=== PATIENT | male | born 1965 | race Caucasian/White ===

== ENCOUNTER → 2016-11-11 | Outpatient (CLI) | payer BC | LOC: MW.LAB 08:41 | PROVIDERS: ATTEND Transplant Surgery | DX: Z51.81 Encounter for therapeutic drug level monitoring (principal); Z79.899 Other long term (current) drug therapy; Z94.4 Liver transplant status | CPT/HCPCS: 36415; 80053; 80197; 82248; 82977; 85025; 85610; 87497 ==

== ENCOUNTER → 2016-11-25 | Outpatient (CLI) | payer BC | LOC: MW.LAB 08:47 | PROVIDERS: ATTEND Transplant Surgery | DX: Z51.81 Encounter for therapeutic drug level monitoring (principal); Z79.899 Other long term (current) drug therapy; Z94.4 Liver transplant status | CPT/HCPCS: 36415; 80053; 80197; 82248; 82977; 85025; 85610 ==

== ENCOUNTER → 2016-12-09 | Outpatient (CLI) | payer BC | END | disposition home or self-care (01) | LOC: MW.LAB 08:48 | PROVIDERS: ATTEND Internal Medicine | DX: Z51.81 Encounter for therapeutic drug level monitoring (principal); R60.9 Edema, unspecified; N18.3 Chronic kidney disease, stage 3 (moderate); Z94.0 Kidney transplant status; Z94.4 Liver transplant status | CPT/HCPCS: 36415; 81001; 82247; 82248; 82570; 84100; 84156; 84550 ==

== ENCOUNTER → 2016-12-09 | Outpatient (CLI) | payer BC | END | disposition home or self-care (01) | LOC: MW.LAB 08:44 | PROVIDERS: ATTEND Transplant Surgery | DX: Z51.81 Encounter for therapeutic drug level monitoring (principal); Z94.4 Liver transplant status; Z79.899 Other long term (current) drug therapy; R60.9 Edema, unspecified; N18.3 Chronic kidney disease, stage 3 (moderate); Z94.0 Kidney transplant status | CPT/HCPCS: 36415; 80053; 80197; 81001; 82247; 82248; 82570; 82977; 84100; 84156; 84550; 85025; 85610 ==

== ENCOUNTER → 2016-12-16 | Outpatient (CLI) | payer BC | LOC: MW.LAB 08:38 | PROVIDERS: ATTEND Transplant Surgery | DX: Z51.81 Encounter for therapeutic drug level monitoring (principal); Z79.899 Other long term (current) drug therapy; Z94.4 Liver transplant status | CPT/HCPCS: 36415; 80053; 80197; 82248; 82977; 85025; 85610 ==

== ENCOUNTER → 2016-12-26 | Outpatient (CLI) | payer BC | END | disposition home or self-care (01) | LOC: MW.LAB 08:48 | PROVIDERS: ATTEND Transplant Surgery | DX: Z51.81 Encounter for therapeutic drug level monitoring (principal); Z79.899 Other long term (current) drug therapy; Z94.4 Liver transplant status | CPT/HCPCS: 36415; 80053; 80197; 82248; 82977; 85025; 85610 ==

== ENCOUNTER → 2016-12-27 | Outpatient (CLI) | payer BC | LOC: MW.CHFP 12:14 | PROVIDERS: ATTEND Emergency Medicine | DX: E87.6 Hypokalemia (principal); E87.1 Hypo-osmolality and hyponatremia | CPT/HCPCS: 36415; 80048 ==

== ENCOUNTER → 2016-12-30 | Outpatient (CLI) | payer BC | END | disposition home or self-care (01) | LOC: MW.LAB 08:42 | PROVIDERS: ATTEND Transplant Surgery | DX: Z51.81 Encounter for therapeutic drug level monitoring (principal); Z79.899 Other long term (current) drug therapy; Z94.4 Liver transplant status | CPT/HCPCS: 36415; 80053; 80197; 82248; 82977; 85025; 85610; 87497 ==

== ENCOUNTER → 2017-01-06 | Outpatient (CLI) | payer BC ==
--- NOTE | 2017-01-06 13:45 | CR ---
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 Site : 1965 Study: XRay Chest -01/06/2017 11:36:27 AM Ordering Physician: Sugey Brooks Final Report: HISTORY: Pleural effusion. Shortness of breath. Comparison: 10/07/2016. Technique: Chest, 2 views. Findings: Embolization coils in the upper abdomen. These were present previously. Elevation of the dome of the right hemidiaphragm, stable. Atelectasis at the right lung base. Central airway is normal. Osseous structures are intact. Heart size and pulmonary vasculature are stable. Impression: 1. Elevation of the dome of the right hemidiaphragm. 2. Although this could represent a subpulmonic pleural effusion, the appearance is unchanged from 10/07/2016. 3. No acute airspace disease. Dictated by Kelby Gar MD @ Jan 06 2017 1:23PM (Electronic Signature) Report Signed by Proxy and Original Signed Document filed in the Medical Record. MTDD
== END ==
LOC: MW.CHIM 10:50
PROVIDERS: ATTEND Internal Medicine
DX: J90 Pleural effusion, not elsewhere classified (principal)
CPT/HCPCS: 36415; 71020; 71020-26; 80053; 81001; 82570; 83735; 84100; 84156; 84550; 85025

== ENCOUNTER → 2017-01-13 | Outpatient (CLI) | payer BC | LOC: MW.LAB 08:25 | PROVIDERS: ATTEND Transplant Surgery | DX: Z51.81 Encounter for therapeutic drug level monitoring (principal); Z94.4 Liver transplant status; Z79.899 Other long term (current) drug therapy | CPT/HCPCS: 36415; 80053; 80197; 82248; 82977; 85025; 85610 ==

== ENCOUNTER 2021-02-18 20:43 | Emergency (ER) | payer MEDICARE, BC ==
[2021-02-18 21:28] VITALS: BP 143/88; PULSE 114
[2021-02-18] MEDS ORDERED: diphenhydrAMINE 50 MG Cap PO ONE (21:51)
--- NOTE | 2021-02-18 21:57 | EDM.PDOC ---
ED HPI GENERAL MEDICAL PROBLEM - General Chief Complaint: General Stated Complaint: SHINGLES Time Seen by Provider: 02/18/21 21:23 - History of Present Illness INITIAL COMMENTS - FREE TEXT/NARRATIVE: History of present illness: [] Patient had shingles the beginning of January. He was put on 10-day course of antivirals. He was put on steroids. Now he has crusted healed areas on his back and scalp. The pain is unbearable. He has had Dilaudid once a day prescribed by his primary doctor as well as gabapentin and he is on valacyclovir again per his . He has a diuretic and has been told by his transplant doctor that he can take one half times the recommended dose when his leg swell. He has not initiated that. He is making urine. He gets his lab work done tomorrow morning and would rather wait and have it done as scheduled. Patient also has edema in both lower extremities. That is worse than it had been recently. Review of systems: As per history of present illness and below otherwise all systems reviewed and negative. Past medical history: As per history of present illness and as reviewed below otherwise noncontributory. Surgical history: As per history of present illness and as reviewed below otherwise noncontributory. Social history: No reported history of drug or alcohol abuse. Family history: As per history of present illness and as reviewed below otherwise noncontributory. Physical exam: Constitutional - well developed, well-nourished and in no acute distress HEENT -the few crusted lesions from his prior shingles rash. Normocephalic, no evidence of trauma - external nose and mouth normal - no mass in neck and no JVD - mucosae moist EYES - full EOM, PERRL, no icterus - no evidence of inflammation, injection, or drainage Respiratory - no respiratory distress, equal bilateral expansion, lungs clear to auscultation and no abnormal lung sounds Cardiovascular - Regular Rhythm with S1 and S2 appreciated and no murmur, gallop or rub. GI - abdomen soft without distension or organomegaly - normal bowel sounds - no guard or rebound Musculoskeletal no gross deformity of long bones or joints - no tenderness but with significant venous stasis type edema and discoloration of both lower extremities. Neurologic - Alert and oriented times four - CN II-XII grossly intact - motor sensory and coordination symmetrically normal Psychiatric - appropriate mood and affect with normal thought content Hematologic - No petechiae or purpura - mucosa appropriate color and sclera not pale - normal nail bed color and refill Integument -few crusted lesions scabbed over well on his upper left posterior shoulder and neck from prior shingles. Otherwise no rash or evidence of trauma - normal turgor Diagnostics: [] Therapeutics: [] Impression: [] Plan: [] Definitive disposition and diagnosis as appropriate pending reevaluation and review of above. head,shoulders Pain Score (Numeric/FACES): 6 - Related Data Allergies Allergy/AdvReac Type Severity Reaction Status Date / Time ipratropium bromide Allergy unkown Verified 02/18/21 21:28 [From Atrovent] Home Meds: Home Meds Multivitamin [Multivitamins] 1 tab PO DAILY 09/03/14 [History] Famotidine 10 mg PO DAILY 02/18/16 [History] Polyethylene Glycol 3350 [MiraLAX] 17 gm PO DAILY PRN 02/18/16 [History] Valganciclovir HCl 900 mg PO BID 02/18/16 [History] Vitamin B Complex [B Complex] 1 each PO DAILY 02/18/16 [History] Albuterol Sulfate 2.5 mg IH Q4H PRN 05/21/16 [History] Albuterol Sulfate [Proair Hfa] 1 inh IH Q4H PRN 05/21/16 [History] Cetirizine [ZyrTEC] 10 mg PO DAILY 05/21/16 [History] Cholecalciferol (Vitamin D3) [Vitamin D3] 1,000 mg PO DAILY 05/21/16 [History] Methylcellulose [Citrucel] 1,000 mg PO TID PRN 05/21/16 [History] Sertraline [Zoloft] 100 mg PO DAILY 05/21/16 [History] Sirolimus [Rapamune] 3 mg PO DAILY 05/21/16 [History] Tacrolimus [Prograf] 1 mg PO BEDTIME 05/21/16 [History] Tacrolimus [Prograf] 2 mg PO DAILY 05/21/16 [History] Acetaminophen/oxyCODONE [Percocet 325-5 MG] 1 - 2 each PO Q4H PRN #20 tab 02/18/21 [Rx] Past Medical History HEENT History: Reports: Impaired Vision, Other (See Below) Other HEENT History: chronic post nasal drip Cardiovascular History: Reports: Stents Respiratory History: Reports: Asthma, Other (See Below) Other Respiratory History: breathing problems- on 1L O2 at home as needed Gastrointestinal History: Reports: Other (See Below) Other Gastrointestinal History: esophageal varices, fatty liver disease Genitourinary History: Reports: Renal Disease Psychiatric History: Reports: Depression Hematologic History: Reports: Blood Transfusion(s) Other Hematologic History: easy bruising/bleeding Immunologic History: Reports: Immunosuppression, Solid Organ Transplant Other Immunologic History: Liver transplant x2 and kidney x1 - Infectious Disease History Infectious Disease History: Reports: MRSA, Other (See Below) Other Infectious Disease History: CMV - Past Surgical History Cardiovascular Surgical History: Reports: Other (See Below) Other Cardiovascular Surgeries/Procedures: stent x 1 Respiratory Surgical History: Reports: None GI Surgical History: Reports: Other (See Below) Other GI Surgeries/Procedures: TIPS procedure June 2015; liver transplant x2 First June 2015, Second August 2015 Male Surgical History: Reports: Other (See Below) Other Male Surgeries/Procedures: Kidney transplant August 2015 Musculoskeletal Surgical History: Reports: Other (See Below) Other Musculoskeletal Surgeries/Procedures:: hip surgery 2000 Social & Family History - Family History Family Medical History: No Pertinent Family History HEENT: Reports: Impaired Vision Cardiac: Reports: CAD, Heart Failure Respiratory: Reports: Asthma OBGYN: Reports: Endometriosis Endocrine/Metabolic: Reports: Diabetes, type II - Caffeine Use Caffeine Use: Reports: None - Recreational Drug Use Recreational Drug Use: No ED ROS GENERAL - Review of Systems Review Of Systems: Comprehensive ROS is negative, except as noted in HPI. ED EXAM, GENERAL - Physical Exam Exam: See Below Free Text/Narrative:: My physical exam is in the HPI. Course - Vital Signs Last Recorded V/S: Last Vital Signs Temp 36.1 C 02/18/21 21:22 Pulse 114 H 02/18/21 21:22 Resp 20 02/18/21 21:22 BP 143/88 H 02/18/21 21:22 Pulse Ox 88 L 02/18/21 21:22 - Orders/Labs/Meds Orders: Active Orders 24 hr Category Date Time Status diphenhydrAMINE [Benadryl] Med 02/18/21 21:51 Once 50 mg PO ONETIME ONE Departure - Departure Time of Disposition: 21:54 Disposition: Home, Self-Care 01 Condition: Good Clinical Impression: Post herpetic neuralgia, Pedal edema - Discharge Information Instructions: Postherpetic Neuralgia, Edema, [id number] Referrals: Kelby Huerta MD [Primary Care Provider] - Additional Instructions: Take the extra diuretic as your physician as advised. Tried diphenhydramine or Benadryl for sleep. The pain medicine can be titrated better than the once a day dose that was originally prescribed. That has been sent to your pharmacy to be picked up tomorrow. [facility] [address] [place] [id number] [address] The following information is given to patients seen in the emergency department who are being discharged to home. This information is to outline your options for follow-up care. We provide all patients seen in our emergency department with a follow-up referral. The need for follow-up, as well as the timing and circumstances, are variable depending upon the specifics of your emergency department visit. If you don't have a primary care physician on staff, we will provide you with a referral. We always advise you to contact your personal physician following an emergency department visit to inform them of the circumstance of the visit and for follow-up with them and/or the need for any referrals to a consulting specialist. The emergency department will also refer you to a specialist when appropriate. This referral assures that you have the opportunity for follow-up care with a specialist. All of these measure are taken in an effort to provide you with optimal care, which includes your follow-up. Under all circumstances we always encourage you to contact your private physician who remains a resource for coordinating your care. When calling for follow-up care, please make the office aware that this follow-up is from your recent emergency room visit. If for any reason you are refused follow-up, please contact the [facility] Emergency Department at and asked to speak to the emergency department charge nurse. Sepsis Event Note (ED) - Evaluation Sepsis Screening Result: No Definite Risk - Focused Exam Vital Signs: Vital Signs Temp Pulse Resp BP Pulse Ox 02/18/21 21:22 36.1 C 114 H 20 143/88 H 88 L - My Orders Last 24 Hours: My Active Orders 02/18/21 21:51 diphenhydrAMINE [Benadryl] 50 mg PO ONETIME ONE - Assessment/Plan Last 24 Hours: My Active Orders 02/18/21 21:51 diphenhydrAMINE [Benadryl] 50 mg PO ONETIME ONE
== END 2021-02-18 22:26 | disposition home or self-care (01) ==
LOC: MW.ED 20:43
DX: B02.29 Other postherpetic nervous system involvement (principal); R60.0 Localized edema; J45.909 Unspecified asthma, uncomplicated; Z88.8 Allergy status to other drugs, medicaments and biological substances; Z79.899 Other long term (current) drug therapy
CPT/HCPCS: 99283; A9270

== ENCOUNTER 2021-02-20 15:30 | Inpatient (IN) | payer BC ==
[2021-02-20] MEDS ORDERED: Sodium Chloride 0.9% 2.5 ML Syringe FLUSH PRN (15:35)
[2021-02-20] MEDS ORDERED: Sodium Chloride 0.9% 10 ML Syringe FLUSH PRN (15:35)
--- NOTE | 2021-02-20 15:58 | PCM.EKG ---
#1 Interpretation EKG Date: 02/20/21 Time: 15:45 Rhythm: NSR Rate (Beats/Min): 96 ST-T: Normal
[2021-02-20] MEDS ORDERED: Furosemide 40 MG/4 ML VIAL IVPUSH ONE (16:24)
[2021-02-20 16:29] LABS: BLOOD UREA NITROGEN,BUN 73 mg/dL (7.0-18.0); CARBON DIOXIDE,CO2 42.2 mmol/L (21.0-32.0); CHLORIDE,CL 95 mmol/L (98-107); GLUCOSE RANDOM 119 mg/dL (74-106); POTASSIUM,K 4.3 mmol/L (3.5-5.1); SODIUM,NA 139 mmol/L (136-148)
[2021-02-20] MEDS ORDERED: Morphine 2 MG/ML SYRINGE IVPUSH ONE (18:13)
--- NOTE | 2021-02-20 19:23 | EDM.PDOC ---
ED HPI GENERAL MEDICAL PROBLEM - General Chief Complaint: General Stated Complaint: BREATHING PROBLEMS Time Seen by Provider: 02/20/21 15:35 Source of Information: Reports: Patient History Limitations: Reports: No Limitations - History of Present Illness INITIAL COMMENTS - FREE TEXT/NARRATIVE: HISTORY AND PHYSICAL: History of present illness: Patient is a 55-year-old male, with a history of coronary artery disease status post stent, asthma on 3 to 4 L nasal cannula at home per baseline, esophageal varices status post TIPS procedure, liver transplant x2 in 2014, renal transp lant in 2015 and on immunosuppressive agents, who presents emergency room today via EMS with concern of shortness of breath worse with exertion and worsening bilateral lower extremity swelling. Patient states that he has noticed increased lower extremity swelling and worsening shortness of breath with laying back or with exertion over the past several days. Patient states he was told by his transplant team to increase his Lasix dose and is currently taking 60 mg of Lasix today. Patient is currently dealing with an episode of shingles and is on his third dose of valacyclovir. Patient states that he has been having significant pain with that shingles and has been on narcotics. Per patient's , he has not been tolerating the side effects of the narcotics very well and does get quite sleepy even after 1 dose. Patient states the pain from the shingles is a "nerve pain "and was told this was related to the shingles infection by other providers. Patient's states that he was on Dilaudid but this was too strong for patient so he had called and got switched to oxycodone and no longer taking Dilaudid. Patient's states that she last gave a dose of oxycodone at 11. Patient states prior to that he took a dose of Tylenol early this morning. Patient denies fever, chills, chest pain, or cough. Denies headache, neck stiff ness, change in vision, syncope, or near syncope. Denies nausea, vomiting, abdominal pain, diarrhea, constipation, or dysuria. Has not noted any blood in urine or stool. Patient has been eating and drinking appropriately. Review of systems: As per history of present illness and below otherwise all systems reviewed and negative. Past medical history: As per history of present illness and as reviewed below otherwise noncontributory. Surgical history: As per history of present illness and as reviewed below otherwise noncontributory. Social history: See social history for further information Family history: As per history of present illness and as reviewed below otherwise noncontributory. Physical exam: General: Patient is alert, oriented, and in no acute distress. Patient sitting comfortably on exam table, patient is 90% on 4L NC. Otherwise, vitally stable and reviewed by me. HEENT: Atraumatic, normocephalic, pupils equal and reactive bilaterally, negative for conjunctival pallor or scleral icterus, mucous membranes moist, TMs normal bilaterally, throat clear, neck supple, nontender, trachea midline. No drooling or trismus noted. No meningeal signs. No hot potato voice noted. Lungs: Fine crackles to auscultation throughout all lung gomez, breath sounds equal bilaterally, chest nontender. Patient speaking clearly without breathlessness, no wheezing or stridor, no accessory muscle use or respiratory distress. Patient does become dyspneic with laying flat. Heart: S1S2, regular rate and rhythm without overt murmur Abdomen: Soft, nondistended, nontender. Negative for masses or hepatosplenomegaly. Negative for costovertebral tenderness. Pelvis: Stable nontender. Genitourinary: Deferred. Rectal: Deferred. Skin: There are crusted over lesions in a dermatomal pattern of the left shoulder/neck neck consistent with shingles. Otherwise, intact, warm, dry. No lesions or rashes noted. Extremities: 3+ bilateral pitting edema to the knees. Otherwise, atraumatic, negative for cords or calf pain. Neurovascular unremarkable. Neuro: Awake, alert, oriented. Cranial nerves II through XII unremarkable. Cerebellum unremarkable. Motor and sensory unremarkable throughout. Exam nonfocal. Notes: Patient is a 55-year-old male, with a complicated medical history including coronary artery disease, asthma on 4 L nasal cannula per baseline, liver transplant, renal transplant and immunosuppression, who presents emergency room today with concern of worsening bilateral lower extremity and shortness of breath. Per EMS report, patient was 60% when they were on scene on 4 L and transition him to 15 L nonrebreather mask. On arrival to the ED, patient is 100% on 15 L nasal cannula via EMS and transferred over to nasal cannula and is satting approximately 93 to 94% on 4 to 5 L nasal cannula. Patient is breathing comfortably on exam but does become short of breath with laying flat. Patient does have fine crackles to auscultation throughout all lung gomez and noted to have the shingles infection to his left neck/shoulder area. Will obtain cardiac evaluation at this time. See Dr. Grey's dictation for specific EKG interpretation. Otherwise, normal sinus rhythm with a rate of 96. No STEMI or signs of ischemic changes. CV is noted to have a mildly low white blood cell count at 3.06, red blood cells of 3.4, hemoglobin of 10.8, hematocrit 33.9, platelets 119 which are mildly low, otherwise mild derangements of CBC are unremarkable. D-dimer is noted to be within normal limits at 0.39. Venous blood gas shows a pH of normal at 7.4. CMP notes a chloride to be mildly low at 95, CO2 at 42.2, BUN elevated at 73 and creatinine at 1.9. Troponin negative. BNP noted to be normal at 15. Covid negative. At this time due to delayed in technology at the facility, radiology is not able to do a formal read at this time of patient's chest x-ray. However, chest x-ray shows concern for pulmonary edema with no obvious area of consolidation. Otherwise no acute cardiopulmonary findings. Will follow radiology interpr etation. Upon reevaluation of patient, he remains vitally stable and comfortable throughout stay in ED but is expressing pain due to his shingles. He is currently 4 L on nasal cannula satting at about 90% but breathing comfortably. I did call and speak to the hospitalist on-call, Dr. Waddell, and thoroughly discussed patient's case. Will admit to observation on telemetry. Voices understanding and is agreeable to plan of care. Denies any further questions or concerns at this time. Diagnostics: EKG, CBC, CMP, UA, chest x-ray, troponin, BNP, D-dimer, tacrolimus level Therapeutics: Lasix, saline lock, morphine, Tylenol Impression: Pulmonary edema Dyspnea Bilateral lower extremity edema Shingles infection Plan: Admit to observation to Dr. Waddell on telemetry Definitive disposition and diagnosis as appropriate pending reevaluation and review of above. general Pain Score (Numeric/FACES): 2 - Related Data Allergies Allergy/AdvReac Type Severity Reaction Status Date / Time ipratropium bromide Allergy unkown Verified 02/20/21 15:33 [From Atrovent] Home Meds: Home Meds Polyethylene Glycol 3350 [MiraLAX] 17 gm PO DAILY PRN 02/18/16 [History] Valganciclovir HCl 1,000 mg PO DAILY 02/18/16 [History] Vitamin B Complex [B Complex] 1 each PO DAILY 02/18/16 [History] Cetirizine [ZyrTEC] 10 mg PO DAILY PRN 05/21/16 [History] Cholecalciferol (Vitamin D3) [Vitamin D3] 1,000 mg PO DAILY 05/21/16 [History] Tacrolimus [Prograf] 0.75 mg PO DAILY 05/21/16 [History] Acetaminophen/oxyCODONE [Percocet 325-5 MG] 1 - 2 each PO Q4H PRN #20 tab 02/18/21 [Rx] Past Medical History HEENT History: Reports: Impaired Vision, Other (See Below) Other HEENT History: chronic post nasal drip Cardiovascular History: Reports: Stents Respiratory History: Reports: Asthma, Other (See Below) Other Respiratory History: breathing problems- on 4L O2 at home as needed Gastrointestinal History: Reports: Other (See Below) Other Gastrointestinal History: esophageal varices, fatty liver disease Genitourinary History: Reports: Renal Disease Psychiatric History: Reports: Depression Hematologic History: Reports: Blood Transfusion(s) Other Hematologic History: easy bruising/bleeding Immunologic History: Reports: Immunosuppression, Solid Organ Transplant Other Immunologic History: Liver transplant x2 and kidney x1 - Infectious Disease History Infectious Disease History: Reports: MRSA, Other (See Below) Other Infectious Disease History: CMV - Past Surgical History Cardiovascular Surgical History: Reports: Other (See Below) Other Cardiovascular Surgeries/Procedures: stent x 1 Respiratory Surgical History: Reports: None GI Surgical History: Reports: Other (See Below) Other GI Surgeries/Procedures: TIPS procedure June 2015; liver transplant x2 First June 2015, Second August 2015 Male Surgical History: Reports: Other (See Below) Other Male Surgeries/Procedures: Kidney transplant August 2015 Musculoskeletal Surgical History: Reports: Other (See Below) Other Musculoskeletal Surgeries/Procedures:: hip surgery 2000 Social & Family History - Family History Family Medical History: No Pertinent Family History HEENT: Reports: Impaired Vision Cardiac: Reports: CAD, Heart Failure Respiratory: Reports: Asthma OBGYN: Reports: Endometriosis Endocrine/Metabolic: Reports: Diabetes, type II - Tobacco Use Tobacco Use Status *Q: Never Tobacco User - Caffeine Use Caffeine Use: Reports: None - Recreational Drug Use Recreational Drug Use: No ED ROS GENERAL - Review of Systems Review Of Systems: Comprehensive ROS is negative, except as noted in HPI. ED EXAM, GENERAL - Physical Exam Exam: See Below (see dictation) Course - Vital Signs Last Recorded V/S: Last Vital Signs Temp 98 F 02/20/21 15:34 Pulse 101 H 02/20/21 19:10 Resp 20 02/20/21 19:10 BP 118/76 02/20/21 19:10 Pulse Ox 93 L 02/20/21 19:10 - Orders/Labs/Meds Orders: Active Orders 24 hr Category Date Time Status Cardiac Monitoring [RC] . DIRECTED Care 02/20/21 15:35 Active EKG Documentation Completion [RC] STAT Care 02/20/21 15:35 Active TACROLIMUS (FK506), BLOOD [REF] Stat Lab 02/20/21 15:36 Ordered Sodium Chloride 0.9% [Saline Flush] Med 02/20/21 15:35 Active 10 ml FLUSH ASDIRECTED PRN Sodium Chloride 0.9% [Saline Flush] Med 02/20/21 15:35 Active 2.5 ml FLUSH ASDIRECTED PRN Saline Lock Insert [OM.PC] Stat Oth 02/20/21 15:35 Ordered Medication Orders Albuterol (Albuterol 0.5% 5 Mg/Ml Neb Soln 20 Ml Bottle) 5 mg NEB Q4HRRT PRN PRN Reason: Shortness of Breath Azithromycin (Azithromycin 500 Mg Vial) 250 mg IV Q24H JAMILA Ceftriaxone Sodium (Ceftriaxone 1 Gm Vial) 1 gm IVPUSH Q24H JAMILA Furosemide (Furosemide 40 Mg/4 Ml Vial) 40 mg IVPUSH BID JAMILA Heparin Sodium (Porcine) (Heparin Sodium 5,000 Units/Ml Vial) 5,000 units SUBCUT Q8H JAMILA Azithromycin 500 mg/ Sodium (Chloride) 250 mls @ 250 mls/hr IV ONETIME JAMILA Morphine Sulfate (Morphine 2 Mg/Ml Syringe) 1 mg IVPUSH Q4H PRN PRN Reason: Pain Ondansetron HCl (Ondansetron 4 Mg/2 Ml Sdv) 4 mg IVPUSH Q4H PRN PRN Reason: Nausea/Vomiting Sodium Chloride (Sodium Chloride 0.9% 10 Ml Syringe) 10 ml FLUSH ASDIRECTED PRN PRN Reason: Keep Vein Open Last Admin: 02/20/21 15:47 Dose: 10 ml Documented by: ANNABELLE Sodium Chloride (Sodium Chloride 0.9% 2.5 Ml Syringe) 2.5 ml FLUSH ASDIRECTED PRN PRN Reason: Keep Vein Open Last Admin: 02/20/21 15:47 Dose: 2.5 ml Documented by: ANNABELLE Labs: Laboratory Tests 02/20/21 02/20/21 02/20/21 Range/Units 15:35 15:35 15:35 WBC 3.06 L (4.0-11.0) K/uL RBC 3.40 L (4.50-5.90) M/uL Hgb 10.8 L (13.0-17.0) g/dL Hct 33.9 L (38.0-50.0) % MCV 99.7 H (80.0-98.0) fL MCH 31.8 (27.0-32.0) pg MCHC 31.9 (31.0-37.0) g/dL RDW Std Deviation 65.1 H (28.0-62.0) fl RDW Coeff of Uday 18 H (11.0-15.0) % Plt Count 119 L (150-400) K/uL MPV 10.90 (7.40-12.00) fL Neut % (Auto) 72.3 (48.0-80.0) % Lymph % (Auto) 14.7 L (16.0-40.0) % Armstrong % (Auto) 11.4 (0.0-15.0) % Eos % (Auto) 1.6 (0.0-7.0) % Baso % (Auto) 0.0 (0.0-1.5) % Neut # (Auto) 2.2 (1.4-5.7) K/uL Lymph # (Auto) 0.5 L (0.6-2.4) K/uL Armstrong # (Auto) 0.4 (0.0-0.8) K/uL Eos # (Auto) 0.1 (0.0-0.7) K/uL Baso # (Auto) 0.0 (0.0-0.1) K/uL Nucleated RBC % 1.2 /100WBC Nucleated RBCs # 0 K/uL D-Dimer, Quantitative (0.0-0.50) mg/L FEU VBG pH (7.31-7.41) VBG pCO2 (41-51) mmHG VBG pO2 mmHG VBG HCO3 (23-28) mEq/L VBG Total CO2 (24-29) mmol/L VBG Base Excess (-2.0-3.0) Sodium 139 (136-148) mmol/L Potassium 4.3 (3.5-5.1) mmol/L Chloride 95 L (98-107) mmol/L Carbon Dioxide 42.2 H (21.0-32.0) mmol/L BUN 73 H (7.0-18.0) mg/dL Creatinine 1.9 H (0.8-1.3) mg/dL Est Cr Clr Drug Dosing 41.50 mL/min Estimated GFR (MDRD) 36.7 ml/min Glucose 119 H (74-106) mg/dL Calcium 9.4 (8.5-10.1) mg/dL Total Bilirubin 0.5 (0.2-1.0) mg/dL AST 20 (15-37) IU/L ALT 19 (14-63) IU/L Alkaline Phosphatase 66 (46-116) U/L Troponin I < 0.050 (0.000-0.056) ng/mL B-Natriuretic Peptide 15 (<100) PG/ML Total Protein 7.5 (6.4-8.2) g/dL Albumin 3.3 L (3.4-5.0) g/dL Globulin 4.2 H (2.6-4.0) g/dL Albumin/Globulin Ratio 0.8 L (0.9-1.6) SARS-CoV-2 RNA (ISAIAH) (NEGATIVE) 02/20/21 02/20/21 02/20/21 Range/Units 15:35 16:06 17:00 WBC (4.0-11.0) K/uL RBC (4.50-5.90) M/uL Hgb (13.0-17.0) g/dL Hct (38.0-50.0) % MCV (80.0-98.0) fL MCH (27.0-32.0) pg MCHC (31.0-37.0) g/dL RDW Std Deviation (28.0-62.0) fl RDW Coeff of Uday (11.0-15.0) % Plt Count (150-400) K/uL MPV (7.40-12.00) fL Neut % (Auto) (48.0-80.0) % Lymph % (Auto) (16.0-40.0) % Armstrong % (Auto) (0.0-15.0) % Eos % (Auto) (0.0-7.0) % Baso % (Auto) (0.0-1.5) % Neut # (Auto) (1.4-5.7) K/uL Lymph # (Auto) (0.6-2.4) K/uL Armstrong # (Auto) (0.0-0.8) K/uL Eos # (Auto) (0.0-0.7) K/uL Baso # (Auto) (0.0-0.1) K/uL Nucleated RBC % /100WBC Nucleated RBCs # K/uL D-Dimer, Quantitative 0.39 (0.0-0.50) mg/L FEU VBG pH 7.40 (7.31-7.41) VBG pCO2 74 H (41-51) mmHG VBG pO2 37 mmHG VBG HCO3 46 H (23-28) mEq/L VBG Total CO2 43 H (24-29) mmol/L VBG Base Excess 18.0 H (-2.0-3.0) Sodium (136-148) mmol/L Potassium (3.5-5.1) mmol/L Chloride (98-107) mmol/L Carbon Dioxide (21.0-32.0) mmol/L BUN (7.0-18.0) mg/dL Creatinine (0.8-1.3) mg/dL Est Cr Clr Drug Dosing mL/min Estimated GFR (MDRD) ml/min Glucose (74-106) mg/dL Calcium (8.5-10.1) mg/dL Total Bilirubin (0.2-1.0) mg/dL AST (15-37) IU/L ALT (14-63) IU/L Alkaline Phosphatase (46-116) U/L Troponin I (0.000-0.056) ng/mL B-Natriuretic Peptide (<100) PG/ML Total Protein (6.4-8.2) g/dL Albumin (3.4-5.0) g/dL Globulin (2.6-4.0) g/dL Albumin/Globulin Ratio (0.9-1.6) SARS-CoV-2 RNA (ISAIAH) NEGATIVE (NEGATIVE) Meds: Medications Generic Name Dose Route Start Last Admin Trade Name Kisha PRN Reason Stop Dose Admin Albuterol 5 mg 02/20/21 21:25 Albuterol 0.5% 5 Mg/Ml Neb Soln 20 Ml Bottle NEB Q4HRRT PRN Shortness of Breath Azithromycin 250 mg 02/21/21 09:00 Azithromycin 500 Mg Vial IV Q24H JAMILA Ceftriaxone Sodium 1 gm 02/20/21 20:15 Ceftriaxone 1 Gm Vial IVPUSH Q24H JAMILA Furosemide 40 mg 02/21/21 09:00 Furosemide 40 Mg/4 Ml Vial IVPUSH BID JAMILA Heparin Sodium (Porcine) 5,000 units 02/20/21 20:00 Heparin Sodium 5,000 Units/Ml Vial SUBCUT Q8H JAMILA Azithromycin 500 mg/ Sodium 250 mls @ 250 mls/hr 02/20/21 20:15 Chloride IV ONETIME JAMILA Morphine Sulfate 1 mg 02/20/21 21:26 Morphine 2 Mg/Ml Syringe IVPUSH Q4H PRN Pain Ondansetron HCl 4 mg 02/20/21 20:00 Ondansetron 4 Mg/2 Ml Sdv IVPUSH Q4H PRN Nausea/Vomiting Sodium Chloride 10 ml 02/20/21 15:35 02/20/21 15:47 Sodium Chloride 0.9% 10 Ml Syringe FLUSH 10 ml ASDIRECTED PRN Administration Keep Vein Open Sodium Chloride 2.5 ml 02/20/21 15:35 02/20/21 15:47 Sodium Chloride 0.9% 2.5 Ml Syringe FLUSH 2.5 ml ASDIRECTED PRN Administration Keep Vein Open Discontinued Medications Generic Name Dose Route Start Last Admin Trade Name Kisha PRN Reason Stop Dose Admin Albuterol/Ipratropium 3 ml 02/20/21 20:00 Albuterol/Ipratropium 3.0-0.5 Mg/3 Ml Neb Soln NEB Q4HRRT PRN Shortness Of Breath/wheezing Azithromycin 250 mg 02/20/21 20:08 Azithromycin 500 Mg Vial IV Q24H JAMILA Furosemide 20 mg 02/20/21 16:24 02/20/21 16:54 Furosemide 40 Mg/4 Ml Vial IVPUSH 02/20/21 16:25 20 mg NOW ONE Administration Morphine Sulfate 2 mg 02/20/21 18:13 02/20/21 18:18 Morphine 2 Mg/Ml Syringe IVPUSH 02/20/21 18:14 2 mg ONETIME ONE Administration Departure - Departure Time of Disposition: 19:31 Disposition: Refer to Observation Clinical Impression: Bilateral lower extremity edema Pulmonary edema Qualifiers: Chronicity: acute Qualified Code(s): J81.0 - Acute pulmonary edema Dyspnea Qualifiers: Dyspnea type: dyspnea on exertion Qualified Code(s): R06.00 - Dyspnea, unspecified Shingles Qualifiers: Herpes zoster complications: without complications Qualified Code(s): B02.9 - Zoster without complications - Discharge Information Sepsis Event Note (ED) - Evaluation Sepsis Screening Result: No Definite Risk - Focused Exam Vital Signs: Vital Signs Temp Pulse Resp BP Pulse Ox 02/20/21 17:50 95 19 130/77 94 L 02/20/21 17:20 93 17 108/60 95 02/20/21 16:37 98 20 103/64 90 L 02/20/21 15:34 98 F 101 H 113/78 94 L - My Orders Last 24 Hours: My Active Orders 02/20/21 15:35 Cardiac Monitoring [RC] . DIRECTED EKG Documentation Completion [RC] STAT Sodium Chloride 0.9% [Saline Flush] 10 ml FLUSH ASDIRECTED PRN Sodium Chloride 0.9% [Saline Flush] 2.5 ml FLUSH ASDIRECTED PRN Saline Lock Insert [OM.PC] Stat 02/20/21 15:36 TACROLIMUS (FK506), BLOOD [REF] Stat - Assessment/Plan Last 24 Hours: My Active Orders 02/20/21 15:35 Cardiac Monitoring [RC] . DIRECTED EKG Documentation Completion [RC] STAT Sodium Chloride 0.9% [Saline Flush] 10 ml FLUSH ASDIRECTED PRN Sodium Chloride 0.9% [Saline Flush] 2.5 ml FLUSH ASDIRECTED PRN Saline Lock Insert [OM.PC] Stat 02/20/21 15:36 TACROLIMUS ([id number]), BLOOD [REF] Stat
--- NOTE | 2021-02-20 19:33 | CR ---
For Patients: As a result of the Century Cures Act, medical imaging exams and procedure reports are released immediately into your electronic medical record. You may view this report before your referring provider. If you have questions, please contact your health care provider. INDICATION: Shortness of breath. TECHNIQUE: Chest 1 view. COMPARISON: Chest radiograph 04/25/2020. FINDINGS: Low lung volumes with bibasilar atelectasis. Stable elevation of the right hemidiaphragm. No pleural effusion or pneumothorax. Mildly increased interstitial opacities bilaterally could be due to edema or atypical infection. Stable heart size which appears mildly enlarged. Crowding of the hilar vasculature due to low lung volumes. Embolization coils in the upper abdomen. The bones are unremarkable. IMPRESSION: Mildly increased interstitial opacities bilaterally could be due to edema or atypical infection. Dictated by Ana Hamlin MD @ 02/20/2021 7:31:[address] Ana Hamlin @ Feb 20 2021 7:31PM
[2021-02-20] MEDS ORDERED: Ondansetron 4 MG/2 ML SDV IVPUSH PRN (20:00)
[2021-02-20] MEDS ORDERED: Albuterol/Ipratropium 3.0-0.5 MG/3 ML Neb Soln NEB PRN (20:00)
[2021-02-20] MEDS ORDERED: Azithromycin 500 MG Vial IV SCH (20:08)
--- NOTE | 2021-02-20 20:11 | PCM.HP.2 ---
H&P History of Present Illness - General Date of Service: 02/20/21 Admit Problem/Dx: Admission Diagnosis/Problem Admission Diagnosis/Problem Fluid imbalance - History of Present Illness Initial Comments - Free Text/Narative: Patient is a 55-year-old male, with a history of coronary artery disease status post stent, asthma, diastolic dysfunction, possible COPD on 3 to 4 L nasal cannula at home per baseline, esophageal varices status post TIPS procedure, liver transplant x2 in 2014, renal transplant in 2014 and on immunosuppressive agents, who presents emergency room today via EMS with concern of shortness of breath worse with exertion and worsening bilateral lower extremity swelling. Patient states that he has been feeling increasingly short of breath with worsening pedal edema for last 2 days. He did the ER few days back and was sent home with instructions to increase his Lasix dose. Patient states that he uses oxygen at home as needed but for last 2 days he has been needing to use it more often. Patient had an telemetry appointment with his transplant team today and they recommended increasing Lasix to 80 mg daily, they were also concerned at the amount of the opioids and gabapentin he is taking. Patient is currently dealing with episode of shingles and is on valacyclovir for that. Patient states that he has been in significant amount of pain has been take Percocet to handle his pain. Patient was initially on Dilaudid but that was making more more confused so he was switched to Percocet by the ER physician. Patient denies fever, chills, chest pain, or cough. Denies headache, neck stiff ness, change in vision, syncope, or near syncope. Denies nausea, vomiting, abdominal pain, diarrhea, constipation, or dysuria. Has not noted any blood in urine or stool. Patient has been eating and drinking appropriately. Chest x-ray in the ER showed bilateral interstitial opacities suggestive of edema versus atypical infection, patient received 20 mg IV Lasix in the ER he had already taken 60 of p.o. Lasix today. Troponin was negative, EKG did not show any changes. Patient was admitted for acute on chronic hypoxic respiratory failure. Review of chart shows that patient does have diastolic heart failure demonstrated on 2D echo done in April 2020. general Pain Score (Numeric/FACES): 2 - Related Data Allergies/Adverse Reactions: Allergies Allergy/AdvReac Type Severity Reaction Status Date / Time ipratropium bromide Allergy unkown Verified 02/20/21 15:33 [From Atrovent] Home Medications: Home Meds Polyethylene Glycol 3350 [MiraLAX] 17 gm PO DAILY PRN 02/18/16 [History] Valganciclovir HCl 1,000 mg PO DAILY 02/18/16 [History] Vitamin B Complex [B Complex] 1 each PO DAILY 02/18/16 [History] Cetirizine [ZyrTEC] 10 mg PO DAILY PRN 05/21/16 [History] Cholecalciferol (Vitamin D3) [Vitamin D3] 1,000 mg PO DAILY 05/21/16 [History] Tacrolimus [Prograf] 0.75 mg PO DAILY 05/21/16 [History] Acetaminophen/oxyCODONE [Percocet 325-5 MG] 1 - 2 each PO Q4H PRN #20 tab 02/18/21 [Rx] Past Medical History HEENT History: Reports: Impaired Vision, Other (See Below) Other HEENT History: chronic post nasal drip Cardiovascular History: Reports: Stents Respiratory History: Reports: Asthma, Other (See Below) Other Respiratory History: breathing problems- on 4L O2 at home as needed Gastrointestinal History: Reports: Other (See Below) Other Gastrointestinal History: esophageal varices, fatty liver disease Genitourinary History: Reports: Renal Disease Psychiatric History: Reports: Depression Hematologic History: Reports: Blood Transfusion(s) Other Hematologic History: easy bruising/bleeding Immunologic History: Reports: Immunosuppression, Solid Organ Transplant Other Immunologic History: Liver transplant x2 and kidney x1 - Infectious Disease History Infectious Disease History: Reports: MRSA, Other (See Below) Other Infectious Disease History: CMV - Past Surgical History Cardiovascular Surgical History: Reports: Other (See Below) Other Cardiovascular Surgeries/Procedures: stent x 1 Respiratory Surgical History: Reports: None GI Surgical History: Reports: Other (See Below) Other GI Surgeries/Procedures: TIPS procedure June 2015; liver transplant x2 First June 2015, Second August 2015 Male Surgical History: Reports: Other (See Below) Other Male Surgeries/Procedures: Kidney transplant August 2015 Musculoskeletal Surgical History: Reports: Other (See Below) Other Musculoskeletal Surgeries/Procedures:: hip surgery 2000 Social & Family History - Family History Family Medical History: No Pertinent Family History HEENT: Reports: Impaired Vision Cardiac: Reports: CAD, Heart Failure Respiratory: Reports: Asthma OBGYN: Reports: Endometriosis Endocrine/Metabolic: Reports: Diabetes, type II - Tobacco Use Tobacco Use Status *Q: Never Tobacco User - Caffeine Use Caffeine Use: Reports: None - Recreational Drug Use Recreational Drug Use: No H&P Review of Systems - Review of Systems: Review Of Systems: See Below General: Reports: Malaise, Weakness. Denies: Fever, Chills Pulmonary: Reports: Shortness of Breath. Denies: Wheezing, Pleuritic Chest Pain, Sputum Cardiovascular: Reports: Dyspnea on Exertion, Orthopnea, PND, Edema. Denies: Chest Pain, Palpitations, Lightheadedness, Claudication Gastrointestinal: Denies: Abdominal Pain, Anorexia, Black Stool, Bloody Stool Genitourinary: Denies: No Symptoms, Dysuria, Frequency, Burning, Urgency Musculoskeletal: Denies: Neck Pain, Shoulder Pain, Arm Pain Skin: Denies: Cyanosis, Jaundice, Mottled Psychiatric: Denies: Confusion, Depression, Mood Lability Exam - Exam Exam: See Below - Vital Signs Vital Signs: Last Vital Signs Temp 36.6 C 02/20/21 15:34 Pulse 101 H 02/20/21 19:10 Resp 20 02/20/21 19:10 BP 118/76 02/20/21 19:10 Pulse Ox 93 L 02/20/21 19:10 Weight: 124.738 kg - Exam Quality Assessment: Supplemental Oxygen General: Alert, Oriented, Cooperative, Mild Distress Neck: Supple, Trachea Midline Lungs: Normal Respiratory Effort, Decreased Breath Sounds, Crackles Cardiovascular: Regular Rate, Regular Rhythm GI/Abdominal Exam: Normal Bowel Sounds, Soft, Non-Tender Extremities: Pedal Edema. No: Non-Tender, No Pedal Edema - Patient Data Lab Results Last 24 hrs: Laboratory Results - last 24 hr 02/20/21 02/20/21 02/20/21 Range/Units 15:35 15:35 15:35 WBC 3.06 L (4.0-11.0) K/uL RBC 3.40 L (4.50-5.90) M/uL Hgb 10.8 L (13.0-17.0) g/dL Hct 33.9 L (38.0-50.0) % MCV 99.7 H (80.0-98.0) fL MCH 31.8 (27.0-32.0) pg MCHC 31.9 (31.0-37.0) g/dL RDW Std Deviation 65.1 H (28.0-62.0) fl RDW Coeff of Uday 18 H (11.0-15.0) % Plt Count 119 L (150-400) K/uL MPV 10.90 (7.40-12.00) fL Neut % (Auto) 72.3 (48.0-80.0) % Lymph % (Auto) 14.7 L (16.0-40.0) % [place] % (Auto) 11.4 (0.0-15.0) % Eos % (Auto) 1.6 (0.0-7.0) % Baso % (Auto) 0.0 (0.0-1.5) % Neut # (Auto) 2.2 (1.4-5.7) K/uL Lymph # (Auto) 0.5 L (0.6-2.4) K/uL [place] # (Auto) 0.4 (0.0-0.8) K/uL Eos # (Auto) 0.1 (0.0-0.7) K/uL Baso # (Auto) 0.0 (0.0-0.1) K/uL Nucleated RBC % 1.2 /100WBC Nucleated RBCs # 0 K/uL D-Dimer, Quantitative (0.0-0.50) mg/L FEU VBG pH (7.31-7.41) VBG pCO2 (41-51) mmHG VBG pO2 mmHG VBG HCO3 (23-28) mEq/L VBG Total CO2 (24-29) mmol/L VBG Base Excess (-2.0-3.0) Sodium 139 (136-148) mmol/L Potassium 4.3 (3.5-5.1) mmol/L Chloride 95 L (98-107) mmol/L Carbon Dioxide 42.2 H (21.0-32.0) mmol/L BUN 73 H (7.0-18.0) mg/dL Creatinine 1.9 H (0.8-1.3) mg/dL Est Cr Clr Drug Dosing 41.50 mL/min Estimated GFR (MDRD) 36.7 ml/min Glucose 119 H (74-106) mg/dL Calcium 9.4 (8.5-10.1) mg/dL Total Bilirubin 0.5 (0.2-1.0) mg/dL AST 20 (15-37) IU/L ALT 19 (14-63) IU/L Alkaline Phosphatase 66 (46-116) U/L Troponin I < 0.050 (0.000-0.056) ng/mL B-Natriuretic Peptide 15 (<100) PG/ML Total Protein 7.5 (6.4-8.2) g/dL Albumin 3.3 L (3.4-5.0) g/dL Globulin 4.2 H (2.6-4.0) g/dL Albumin/Globulin Ratio 0.8 L (0.9-1.6) Urine Color Urine Appearance Urine pH (5.0-8.0) Ur Specific Traer (1.001-1.035) Urine Protein (NEGATIVE) mg/dL Urine Glucose (UA) (NEGATIVE) mg/dL Urine Ketones (NEGATIVE) mg/dL Urine Occult Blood (NEGATIVE) Urine Nitrite (NEGATIVE) Urine Bilirubin (NEGATIVE) Urine Urobilinogen (<2.0) EU/dL Ur Leukocyte Esterase (NEGATIVE) SARS-CoV-2 RNA (ISAIAH) (NEGATIVE) 02/20/21 02/20/21 02/20/21 Range/Units 15:35 16:06 17:00 WBC (4.0-11.0) K/uL RBC (4.50-5.90) M/uL Hgb (13.0-17.0) g/dL Hct (38.0-50.0) % MCV (80.0-98.0) fL MCH (27.0-32.0) pg MCHC (31.0-37.0) g/dL RDW Std Deviation (28.0-62.0) fl RDW Coeff of Uday (11.0-15.0) % Plt Count (150-400) K/uL MPV (7.40-12.00) fL Neut % (Auto) (48.0-80.0) % Lymph % (Auto) (16.0-40.0) % [place] % (Auto) (0.0-15.0) % Eos % (Auto) (0.0-7.0) % Baso % (Auto) (0.0-1.5) % Neut # (Auto) (1.4-5.7) K/uL Lymph # (Auto) (0.6-2.4) K/uL [place] # (Auto) (0.0-0.8) K/uL Eos # (Auto) (0.0-0.7) K/uL Baso # (Auto) (0.0-0.1) K/uL Nucleated RBC % /100WBC Nucleated RBCs # K/uL D-Dimer, Quantitative 0.39 (0.0-0.50) mg/L FEU VBG pH 7.40 (7.31-7.41) VBG pCO2 74 H (41-51) mmHG VBG pO2 37 mmHG VBG HCO3 46 H (23-28) mEq/L VBG Total CO2 43 H (24-29) mmol/L VBG Base Excess 18.0 H (-2.0-3.0) Sodium (136-148) mmol/L Potassium (3.5-5.1) mmol/L Chloride (98-107) mmol/L Carbon Dioxide (21.0-32.0) mmol/L BUN (7.0-18.0) mg/dL Creatinine (0.8-1.3) mg/dL Est Cr Clr Drug Dosing mL/min Estimated GFR (MDRD) ml/min Glucose (74-106) mg/dL Calcium (8.5-10.1) mg/dL Total Bilirubin (0.2-1.0) mg/dL AST (15-37) IU/L ALT (14-63) IU/L Alkaline Phosphatase (46-116) U/L Troponin I (0.000-0.056) ng/mL B-Natriuretic Peptide (<100) PG/ML Total Protein (6.4-8.2) g/dL Albumin (3.4-5.0) g/dL Globulin (2.6-4.0) g/dL Albumin/Globulin Ratio (0.9-1.6) Urine Color Urine Appearance Urine pH (5.0-8.0) Ur Specific Traer (1.001-1.035) Urine Protein (NEGATIVE) mg/dL Urine Glucose (UA) (NEGATIVE) mg/dL Urine Ketones (NEGATIVE) mg/dL Urine Occult Blood (NEGATIVE) Urine Nitrite (NEGATIVE) Urine Bilirubin (NEGATIVE) Urine Urobilinogen (<2.0) EU/dL Ur Leukocyte Esterase (NEGATIVE) SARS-CoV-2 RNA (ISAIAH) NEGATIVE (NEGATIVE) 02/20/21 Range/Units 18:15 WBC (4.0-11.0) K/uL RBC (4.50-5.90) M/uL Hgb (13.0-17.0) g/dL Hct (38.0-50.0) % MCV (80.0-98.0) fL MCH (27.0-32.0) pg MCHC (31.0-37.0) g/dL RDW Std Deviation (28.0-62.0) fl RDW Coeff of Uday (11.0-15.0) % Plt Count (150-400) K/uL MPV (7.40-12.00) fL Neut % (Auto) (48.0-80.0) % Lymph % (Auto) (16.0-40.0) % [place] % (Auto) (0.0-15.0) % Eos % (Auto) (0.0-7.0) % Baso % (Auto) (0.0-1.5) % Neut # (Auto) (1.4-5.7) K/uL Lymph # (Auto) (0.6-2.4) K/uL [place] # (Auto) (0.0-0.8) K/uL Eos # (Auto) (0.0-0.7) K/uL Baso # (Auto) (0.0-0.1) K/uL Nucleated RBC % /100WBC Nucleated RBCs # K/uL D-Dimer, Quantitative (0.0-0.50) mg/L FEU VBG pH (7.31-7.41) VBG pCO2 (41-51) mmHG VBG pO2 mmHG VBG HCO3 (23-28) mEq/L VBG Total CO2 (24-29) mmol/L VBG Base Excess (-2.0-3.0) Sodium (136-148) mmol/L Potassium (3.5-5.1) mmol/L Chloride (98-107) mmol/L Carbon Dioxide (21.0-32.0) mmol/L BUN (7.0-18.0) mg/dL Creatinine (0.8-1.3) mg/dL Est Cr Clr Drug Dosing mL/min Estimated GFR (MDRD) ml/min Glucose (74-106) mg/dL Calcium (8.5-10.1) mg/dL Total Bilirubin (0.2-1.0) mg/dL AST (15-37) IU/L ALT (14-63) IU/L Alkaline Phosphatase (46-116) U/L Troponin I (0.000-0.056) ng/mL B-Natriuretic Peptide (<100) PG/ML Total Protein (6.4-8.2) g/dL Albumin (3.4-5.0) g/dL Globulin (2.6-4.0) g/dL Albumin/Globulin Ratio (0.9-1.6) Urine Color YELLOW Urine Appearance CLEAR Urine pH 5.0 (5.0-8.0) Ur Specific Traer 1.020 (1.001-1.035) Urine Protein NEGATIVE (NEGATIVE) mg/dL Urine Glucose (UA) NEGATIVE (NEGATIVE) mg/dL Urine Ketones NEGATIVE (NEGATIVE) mg/dL Urine Occult Blood NEGATIVE (NEGATIVE) Urine Nitrite NEGATIVE (NEGATIVE) Urine Bilirubin NEGATIVE (NEGATIVE) Urine Urobilinogen 0.2 (<2.0) EU/dL Ur Leukocyte Esterase NEGATIVE (NEGATIVE) SARS-CoV-2 RNA (ISAIAH) (NEGATIVE) Result Diagrams: 02/20/21 15:35 02/20/21 15:35 Sepsis Event Note - Evaluation Sepsis Screening Result: No Definite Risk - Focused Exam Vital Signs: Vital Signs Temp Pulse Resp BP Pulse Ox 02/20/21 19:10 101 H 20 118/76 93 L 02/20/21 18:24 98 18 142/97 H 93 L 02/20/21 17:50 95 19 130/77 94 L 02/20/21 17:20 93 17 108/60 95 02/20/21 16:37 98 20 103/64 90 L 02/20/21 15:34 36.6 C 101 H 113/78 94 L Problem List Initiated/Reviewed/Updated: Yes Orders Last 24hrs: Active Orders 24 hr Category Date Time Status Admission Status [Patient Status] [ADT] Stat ADT 02/20/21 18:15 Active Ambulate [RC] ASDIRECTED Care 02/20/21 20:00 Ordered Cardiac Monitoring [RC] . DIRECTED Care 02/20/21 15:35 Active EKG Documentation Completion [RC] STAT Care 02/20/21 15:35 Active Oxygen Therapy [RC] PRN Care 02/20/21 20:00 Ordered RT Aerosol Therapy [RC] ASDIRECTED Care 02/20/21 20:04 Ordered VTE/DVT Education [RC] PER UNIT ROUTINE Care 02/20/21 20:00 Ordered Vital Signs [RC] Q4H Care 02/20/21 20:00 Ordered Heart Healthy Diet [DIET] Diet 02/20/21 Dinner Ordered TACROLIMUS (FK506), BLOOD [REF] Stat Lab 02/20/21 15:36 Ordered Albuterol/Ipratropium [DuoNeb 3.0-0.5 MG/3 ML] Med 02/20/21 20:00 Ordered 3 ml NEB Q4HRRT PRN Azithromycin [Zithromax] Med 02/21/21 09:00 Ordered 250 mg IV Q24H Azithromycin [Zithromax] 500 mg Med 02/20/21 20:15 Ordered Sodium Chloride 0.9% [Normal Saline (AdvBag)] 250 ml IV ONETIME Furosemide [Lasix] Med 02/21/21 09:00 Ordered 40 mg IVPUSH BID Heparin Sodium Med 02/20/21 20:00 Ordered 5,000 units SUBCUT Q8H Ondansetron [Zofran] Med 02/20/21 20:00 Ordered 4 mg IVPUSH Q4H PRN Sodium Chloride 0.9% [Saline Flush] Med 02/20/21 15:35 Active 10 ml FLUSH ASDIRECTED PRN Sodium Chloride 0.9% [Saline Flush] Med 02/20/21 15:35 Active 2.5 ml FLUSH ASDIRECTED PRN cefTRIAXone [Rocephin] Med 02/20/21 20:15 Ordered 1 gm IVPUSH Q24H Saline Lock Insert [OM.PC] Stat Oth 02/20/21 15:35 Ordered Medication Orders Albuterol/Ipratropium (Albuterol/Ipratropium 3.0-0.5 Mg/3 Ml Neb Soln) 3 ml NEB Q4HRRT PRN PRN Reason: Shortness Of Breath/wheezing Azithromycin (Azithromycin 500 Mg Vial) 250 mg IV Q24H JAMILA Ceftriaxone Sodium (Ceftriaxone 1 Gm Vial) 1 gm IVPUSH Q24H JAMILA Furosemide (Furosemide 40 Mg/4 Ml Vial) 40 mg IVPUSH BID JAMILA Heparin Sodium (Porcine) (Heparin Sodium 5,000 Units/Ml Vial) 5,000 units SUBCUT Q8H JAMILA Azithromycin 500 mg/ Sodium (Chloride) 250 mls @ 250 mls/hr IV ONETIME JAMILA Ondansetron HCl (Ondansetron 4 Mg/2 Ml Sdv) 4 mg IVPUSH Q4H PRN PRN Reason: Nausea/Vomiting Sodium Chloride (Sodium Chloride 0.9% 10 Ml Syringe) 10 ml FLUSH ASDIRECTED PRN PRN Reason: Keep Vein Open Last Admin: 02/20/21 15:47 Dose: 10 ml Documented by: ANNABELLE Sodium Chloride (Sodium Chloride 0.9% 2.5 Ml Syringe) 2.5 ml FLUSH ASDIRECTED PRN PRN Reason: Keep Vein Open Last Admin: 02/20/21 15:47 Dose: 2.5 ml Documented by: ANNABELLE Assessment/Plan Comment:: 55-year-old admitted for acute over chronic aspiratory failure most likely secondary to acute CHF exacerbation We will start patient on IV Lasix 40 mg twice daily starting tomorrow, already received Lasix in the ER today Strict ins and outs Fluid restrictions to 1.8 We will consider resuming details on Patient's CO2 is slightly on the higher side, possible component of COPD, will start patient on BiPAP for a couple of hours Continue oxygenation as needed to keep pulse ox more than 92% IV morphine for pain secondary to shingles Check tacrolimus level Patient's kidney function and liver function seem to be at baseline, we will continue to trend We will possibly touch base with patient's transplant team in the a.m. Resume home meds as appropriate Albuterol shortness of breath as patient is allergic to ipratropium
[2021-02-20] MEDS ORDERED: Azithromycin 500 MG in Sodium Chloride 0.9% 250 ML IV SCH (20:15)
[2021-02-20] MEDS ORDERED: cefTRIAXone 1 GM Vial IVPUSH SCH (20:15)
[2021-02-20] MEDS ORDERED: Albuterol 0.5% 5 MG/ML Neb Soln 20 ML Bottle NEB PRN (21:25)
[2021-02-20] MEDS: Heparin Sodium 5,000 Units/ML Vial SUBCUT SCH (21:34)
[2021-02-20] MEDS ORDERED: TACROLIMUS 0.75 MG PO SCH ×2 (21:45→23:51)
[2021-02-20] MEDS ORDERED: Cetirizine 10 MG Tab PO PRN (21:45)
[2021-02-20] MEDS: Morphine 2 MG/ML SYRINGE IVPUSH PRN (22:08)
[2021-02-20] MEDS ORDERED: Albuterol 0.083% 2.5 MG/3 ML Neb Soln ONE (23:10)
[2021-02-21] MEDS: cefTRIAXone 1 GM in Premix Bag 1 BAG IV SCH ×2 (00:19→22:53)
[2021-02-21 05:54] LABS: POTASSIUM,K 3.7 mmol/L (3.5-5.1)
[2021-02-21] MEDS: Heparin Sodium 5,000 Units/ML Vial SUBCUT SCH ×3 (06:12→20:41)
--- NOTE | 2021-02-21 08:44 | PCM.PN ---
- General Info Date of Service: 02/21/21 Admission Dx/Problem (Free Text): Admission Diagnosis/Problem Admission Diagnosis/Problem acute on chronic hypercapnic hypoxic respiratory failure, possible CHF diastolic exacerbation Subjective Update: This morning Maco appeared restless when evaluated. Complaining of significant amount of pain to left jaw and upper shoulder where shingles are present. Vesicles are healed and crusted over pain started a few days ago and has just slowly increased. Denies any chest pain. Reports shortness of breath even with the smallest amount of exertion. Continues to have peripheral edema. and daughter at bedside respiratory therapist also present are attempting to shave patient's face in order for BiPAP to have decreased leak. Functional Status: Reports: Tolerating Diet, Urinating. Denies: Pain Controlled, Ambulating - Review of Systems General: Reports: Weakness (Generalized) HEENT: Reports: Other (Left neck jaw and shoulder pain all related to shingles). Denies: Headaches, Sore Throat, Visual Changes Pulmonary: Reports: Shortness of Breath. Denies: Cough Cardiovascular: Reports: Dyspnea on Exertion, Edema. Denies: Chest Pain Gastrointestinal: Reports: No Symptoms. Denies: Abdominal Pain, Nausea, Vomiting Genitourinary: Reports: No Symptoms. Denies: Dysuria, Frequency Musculoskeletal: Reports: No Symptoms Skin: Reports: No Symptoms Neurological: Reports: No Symptoms Psychiatric: Reports: No Symptoms - Patient Data Vitals - Most Recent: Last Vital Signs Temp 97.8 F 02/21/21 07:07 Pulse 91 02/21/21 07:07 Resp 16 02/21/21 07:07 BP 114/64 02/21/21 07:07 Pulse Ox 100 02/21/21 07:07 Weight - Most Recent: 124.738 kg I&O - Last 24 Hours: Intake & Output 02/20/21 02/21/21 02/21/21 22:59 06:59 14:59 Intake Total 618 Output Total 500 Balance 118 Lab Results Last 24 Hours: Laboratory Results - last 24 hr 02/20/21 02/20/21 02/20/21 Range/Units 15:35 15:35 15:35 WBC 3.06 L (4.0-11.0) K/uL RBC 3.40 L (4.50-5.90) M/uL Hgb 10.8 L (13.0-17.0) g/dL Hct 33.9 L (38.0-50.0) % MCV 99.7 H (80.0-98.0) fL MCH 31.8 (27.0-32.0) pg MCHC 31.9 (31.0-37.0) g/dL RDW Std Deviation 65.1 H (28.0-62.0) fl RDW Coeff of Uday 18 H (11.0-15.0) % Plt Count 119 L (150-400) K/uL MPV 10.90 (7.40-12.00) fL Neut % (Auto) 72.3 (48.0-80.0) % Lymph % (Auto) 14.7 L (16.0-40.0) % [place] % (Auto) 11.4 (0.0-15.0) % Eos % (Auto) 1.6 (0.0-7.0) % Baso % (Auto) 0.0 (0.0-1.5) % Neut # (Auto) 2.2 (1.4-5.7) K/uL Lymph # (Auto) 0.5 L (0.6-2.4) K/uL [place] # (Auto) 0.4 (0.0-0.8) K/uL Eos # (Auto) 0.1 (0.0-0.7) K/uL Baso # (Auto) 0.0 (0.0-0.1) K/uL Nucleated RBC % 1.2 /100WBC Nucleated RBCs # 0 K/uL D-Dimer, Quantitative (0.0-0.50) mg/L FEU ABG pH (7.35-7.45) ABG pCO2 (35-45) mmHG ABG pO2 (80-105) mmHG ABG HCO3 (22-26) mEq/L ABG Total CO2 (23-27) mmol/L ABG Base Excess (-2.0-3.0) VBG pH (7.31-7.41) VBG pCO2 (41-51) mmHG VBG pO2 mmHG VBG HCO3 (23-28) mEq/L VBG Total CO2 (24-29) mmol/L VBG Base Excess (-2.0-3.0) Sodium 139 (136-148) mmol/L Potassium 4.3 (3.5-5.1) mmol/L Chloride 95 L (98-107) mmol/L Carbon Dioxide 42.2 H (21.0-32.0) mmol/L BUN 73 H (7.0-18.0) mg/dL Creatinine 1.9 H (0.8-1.3) mg/dL Est Cr Clr Drug Dosing 41.50 mL/min Estimated GFR (MDRD) 36.7 ml/min Glucose 119 H (74-106) mg/dL Calcium 9.4 (8.5-10.1) mg/dL Phosphorus (2.6-4.7) mg/dL Magnesium (1.8-2.4) mg/dL Total Bilirubin 0.5 (0.2-1.0) mg/dL AST 20 (15-37) IU/L ALT 19 (14-63) IU/L Alkaline Phosphatase 66 (46-116) U/L Troponin I < 0.050 (0.000-0.056) ng/mL B-Natriuretic Peptide 15 (<100) PG/ML Total Protein 7.5 (6.4-8.2) g/dL Albumin 3.3 L (3.4-5.0) g/dL Globulin 4.2 H (2.6-4.0) g/dL Albumin/Globulin Ratio 0.8 L (0.9-1.6) Urine Color Urine Appearance Urine pH (5.0-8.0) Ur Specific [place] (1.001-1.035) Urine Protein (NEGATIVE) mg/dL Urine Glucose (UA) (NEGATIVE) mg/dL Urine Ketones (NEGATIVE) mg/dL Urine Occult Blood (NEGATIVE) Urine Nitrite (NEGATIVE) Urine Bilirubin (NEGATIVE) Urine Urobilinogen (<2.0) EU/dL Ur Leukocyte Esterase (NEGATIVE) SARS-CoV-2 RNA (ISAIAH) (NEGATIVE) 02/20/21 02/20/21 02/20/21 Range/Units 15:35 16:06 17:00 WBC (4.0-11.0) K/uL RBC (4.50-5.90) M/uL Hgb (13.0-17.0) g/dL Hct (38.0-50.0) % MCV (80.0-98.0) fL MCH (27.0-32.0) pg MCHC (31.0-37.0) g/dL RDW Std Deviation (28.0-62.0) fl RDW Coeff of Uday (11.0-15.0) % Plt Count (150-400) K/uL MPV (7.40-12.00) fL Neut % (Auto) (48.0-80.0) % Lymph % (Auto) (16.0-40.0) % [place] % (Auto) (0.0-15.0) % Eos % (Auto) (0.0-7.0) % Baso % (Auto) (0.0-1.5) % Neut # (Auto) (1.4-5.7) K/uL Lymph # (Auto) (0.6-2.4) K/uL [place] # (Auto) (0.0-0.8) K/uL Eos # (Auto) (0.0-0.7) K/uL Baso # (Auto) (0.0-0.1) K/uL Nucleated RBC % /100WBC Nucleated RBCs # K/uL D-Dimer, Quantitative 0.39 (0.0-0.50) mg/L FEU ABG pH (7.35-7.45) ABG pCO2 (35-45) mmHG ABG pO2 (80-105) mmHG ABG HCO3 (22-26) mEq/L ABG Total CO2 (23-27) mmol/L ABG Base Excess (-2.0-3.0) VBG pH 7.40 (7.31-7.41) VBG pCO2 74 H (41-51) mmHG VBG pO2 37 mmHG VBG HCO3 46 H (23-28) mEq/L VBG Total CO2 43 H (24-29) mmol/L VBG Base Excess 18.0 H (-2.0-3.0) Sodium (136-148) mmol/L Potassium (3.5-5.1) mmol/L Chloride (98-107) mmol/L Carbon Dioxide (21.0-32.0) mmol/L BUN (7.0-18.0) mg/dL Creatinine (0.8-1.3) mg/dL Est Cr Clr Drug Dosing mL/min Estimated GFR (MDRD) ml/min Glucose (74-106) mg/dL Calcium (8.5-10.1) mg/dL Phosphorus (2.6-4.7) mg/dL Magnesium (1.8-2.4) mg/dL Total Bilirubin (0.2-1.0) mg/dL AST (15-37) IU/L ALT (14-63) IU/L Alkaline Phosphatase (46-116) U/L Troponin I (0.000-0.056) ng/mL B-Natriuretic Peptide (<100) PG/ML Total Protein (6.4-8.2) g/dL Albumin (3.4-5.0) g/dL Globulin (2.6-4.0) g/dL Albumin/Globulin Ratio (0.9-1.6) Urine Color Urine Appearance Urine pH (5.0-8.0) Ur Specific [place] (1.001-1.035) Urine Protein (NEGATIVE) mg/dL Urine Glucose (UA) (NEGATIVE) mg/dL Urine Ketones (NEGATIVE) mg/dL Urine Occult Blood (NEGATIVE) Urine Nitrite (NEGATIVE) Urine Bilirubin (NEGATIVE) Urine Urobilinogen (<2.0) EU/dL Ur Leukocyte Esterase (NEGATIVE) SARS-CoV-2 RNA (ISAIAH) NEGATIVE (NEGATIVE) 02/20/21 02/21/21 02/21/21 Range/Units 18:15 05:17 05:17 WBC 2.81 L (4.0-11.0) K/uL RBC 3.48 L (4.50-5.90) M/uL Hgb 10.8 L (13.0-17.0) g/dL Hct 34.7 L (38.0-50.0) % MCV 99.7 H (80.0-98.0) fL MCH 31.0 (27.0-32.0) pg MCHC 31.1 (31.0-37.0) g/dL RDW Std Deviation 65.4 H (28.0-62.0) fl RDW Coeff of Uday 18 H (11.0-15.0) % Plt Count 125 L (150-400) K/uL MPV 10.70 (7.40-12.00) fL Neut % (Auto) 68.4 (48.0-80.0) % Lymph % (Auto) 19.2 (16.0-40.0) % [place] % (Auto) 11.0 (0.0-15.0) % Eos % (Auto) 1.4 (0.0-7.0) % Baso % (Auto) 0.0 (0.0-1.5) % Neut # (Auto) 1.9 (1.4-5.7) K/uL Lymph # (Auto) 0.5 L (0.6-2.4) K/uL [place] # (Auto) 0.3 (0.0-0.8) K/uL Eos # (Auto) 0.0 (0.0-0.7) K/uL Baso # (Auto) 0.0 (0.0-0.1) K/uL Nucleated RBC % 0.6 /100WBC Nucleated RBCs # 0 K/uL D-Dimer, Quantitative (0.0-0.50) mg/L FEU ABG pH (7.35-7.45) ABG pCO2 (35-45) mmHG ABG pO2 (80-105) mmHG ABG HCO3 (22-26) mEq/L ABG Total CO2 (23-27) mmol/L ABG Base Excess (-2.0-3.0) VBG pH (7.31-7.41) VBG pCO2 (41-51) mmHG VBG pO2 mmHG VBG HCO3 (23-28) mEq/L VBG Total CO2 (24-29) mmol/L VBG Base Excess (-2.0-3.0) Sodium 141 (136-148) mmol/L Potassium 3.7 (3.5-5.1) mmol/L Chloride 95 L (98-107) mmol/L Carbon Dioxide 44.0 H (21.0-32.0) mmol/L BUN 69 H (7.0-18.0) mg/dL Creatinine 1.9 H (0.8-1.3) mg/dL Est Cr Clr Drug Dosing 41.50 mL/min Estimated GFR (MDRD) 36.7 ml/min Glucose 112 H (74-106) mg/dL Calcium 8.9 (8.5-10.1) mg/dL Phosphorus 4.9 H (2.6-4.7) mg/dL Magnesium 2.2 (1.8-2.4) mg/dL Total Bilirubin (0.2-1.0) mg/dL AST (15-37) IU/L ALT (14-63) IU/L Alkaline Phosphatase (46-116) U/L Troponin I (0.000-0.056) ng/mL B-Natriuretic Peptide (<100) PG/ML Total Protein (6.4-8.2) g/dL Albumin (3.4-5.0) g/dL Globulin (2.6-4.0) g/dL Albumin/Globulin Ratio (0.9-1.6) Urine Color YELLOW Urine Appearance CLEAR Urine pH 5.0 (5.0-8.0) Ur Specific [place] 1.020 (1.001-1.035) Urine Protein NEGATIVE (NEGATIVE) mg/dL Urine Glucose (UA) NEGATIVE (NEGATIVE) mg/dL Urine Ketones NEGATIVE (NEGATIVE) mg/dL Urine Occult Blood NEGATIVE (NEGATIVE) Urine Nitrite NEGATIVE (NEGATIVE) Urine Bilirubin NEGATIVE (NEGATIVE) Urine Urobilinogen 0.2 (<2.0) EU/dL Ur Leukocyte Esterase NEGATIVE (NEGATIVE) SARS-CoV-2 RNA (ISAIAH) (NEGATIVE) 02/21/21 02/21/21 Range/Units 05:17 08:33 WBC (4.0-11.0) K/uL RBC (4.50-5.90) M/uL Hgb (13.0-17.0) g/dL Hct (38.0-50.0) % MCV (80.0-98.0) fL MCH (27.0-32.0) pg MCHC (31.0-37.0) g/dL RDW Std Deviation (28.0-62.0) fl RDW Coeff of Uday (11.0-15.0) % Plt Count (150-400) K/uL MPV (7.40-12.00) fL Neut % (Auto) (48.0-80.0) % Lymph % (Auto) (16.0-40.0) % [place] % (Auto) (0.0-15.0) % Eos % (Auto) (0.0-7.0) % Baso % (Auto) (0.0-1.5) % Neut # (Auto) (1.4-5.7) K/uL Lymph # (Auto) (0.6-2.4) K/uL [place] # (Auto) (0.0-0.8) K/uL Eos # (Auto) (0.0-0.7) K/uL Baso # (Auto) (0.0-0.1) K/uL Nucleated RBC % /100WBC Nucleated RBCs # K/uL D-Dimer, Quantitative (0.0-0.50) mg/L FEU ABG pH 7.41 (7.35-7.45) ABG pCO2 72 H (35-45) mmHG ABG pO2 98 (80-105) mmHG ABG HCO3 46 H (22-26) mEq/L ABG Total CO2 42.8 H (23-27) mmol/L ABG Base Excess 18.3 H (-2.0-3.0) VBG pH 7.32 (7.31-7.41) VBG pCO2 93 H (41-51) mmHG VBG pO2 31 mmHG VBG HCO3 48 H (23-28) mEq/L VBG Total CO2 45 H (24-29) mmol/L VBG Base Excess 17.5 H (-2.0-3.0) Sodium (136-148) mmol/L Potassium (3.5-5.1) mmol/L Chloride (98-107) mmol/L Carbon Dioxide (21.0-32.0) mmol/L BUN (7.0-18.0) mg/dL Creatinine (0.8-1.3) mg/dL Est Cr Clr Drug Dosing mL/min Estimated GFR (MDRD) ml/min Glucose (74-106) mg/dL Calcium (8.5-10.1) mg/dL Phosphorus (2.6-4.7) mg/dL Magnesium (1.8-2.4) mg/dL Total Bilirubin (0.2-1.0) mg/dL AST (15-37) IU/L ALT (14-63) IU/L Alkaline Phosphatase (46-116) U/L Troponin I (0.000-0.056) ng/mL B-Natriuretic Peptide (<100) PG/ML Total Protein (6.4-8.2) g/dL Albumin (3.4-5.0) g/dL Globulin (2.6-4.0) g/dL Albumin/Globulin Ratio (0.9-1.6) Urine Color Urine Appearance Urine pH (5.0-8.0) Ur Specific [place] (1.001-1.035) Urine Protein (NEGATIVE) mg/dL Urine Glucose (UA) (NEGATIVE) mg/dL Urine Ketones (NEGATIVE) mg/dL Urine Occult Blood (NEGATIVE) Urine Nitrite (NEGATIVE) Urine Bilirubin (NEGATIVE) Urine Urobilinogen (<2.0) EU/dL Ur Leukocyte Esterase (NEGATIVE) SARS-CoV-2 RNA (ISAIAH) (NEGATIVE) Med Orders - Current: Current Medications Albuterol (Albuterol 0.083% 2.5 Mg/3 Ml Neb Soln) 2.5 mg NEB Q4HRRT PRN PRN Reason: Shortness of Breath Cetirizine HCl (Cetirizine 10 Mg Tab) 10 mg PO DAILY PRN PRN Reason: Allergies Furosemide (Furosemide 40 Mg/4 Ml Vial) 40 mg IVPUSH BID [facility] Heparin Sodium (Porcine) (Heparin Sodium 5,000 Units/Ml Vial) 5,000 units SUBCUT Q8H [facility] Last Admin: 02/21/21 06:12 Dose: Not Given Documented by: Ceftriaxone Sodium/Dextrose 1 (gm/ Premix) 50 mls @ 100 mls/hr IV Q24H [facility] Last Admin: 02/21/21 00:19 Dose: 100 mls/hr Documented by: Azithromycin 500 mg/ Sodium (Chloride) 250 mls @ 250 mls/hr IV Q24H [facility] Morphine Sulfate (Morphine 2 Mg/Ml Syringe) 1 mg IVPUSH Q4H PRN PRN Reason: Pain Last Admin: 02/20/21 22:08 Dose: 1 mg Documented by: Mycophenolate Mofetil (Mycophenolate Mofetil 250 Mg Cap Own Med) 250 mg PO BID [facility] Ondansetron HCl (Ondansetron 4 Mg/2 Ml Sdv) 4 mg IVPUSH Q4H PRN PRN Reason: Nausea/Vomiting Polyethylene Glycol (Polyethylene Glycol 3350 Powder 17 Gm Packet) 17 gm PO DAILY PRN PRN Reason: Constipation Sodium Chloride (Sodium Chloride 0.9% 10 Ml Syringe) 10 ml FLUSH ASDIRECTED PRN PRN Reason: Keep Vein Open Last Admin: 02/20/21 15:47 Dose: 10 ml Documented by: Sodium Chloride (Sodium Chloride 0.9% 2.5 Ml Syringe) 2.5 ml FLUSH ASDIRECTED P RN PRN Reason: Keep Vein Open Last Admin: 02/20/21 15:47 Dose: 2.5 ml Documented by: Tacrolimus (Tacrolimus 0.75 Mg CapOwn Med) 0 mg PO DAILY [facility] Valacyclovir HCl (Valacyclovir 500 Mg Tab) 1,000 mg PO DAILY [facility] Discontinued Medications Albuterol (Albuterol 0.083% 2.5 Mg/3 Ml Neb Soln) Confirm Administered Dose 2.5 mg .ROUTE .STK-MED ONE Stop: 02/20/21 23:11 Last Admin: 02/20/21 23:19 Dose: 2.5 mg Documented by: Albuterol/Ipratropium (Albuterol/Ipratropium 3.0-0.5 Mg/3 Ml Neb Soln) 3 ml NEB Q4HRRT PRN PRN Reason: Shortness Of Breath/wheezing Azithromycin (Azithromycin 500 Mg Vial) 250 mg IV Q24H [facility] Last Admin: 02/20/21 22:40 Dose: Not Given Documented by: Ceftriaxone Sodium (Ceftriaxone 1 Gm Vial) 1 gm IVPUSH Q24H [facility] Last Admin: 02/20/21 22:54 Dose: Not Given Documented by: Furosemide (Furosemide 40 Mg/4 Ml Vial) 20 mg IVPUSH NOW ONE Stop: 02/20/21 16:25 Last Admin: 02/20/21 16:54 Dose: 20 mg Documented by: Azithromycin 500 mg/ Sodium (Chloride) 250 mls @ 250 mls/hr IV ONETIME [facility] Last Admin: 02/20/21 22:10 Dose: 250 mls/hr Documented by: Morphine Sulfate (Morphine 2 Mg/Ml Syringe) 2 mg IVPUSH ONETIME ONE Stop: 02/20/21 18:14 Last Admin: 02/20/21 18:18 Dose: 2 mg Documented by: Tacrolimus (Tacrolimus 0.75 Mg CapOwn Med) 0 mg PO DAILY [facility] Last Admin: 02/21/21 02:18 Dose: Not Given Documented by: - Exam Quality Assessment: Supplemental Oxygen (BiPAP in place), DVT Prophylaxis (Heparin) General: Alert, Oriented, Cooperative, No Acute Distress Lungs: Decreased Breath Sounds, Crackles. No: Normal Respiratory Effort (Dyspne a) Cardiovascular: Regular Rate, Regular Rhythm GI/Abdominal Exam: Normal Bowel Sounds, Soft, Non-Tender, Other (Obese abdomen limits exam) Extremities: Normal Inspection, Normal Range of Motion, Pedal Edema (+3 pitting edema extending from thighs distally to feet skin is taut and shiny no erythema or signs of infection noted) Neurological: No New Focal Deficit Psy/Mental Status: Alert, Anxious, Agitated - Patient Data Lab Results Last 24 hrs: Laboratory Results - last 24 hr 02/20/21 02/20/21 02/20/21 Range/Units 15:35 15:35 15:35 WBC 3.06 L (4.0-11.0) K/uL RBC 3.40 L (4.50-5.90) M/uL Hgb 10.8 L (13.0-17.0) g/dL Hct 33.9 L (38.0-50.0) % MCV 99.7 H (80.0-98.0) fL MCH 31.8 (27.0-32.0) pg MCHC 31.9 (31.0-37.0) g/dL RDW Std Deviation 65.1 H (28.0-62.0) fl RDW Coeff of Uday 18 H (11.0-15.0) % Plt Count 119 L (150-400) K/uL MPV 10.90 (7.40-12.00) fL Neut % (Auto) 72.3 (48.0-80.0) % Lymph % (Auto) 14.7 L (16.0-40.0) % [place] % (Auto) 11.4 (0.0-15.0) % Eos % (Auto) 1.6 (0.0-7.0) % Baso % (Auto) 0.0 (0.0-1.5) % Neut # (Auto) 2.2 (1.4-5.7) K/uL Lymph # (Auto) 0.5 L (0.6-2.4) K/uL [place] # (Auto) 0.4 (0.0-0.8) K/uL Eos # (Auto) 0.1 (0.0-0.7) K/uL Baso # (Auto) 0.0 (0.0-0.1) K/uL Nucleated RBC % 1.2 /100WBC Nucleated RBCs # 0 K/uL D-Dimer, Quantitative (0.0-0.50) mg/L FEU ABG pH (7.35-7.45) ABG pCO2 (35-45) mmHG ABG pO2 (80-105) mmHG ABG HCO3 (22-26) mEq/L ABG Total CO2 (23-27) mmol/L ABG Base Excess (-2.0-3.0) VBG pH (7.31-7.41) VBG pCO2 (41-51) mmHG VBG pO2 mmHG VBG HCO3 (23-28) mEq/L VBG Total CO2 (24-29) mmol/L VBG Base Excess (-2.0-3.0) Sodium 139 (136-148) mmol/L Potassium 4.3 (3.5-5.1) mmol/L Chloride 95 L (98-107) mmol/L Carbon Dioxide 42.2 H (21.0-32.0) mmol/L BUN 73 H (7.0-18.0) mg/dL Creatinine 1.9 H (0.8-1.3) mg/dL Est Cr Clr Drug Dosing 41.50 mL/min Estimated GFR (MDRD) 36.7 ml/min Glucose 119 H (74-106) mg/dL Calcium 9.4 (8.5-10.1) mg/dL Phosphorus (2.6-4.7) mg/dL Magnesium (1.8-2.4) mg/dL Total Bilirubin 0.5 (0.2-1.0) mg/dL AST 20 (15-37) IU/L ALT 19 (14-63) IU/L Alkaline Phosphatase 66 (46-116) U/L Troponin I < 0.050 (0.000-0.056) ng/mL B-Natriuretic Peptide 15 (<100) PG/ML Total Protein 7.5 (6.4-8.2) g/dL Albumin 3.3 L (3.4-5.0) g/dL Globulin 4.2 H (2.6-4.0) g/dL Albumin/Globulin Ratio 0.8 L (0.9-1.6) Urine Color Urine Appearance Urine pH (5.0-8.0) Ur Specific [place] (1.001-1.035) Urine Protein (NEGATIVE) mg/dL Urine Glucose (UA) (NEGATIVE) mg/dL Urine Ketones (NEGATIVE) mg/dL Urine Occult Blood (NEGATIVE) Urine Nitrite (NEGATIVE) Urine Bilirubin (NEGATIVE) Urine Urobilinogen (<2.0) EU/dL Ur Leukocyte Esterase (NEGATIVE) SARS-CoV-2 RNA (ISAIAH) (NEGATIVE) 02/20/21 02/20/21 02/20/21 Range/Units 15:35 16:06 17:00 WBC (4.0-11.0) K/uL RBC (4.50-5.90) M/uL Hgb (13.0-17.0) g/dL Hct (38.0-50.0) % MCV (80.0-98.0) fL MCH (27.0-32.0) pg MCHC (31.0-37.0) g/dL RDW Std Deviation (28.0-62.0) fl RDW Coeff of Uday (11.0-15.0) % Plt Count (150-400) K/uL MPV (7.40-12.00) fL Neut % (Auto) (48.0-80.0) % Lymph % (Auto) (16.0-40.0) % [place] % (Auto) (0.0-15.0) % Eos % (Auto) (0.0-7.0) % Baso % (Auto) (0.0-1.5) % Neut # (Auto) (1.4-5.7) K/uL Lymph # (Auto) (0.6-2.4) K/uL [place] # (Auto) (0.0-0.8) K/uL Eos # (Auto) (0.0-0.7) K/uL Baso # (Auto) (0.0-0.1) K/uL Nucleated RBC % /100WBC Nucleated RBCs # K/uL D-Dimer, Quantitative 0.39 (0.0-0.50) mg/L FEU ABG pH (7.35-7.45) ABG pCO2 (35-45) mmHG ABG pO2 (80-105) mmHG ABG HCO3 (22-26) mEq/L ABG Total CO2 (23-27) mmol/L ABG Base Excess (-2.0-3.0) VBG pH 7.40 (7.31-7.41) VBG pCO2 74 H (41-51) mmHG VBG pO2 37 mmHG VBG HCO3 46 H (23-28) mEq/L VBG Total CO2 43 H (24-29) mmol/L VBG Base Excess 18.0 H (-2.0-3.0) Sodium (136-148) mmol/L Potassium (3.5-5.1) mmol/L Chloride (98-107) mmol/L Carbon Dioxide (21.0-32.0) mmol/L BUN (7.0-18.0) mg/dL Creatinine (0.8-1.3) mg/dL Est Cr Clr Drug Dosing mL/min Estimated GFR (MDRD) ml/min Glucose (74-106) mg/dL Calcium (8.5-10.1) mg/dL Phosphorus (2.6-4.7) mg/dL Magnesium (1.8-2.4) mg/dL Total Bilirubin (0.2-1.0) mg/dL AST (15-37) IU/L ALT (14-63) IU/L Alkaline Phosphatase (46-116) U/L Troponin I (0.000-0.056) ng/mL B-Natriuretic Peptide (<100) PG/ML Total Protein (6.4-8.2) g/dL Albumin (3.4-5.0) g/dL Globulin (2.6-4.0) g/dL Albumin/Globulin Ratio (0.9-1.6) Urine Color Urine Appearance Urine pH (5.0-8.0) Ur Specific [place] (1.001-1.035) Urine Protein (NEGATIVE) mg/dL Urine Glucose (UA) (NEGATIVE) mg/dL Urine Ketones (NEGATIVE) mg/dL Urine Occult Blood (NEGATIVE) Urine Nitrite (NEGATIVE) Urine Bilirubin (NEGATIVE) Urine Urobilinogen (<2.0) EU/dL Ur Leukocyte Esterase (NEGATIVE) SARS-CoV-2 RNA (ISAIAH) NEGATIVE (NEGATIVE) 02/20/21 02/21/21 02/21/21 Range/Units 18:15 05:17 05:17 WBC 2.81 L (4.0-11.0) K/uL RBC 3.48 L (4.50-5.90) M/uL Hgb 10.8 L (13.0-17.0) g/dL Hct 34.7 L (38.0-50.0) % MCV 99.7 H (80.0-98.0) fL MCH 31.0 (27.0-32.0) pg MCHC 31.1 (31.0-37.0) g/dL RDW Std Deviation 65.4 H (28.0-62.0) fl RDW Coeff of Uday 18 H (11.0-15.0) % Plt Count 125 L (150-400) K/uL MPV 10.70 (7.40-12.00) fL Neut % (Auto) 68.4 (48.0-80.0) % Lymph % (Auto) 19.2 (16.0-40.0) % [place] % (Auto) 11.0 (0.0-15.0) % Eos % (Auto) 1.4 (0.0-7.0) % Baso % (Auto) 0.0 (0.0-1.5) % Neut # (Auto) 1.9 (1.4-5.7) K/uL Lymph # (Auto) 0.5 L (0.6-2.4) K/uL [place] # (Auto) 0.3 (0.0-0.8) K/uL Eos # (Auto) 0.0 (0.0-0.7) K/uL Baso # (Auto) 0.0 (0.0-0.1) K/uL Nucleated RBC % 0.6 /100WBC Nucleated RBCs # 0 K/uL D-Dimer, Quantitative (0.0-0.50) mg/L FEU ABG pH (7.35-7.45) ABG pCO2 (35-45) mmHG ABG pO2 (80-105) mmHG ABG HCO3 (22-26) mEq/L ABG Total CO2 (23-27) mmol/L ABG Base Excess (-2.0-3.0) VBG pH (7.31-7.41) VBG pCO2 (41-51) mmHG VBG pO2 mmHG VBG HCO3 (23-28) mEq/L VBG Total CO2 (24-29) mmol/L VBG Base Excess (-2.0-3.0) Sodium 141 (136-148) mmol/L Potassium 3.7 (3.5-5.1) mmol/L Chloride 95 L (98-107) mmol/L Carbon Dioxide 44.0 H (21.0-32.0) mmol/L BUN 69 H (7.0-18.0) mg/dL Creatinine 1.9 H (0.8-1.3) mg/dL Est Cr Clr Drug Dosing 41.50 mL/min Estimated GFR (MDRD) 36.7 ml/min Glucose 112 H (74-106) mg/dL Calcium 8.9 (8.5-10.1) mg/dL Phosphorus 4.9 H (2.6-4.7) mg/dL Magnesium 2.2 (1.8-2.4) mg/dL Total Bilirubin (0.2-1.0) mg/dL AST (15-37) IU/L ALT (14-63) IU/L Alkaline Phosphatase (46-116) U/L Troponin I (0.000-0.056) ng/mL B-Natriuretic Peptide (<100) PG/ML Total Protein (6.4-8.2) g/dL Albumin (3.4-5.0) g/dL Globulin (2.6-4.0) g/dL Albumin/Globulin Ratio (0.9-1.6) Urine Color YELLOW Urine Appearance CLEAR Urine pH 5.0 (5.0-8.0) Ur Specific [place] 1.020 (1.001-1.035) Urine Protein NEGATIVE (NEGATIVE) mg/dL Urine Glucose (UA) NEGATIVE (NEGATIVE) mg/dL Urine Ketones NEGATIVE (NEGATIVE) mg/dL Urine Occult Blood NEGATIVE (NEGATIVE) Urine Nitrite NEGATIVE (NEGATIVE) Urine Bilirubin NEGATIVE (NEGATIVE) Urine Urobilinogen 0.2 (<2.0) EU/dL Ur Leukocyte Esterase NEGATIVE (NEGATIVE) SARS-CoV-2 RNA (ISAIAH) (NEGATIVE) 02/21/21 02/21/21 Range/Units 05:17 08:33 WBC (4.0-11.0) K/uL RBC (4.50-5.90) M/uL Hgb (13.0-17.0) g/dL Hct (38.0-50.0) % MCV (80.0-98.0) fL MCH (27.0-32.0) pg MCHC (31.0-37.0) g/dL RDW Std Deviation (28.0-62.0) fl RDW Coeff of Uday (11.0-15.0) % Plt Count (150-400) K/uL MPV (7.40-12.00) fL Neut % (Auto) (48.0-80.0) % Lymph % (Auto) (16.0-40.0) % [place] % (Auto) (0.0-15.0) % Eos % (Auto) (0.0-7.0) % Baso % (Auto) (0.0-1.5) % Neut # (Auto) (1.4-5.7) K/uL Lymph # (Auto) (0.6-2.4) K/uL [place] # (Auto) (0.0-0.8) K/uL Eos # (Auto) (0.0-0.7) K/uL Baso # (Auto) (0.0-0.1) K/uL Nucleated RBC % /100WBC Nucleated RBCs # K/uL D-Dimer, Quantitative (0.0-0.50) mg/L FEU ABG pH 7.41 (7.35-7.45) ABG pCO2 72 H (35-45) mmHG ABG pO2 98 (80-105) mmHG ABG HCO3 46 H (22-26) mEq/L ABG Total CO2 42.8 H (23-27) mmol/L ABG Base Excess 18.3 H (-2.0-3.0) VBG pH 7.32 (7.31-7.41) VBG pCO2 93 H (41-51) mmHG VBG pO2 31 mmHG VBG HCO3 48 H (23-28) mEq/L VBG Total CO2 45 H (24-29) mmol/L VBG Base Excess 17.5 H (-2.0-3.0) Sodium (136-148) mmol/L Potassium (3.5-5.1) mmol/L Chloride (98-107) mmol/L Carbon Dioxide (21.0-32.0) mmol/L BUN (7.0-18.0) mg/dL Creatinine (0.8-1.3) mg/dL Est Cr Clr Drug Dosing mL/min Estimated GFR (MDRD) ml/min Glucose (74-106) mg/dL Calcium (8.5-10.1) mg/dL Phosphorus (2.6-4.7) mg/dL Magnesium (1.8-2.4) mg/dL Total Bilirubin (0.2-1.0) mg/dL AST (15-37) IU/L ALT (14-63) IU/L Alkaline Phosphatase (46-116) U/L Troponin I (0.000-0.056) ng/mL B-Natriuretic Peptide (<100) PG/ML Total Protein (6.4-8.2) g/dL Albumin (3.4-5.0) g/dL Globulin (2.6-4.0) g/dL Albumin/Globulin Ratio (0.9-1.6) Urine Color Urine Appearance Urine pH (5.0-8.0) Ur Specific [place] (1.001-1.035) Urine Protein (NEGATIVE) mg/dL Urine Glucose (UA) (NEGATIVE) mg/dL Urine Ketones (NEGATIVE) mg/dL Urine Occult Blood (NEGATIVE) Urine Nitrite (NEGATIVE) Urine Bilirubin (NEGATIVE) Urine Urobilinogen (<2.0) EU/dL Ur Leukocyte Esterase (NEGATIVE) SARS-CoV-2 RNA (ISAIAH) (NEGATIVE) Result Diagrams: 02/21/21 05:17 02/21/21 05:17 Sepsis Event Note - Evaluation Sepsis Screening Result: Severe Sepsis Risk - Focused Exam Vital Signs: Vital Signs Temp Pulse Resp BP Pulse Ox 02/21/21 07:07 97.8 F 91 16 114/64 100 02/21/21 05:00 97.4 F 101 H 34 H 116/78 100 02/21/21 04:00 97.6 F 108 H 28 H 130/87 91 L 02/21/21 00:00 97.8 F 100 18 120/63 96 02/20/21 21:25 97.7 F 105 H 20 122/67 91 L - Problem List & Annotations (1) Acute on chronic respiratory failure with hypoxia and hypercapnia SNOMED Code(s): 30173882182186 Code(s): J96.21 - ACUTE AND CHRONIC RESPIRATORY FAILURE WITH HYPOXIA; J96.22 - ACUTE AND CHRONIC RESPIRATORY FAILURE WITH HYPERCAPNIA Status: Acute Current Visit: Yes (2) Encephalopathy SNOMED Code(s): 64995737 Code(s): G93.40 - ENCEPHALOPATHY, UNSPECIFIED Status: Acute Current Visit: No (3) Pulmonary edema SNOMED Code(s): 13180730 Code(s): J81.1 - CHRONIC PULMONARY EDEMA Status: Acute Current Visit: Yes Qualifiers: Chronicity: acute Qualified Code(s): J81.0 - Acute pulmonary edema (4) Dyspnea SNOMED Code(s): 028560154 Code(s): R06.00 - DYSPNEA, UNSPECIFIED Status: Acute Current Visit: Yes Qualifiers: Dyspnea type: dyspnea on exertion Qualified Code(s): R06.00 - Dyspnea, unspecified (5) Bilateral lower extremity edema SNOMED Code(s): 659998613, 18842543, 619236620 Code(s): R60.0 - LOCALIZED EDEMA Status: Acute Current Visit: Yes (6) Shingles SNOMED Code(s): 0278067 Code(s): B02.9 - ZOSTER WITHOUT COMPLICATIONS Status: Acute Current Visit: Yes Qualifiers: Herpes zoster complications: without complications Qualified Code(s): B02.9 - Zoster without complications (7) Post herpetic neuralgia SNOMED Code(s): 8808276 Code(s): B02.29 - OTHER POSTHERPETIC NERVOUS SYSTEM INVOLVEMENT Status: Acute Current Visit: No (8) Diastolic heart failure SNOMED Code(s): 852244678 Code(s): I50.30 - UNSPECIFIED DIASTOLIC (CONGESTIVE) HEART FAILURE Status: Acute Current Visit: Yes Qualifiers: Heart failure chronicity: acute on chronic Qualified Code(s): I50.33 - Acute on chronic diastolic (congestive) heart failure (9) Immunosuppression SNOMED Code(s): 28514220 Code(s): D84.9 - IMMUNODEFICIENCY, UNSPECIFIED Status: Chronic Current Visit: Yes (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 Status: Chronic Current Visit: Yes (11) Liver transplant recipient SNOMED Code(s): 672453498 Code(s): Z94.4 - LIVER TRANSPLANT STATUS Status: Chronic Current Visit: Yes (12) S/P TIPS (transjugular intrahepatic portosystemic shunt) SNOMED Code(s): 529046952, 076380800 Code(s): Z95.828 - PRESENCE OF OTHER VASCULAR IMPLANTS AND GRAFTS Status: Chronic Current Visit: Yes (13) Depression SNOMED Code(s): 18131127 Code(s): F32.9 - MAJOR DEPRESSIVE DISORDER, SINGLE EPISODE, UNSPECIFIED Status: Chronic Current Visit: Yes Qualifiers: Depression Type: unspecified Qualified Code(s): F32.9 - Major depressive disorder, single episode, unspecified (14) Obesity SNOMED Code(s): 663470216, 566419658 Code(s): E66.9 - OBESITY, UNSPECIFIED Status: Chronic Current Visit: Yes (15) CKD (chronic kidney disease) SNOMED Code(s): 288830134 Code(s): N18.9 - CHRONIC KIDNEY DISEASE, UNSPECIFIED Status: Chronic Current Visit: Yes (16) Asthma SNOMED Code(s): 062033695 Code(s): J45.909 - UNSPECIFIED ASTHMA, UNCOMPLICATED Status: Chronic Current Visit: Yes Qualifiers: Asthma severity: mild Asthma persistence: intermittent (17) Oxygen dependent SNOMED Code(s): 661460879438 Code(s): Z99.81 - DEPENDENCE ON SUPPLEMENTAL OXYGEN Status: Chronic Current Visit: Yes (18) Esophageal varices SNOMED Code(s): 60543530 Code(s): I85.00 - ESOPHAGEAL VARICES WITHOUT BLEEDING Status: Chronic Current Visit: No Onset Date: 09/03/14 - Problem List Review Problem List Initiated/Reviewed/Updated: Yes - My Orders Last 24 Hours: My Active Orders 02/21/21 08:26 Transfer Patient (Change bed) [ADT] Routine 02/21/21 08:27 Patient Status [ADT] Stat 02/21/21 08:43 Urinary Catheter Assessment [RC] ASDIRECTED 02/21/21 08:44 Acetaminophen [Tylenol Extra Strength] 1,000 mg PO ONETIME ONE Resuscitation Status Routine 02/21/21 08:45 Insert Burrows Catheter [Insert Urinary Catheter] [OM.PC] Q24H - Plan Plan:: 55-year-old admitted for acute on chronic hypercapnic hypoxic respiratory failure most likely secondary to acute diastolic CHF exacerbation 1. Acute on chronic hypercapnic hypoxic respiratory failure -ABG obtained this morning shows PCO2 73 -Discussed case at length with Dr. Hull, eICU appreciate his assistance in evaluation of patient -We will trial off BiPAP currently as hypercapnia is likely near baseline. Altered mental status/encephalopathy likely secondary to narcotics and gabapentin use at home. Mentation has improved with these medications being held -Continue nasal cannula 3 to 4 L per home dose at this time -Respiratory therapy to help monitor consider BiPAP at bedtime if patient tolerates otherwise continue nasal cannula. -Albuterol as needed 2. Acute on chronic diastolic CHF exacerbation -Echo pending -Continue Lasix 40 mg IV twice daily -We will place Burrows for strict I's and O's -Low-sodium diet 1.8 L fluid restriction -Daily weight -Peripheral edema could be related to recent dexamethasone use as well. -BNP 15 3. Possible CAP -Blood cultures pending -We will continue Rocephin and azithromycin today -Infection unlikely at this time. Will monitor closely though due to immunosuppression 4. Shingles herpetic neuralgia -Holding gabapentin as well as hydromorphone at this time -Try lidocaine patch -Tylenol total of 3 g daily as needed -Continue antiviral medication -Limiting narcotic use to small doses of morphine 5. Renal/liver transplant recipient -Renal function within baseline. Patient just saw transplant/crtts yesterday via telehealth felt it was appropriate for patient to seek evaluation due to peripheral edema and dyspnea which he felt was related to dexamethasone use for gout flare. I spoke with Codie transplant liaison for Dr. Zafar, crtts. She is aware as well as Dr. Zafar is aware that patient is currently admitted. Patient's leukopenia is around baseline. Agrees that renal function is at baseline. Codie will discuss case with Dr. Zafar and phone number provided to them for call back if any further questions or requests for medical information is needed. -Tacrolimus level pending -Monitor urine output closely -Continue mycophenolate and tacrolimus VTE prophylaxis: Heparin CODE STATUS: Full code Dispo: Patient transition to ICU this morning secondary to agitation and anxiousness in regards to elevated PCO2. Patient also made inpatient and he will likely need greater than 2 midnight stay Appreciate eICU's participation and recommendations. Codie transplant liaison at [facility] with Dr. Zafar is able to be reached at . Dr. Zafar did see patient via telehealth yesterday and recommended patient to be evaluated in the ER due to his significant shortness of breath.
[2021-02-21] MEDS ORDERED: Azithromycin 500 MG Vial IV SCH (09:00)
[2021-02-21] MEDS ORDERED: VALGANCICLOVIR HCL PO SCH (09:00)
[2021-02-21] MEDS ORDERED: MYCOPHENOLATE MOFETIL 250 MG PO SCH (09:00)
[2021-02-21] MEDS ORDERED: Acetaminophen 500 MG Tab PO ONE (09:00)
[2021-02-21] MEDS: TACROLIMUS 0.75 MG PO SCH (09:00)
[2021-02-21] MEDS: valACYclovir 500 MG Tab PO SCH (09:03)
[2021-02-21] MEDS: Furosemide 40 MG/4 ML VIAL IVPUSH SCH ×2 (09:07→21:02)
[2021-02-21] MEDS: Lidocaine 5% 700 MG Patch TRDERM SCH (09:42)
[2021-02-21] MEDS ORDERED: Sodium Chloride 0.9% 2.5 ML Syringe FLUSH PRN (09:55)
[2021-02-21] MEDS: MYCOPHENOLATE MOFETIL 250 MG PO SCH ×2 (10:13→21:02)
[2021-02-21] MEDS: Morphine 2 MG/ML SYRINGE IVPUSH PRN (12:54)
--- NOTE | 2021-02-21 12:59 | PN ---
[facility] Physician - Brief Progress [id number]/09/2021 12:57[facility] Candelario Butler, [facility] - ORAL CATHERINEDate of Service 02/21/2021 12:57HPI/Events of Note eICU Admission [id number] admitted for respiratory failure. History obtained from review of EMR and discussion with bedside provider over telephone.PMH: CAD s/p stenting, some question of asthma or CO PD, and CHF, is on oxygen at home 3-4LPM. Had a prior liver and renal transplant on tacrolimus and my cophenolate.HPI: Patient had come in with worsening respiratory failure and edema attributed to a flu id overloaded state from CHF. Has shingles on the left side of his face for which BPAP has been painf ul. Per report baseline creatinine around 1.9. Given PCO2 in the 70s, eICU was involved for further c omment.Camera exam: Laying in bed on BPAP. Vitals monitor reviewed. eICU Impression and Recommendatio ns:ABG demonstrates chronic compensated hypercapnic respiratory failure. From the data available I ca n't comment on the presence/contribution of asthma or COPD, given elevated BMI I anticipate a large p roportion of this is related to obesity hypoventilation syndromeCreatinine appears to be at baseline per report, total protein normal and albumin marginally low, urine protein negative per UA dipstick, which makes me less concerned for renal allograft dysfunction. Surprisingly BNP is within normal rang e, per bedside provider TTE from 04/2020 had revealed normal EF and grade I diastolic dysfunction - fr om the above data I struggle to explain patient's apparent fluid overloaded state on clinical exam.Murillo ggest discussion of case with patient's transplant team, specifically regarding dosing of immunosuppr essive therapy in setting of leukopenia, and discussion regarding the utility of antibiotic therapy. At this time given presenting history does not suggest infection would discontinue antibiotics and mo nitor clinical status (and restart antibiotics should patient deteriorate)As long as patient comforta ble/without increased work of breathing, would stop BPAP therapy. Reasonable to initiate it at night/ during naps if tolerated by patientContinue anti-viral therapy for shinglesTacrolimus level pendingAg ree with TTE, read pendingReasonable to trial diuresis given apparent volume overloaded state, would maintain strict I/O and target net -500cc in a 24 hour periodDVT and GI prophylaxis as appropriate.Th ank you for allowing us to participate in the care of this patient.Unless otherwise specified, defer implementation of above recommendations to discretion of bedside provider. Please do not hesitate to contact the eICU service for questions, clarification, or assistance with implementation.The above no te transcribed with the assistance of dictation software. Please excuse any errors.Interventions Irais r-Respiratory failure - evaluation and managementElectronically Signed by: RUDOLPH BUCKLEY) on 12:58
--- NOTE | 2021-02-21 13:00 | PN ---
[facility] Physician - Brief Progress [id number]/09/2021 12:59[facility] juanpablo Peterson, [place] - [place] ([facility]) - ORAL CATHERINEDate of Service 02/21/2021 12:59HPI/Events of Note eICU Update NoteOut of an abundance of caution will order blood cultures, however at this time p resentation does not appear to suggest infection as etiology.Interventions Major-Respiratory failure - evaluation and management
[2021-02-21] MEDS: Albuterol 0.083% 2.5 MG/3 ML Neb Soln NEB PRN ×3 (14:12→22:08)
[2021-02-21] MEDS ORDERED: acetaZOLAMIDE 250 MG Tab PO ONE (17:00)
[2021-02-21] MEDS: Acetaminophen 500 MG Tab PO PRN (17:14)
[2021-02-21] MEDS ORDERED: Azithromycin 500 MG in Sodium Chloride 0.9% 250 ML IV SCH (20:00)
[2021-02-22] MEDS: Acetaminophen 500 MG Tab PO PRN ×5 (01:00→22:04)
[2021-02-22] MEDS: Heparin Sodium 5,000 Units/ML Vial SUBCUT SCH ×3 (04:31→22:07)
[2021-02-22 07:52] LABS: CARBON DIOXIDE,CO2 43.4 mmol/L (21.0-32.0); POTASSIUM,K 3.4 mmol/L (3.5-5.1)
[2021-02-22] MEDS ORDERED: Potassium Chloride 20 MEQ Tab.ER PO ONE (08:40)
[2021-02-22] MEDS: valACYclovir 500 MG Tab PO SCH (08:55)
[2021-02-22] MEDS: Gabapentin 300 MG Cap PO SCH ×2 (08:55→20:15)
[2021-02-22] MEDS: MYCOPHENOLATE MOFETIL 250 MG PO SCH ×2 (08:56→20:40)
[2021-02-22] MEDS: TACROLIMUS 0.75 MG PO SCH (08:56)
[2021-02-22] MEDS: Furosemide 40 MG/4 ML VIAL IVPUSH SCH ×2 (09:00→21:10)
[2021-02-22] MEDS: Lidocaine 5% 700 MG Patch TRDERM SCH (09:01)
[2021-02-22] MEDS: Albuterol 0.083% 2.5 MG/3 ML Neb Soln NEB PRN ×2 (09:12→18:24)
--- NOTE | 2021-02-22 09:27 | PCM.PN ---
- General Info Date of Service: 02/22/21 Admission Dx/Problem (Free Text): Admission Diagnosis/Problem Admission Diagnosis/Problem acute on chronic hypercapnic hypoxic respiratory failure, possible CHF diastolic exacerbation Subjective Update: Had intermittent confusion overnight, mainly upon waking. easily reoriented with staff and at bedside. Denies chest pain. Reports chest is less congested feeling and improving SOB. Denies abdominal pain. Reports tenderness to swollen legs with palpation. Continues to have herpetic neuralgia pains, which really no meds are helping. Functional Status: Reports: Tolerating Diet, Ambulating. Denies: Pain Controlled - Review of Systems General: Denies: Weakness, Malaise HEENT: Reports: Headaches. Denies: Sore Throat, Visual Changes Pulmonary: Reports: Shortness of Breath (improving). Denies: Cough Cardiovascular: Reports: No Symptoms. Denies: Chest Pain Gastrointestinal: Reports: No Symptoms. Denies: Abdominal Pain, Nausea, Vomiting Genitourinary: Reports: No Symptoms. Denies: Dysuria, Frequency, Burning Musculoskeletal: Reports: Other (nerve pain to L jaw and post auricular area down to L trapezius). Denies: Neck Pain Skin: Reports: No Symptoms Neurological: Reports: No Symptoms Psychiatric: Reports: No Symptoms - Patient Data Vitals - Most Recent: Last Vital Signs Temp 96.7 F L 02/22/21 08:00 Pulse 91 02/21/21 07:07 Resp 21 H 02/22/21 08:00 BP 119/71 02/22/21 08:00 Pulse Ox 98 02/22/21 08:00 Weight - Most Recent: 122.47 kg I&O - Last 24 Hours: Intake & Output 02/21/21 02/22/21 02/22/21 22:59 06:59 14:59 Intake Total 840 900 Output Total 158 * 210 Balance -74 * -118$ @ Lab Results Last 24 Hours: Laboratory Results - last 24 hr 02/21/21 02/21/21 02/22/21 Range/Units 11:16 14:03 07:11 WBC 3.06 L (4.0-11.0) K/uL RBC 3.48 L (4.50-5.90) M/uL Hgb 10.9 L (13.0-17.0) g/dL Hct 34.8 L (38.0-50.0) % MCV 100.0 H (80.0-98.0) fL MCH 31.3 (27.0-32.0) pg MCHC 31.3 (31.0-37.0) g/dL RDW Std Deviation 66.6 H (28.0-62.0) fl RDW Coeff of Uday 18 H (11.0-15.0) % Plt Count 144 L (150-400) K/uL MPV 11.40 (7.40-12.00) fL Neut % (Auto) 68.0 (48.0-80.0) % Lymph % (Auto) 17.0 (16.0-40.0) % [place] % (Auto) 12.4 (0.0-15.0) % Eos % (Auto) 2.3 (0.0-7.0) % Baso % (Auto) 0.3 (0.0-1.5) % Neut # (Auto) 2.1 (1.4-5.7) K/uL Lymph # (Auto) 0.5 L (0.6-2.4) K/uL [place] # (Auto) 0.4 (0.0-0.8) K/uL Eos # (Auto) 0.1 (0.0-0.7) K/uL Baso # (Auto) 0.0 (0.0-0.1) K/uL Nucleated RBC % 0.0 /100WBC Nucleated RBCs # 0 K/uL ABG pH 7.40 7.41 (7.35-7.45) ABG pCO2 75 H 73 H (35-45) mmHG ABG pO2 48 L 56 L (80-105) mmHG ABG HCO3 47 H 47 H (22-26) mEq/L ABG Total CO2 43.7 H 43.4 H (23-27) mmol/L ABG Base Excess 18.7 H 18.9 H (-2.0-3.0) Sodium (136-148) mmol/L Potassium (3.5-5.1) mmol/L Chloride (98-107) mmol/L Carbon Dioxide (21.0-32.0) mmol/L BUN (7.0-18.0) mg/dL Creatinine (0.8-1.3) mg/dL Est Cr Clr Drug Dosing mL/min Estimated GFR (MDRD) ml/min Glucose (74-106) mg/dL Calcium (8.5-10.1) mg/dL Total Bilirubin (0.2-1.0) mg/dL AST (15-37) IU/L ALT (14-63) IU/L Alkaline Phosphatase (46-116) U/L Total Protein (6.4-8.2) g/dL Albumin (3.4-5.0) g/dL Globulin (2.6-4.0) g/dL Albumin/Globulin Ratio (0.9-1.6) 02/22/21 Range/Units 07:11 WBC (4.0-11.0) K/uL RBC (4.50-5.90) M/uL Hgb (13.0-17.0) g/dL Hct (38.0-50.0) % MCV (80.0-98.0) fL MCH (27.0-32.0) pg MCHC (31.0-37.0) g/dL RDW Std Deviation (28.0-62.0) fl RDW Coeff of Uday (11.0-15.0) % Plt Count (150-400) K/uL MPV (7.40-12.00) fL Neut % (Auto) (48.0-80.0) % Lymph % (Auto) (16.0-40.0) % [place] % (Auto) (0.0-15.0) % Eos % (Auto) (0.0-7.0) % Baso % (Auto) (0.0-1.5) % Neut # (Auto) (1.4-5.7) K/uL Lymph # (Auto) (0.6-2.4) K/uL [place] # (Auto) (0.0-0.8) K/uL Eos # (Auto) (0.0-0.7) K/uL Baso # (Auto) (0.0-0.1) K/uL Nucleated RBC % /100WBC Nucleated RBCs # K/uL ABG pH (7.35-7.45) ABG pCO2 (35-45) mmHG ABG pO2 (80-105) mmHG ABG HCO3 (22-26) mEq/L ABG Total CO2 (23-27) mmol/L ABG Base Excess (-2.0-3.0) Sodium 141 (136-148) mmol/L Potassium 3.4 L (3.5-5.1) mmol/L Chloride 96 L (98-107) mmol/L Carbon Dioxide 43.4 H (21.0-32.0) mmol/L BUN 63 H (7.0-18.0) mg/dL Creatinine 1.7 H (0.8-1.3) mg/dL Est Cr Clr Drug Dosing 46.38 mL/min Estimated GFR (MDRD) 41.8 ml/min Glucose 106 (74-106) mg/dL Calcium 9.3 (8.5-10.1) mg/dL Total Bilirubin 0.5 (0.2-1.0) mg/dL AST 19 (15-37) IU/L ALT 21 (14-63) IU/L Alkaline Phosphatase 70 (46-116) U/L Total Protein 7.8 (6.4-8.2) g/dL Albumin 3.3 L (3.4-5.0) g/dL Globulin 4.5 H (2.6-4.0) g/dL Albumin/Globulin Ratio 0.7 L (0.9-1.6) Med Orders - Current: Current Medications Acetaminophen (Acetaminophen 500 Mg Tab) 500 mg PO Q4H PRN PRN Reason: Pain Last Admin: 02/22/21 09:01 Dose: 500 mg Documented by: Albuterol (Albuterol 0.083% 2.5 Mg/3 Ml Neb Soln) 2.5 mg NEB Q4HRRT PRN PRN Reason: Shortness of Breath Last Admin: 02/22/21 09:12 Dose: 2.5 mg Documented by: Cetirizine HCl (Cetirizine 10 Mg Tab) 10 mg PO DAILY PRN PRN Reason: Allergies Furosemide (Furosemide 40 Mg/4 Ml Vial) 40 mg IVPUSH BID [facility] Last Admin: 02/22/21 09:00 Dose: 40 mg Documented by: Gabapentin (Gabapentin 300 Mg Cap) 300 mg PO BID [facility] Last Admin: 02/22/21 08:55 Dose: 300 mg Documented by: Heparin Sodium (Porcine) (Heparin Sodium 5,000 Units/Ml Vial) 5,000 units SUBCUT Q8H [facility] Last Admin: 02/22/21 04:31 Dose: Not Given Documented by: Ceftriaxone Sodium/Dextrose 1 (gm/ Premix) 50 mls @ 100 mls/hr IV Q24H [facility] Last Admin: 02/21/21 22:53 Dose: 100 mls/hr Documented by: Azithromycin 500 mg/ Sodium (Chloride) 250 mls @ 250 mls/hr IV Q24H [facility] Last Admin: 02/21/21 20:42 Dose: 250 mls/hr Documented by: Lidocaine (Lidocaine 5% 700 Mg Patch) 700 mg TRDERM Q24H [facility] Last Admin: 02/22/21 09:01 Dose: Not Given Documented by: Miscellaneous Information (Remove Patch) 1 ea TRDERM Q24H [facility] Last Admin: 02/21/21 21:03 Dose: Not Given Documented by: Morphine Sulfate (Morphine 2 Mg/Ml Syringe) 1 mg IVPUSH Q4H PRN PRN Reason: Pain Last Admin: 02/21/21 12:54 Dose: 1 mg Documented by: Ondansetron HCl (Ondansetron 4 Mg/2 Ml Sdv) 4 mg IVPUSH Q4H PRN PRN Reason: Nausea/Vomiting Tacrolimus 0.75 Mg (Er Tablets) 2 each PO DAILY [facility] Last Admin: 02/22/21 08:56 Dose: 2 each Documented by: Mycophenolate Mofetil 250 Mg Cap * Own Med 1 each PO BID [facility] Last Admin: 02/22/21 08:56 Dose: 1 each Documented by: Polyethylene Glycol (Polyethylene Glycol 3350 Powder 17 Gm Packet) 17 gm PO DAILY PRN PRN Reason: Constipation Sodium Chloride (Sodium Chloride 0.9% 2.5 Ml Syringe) 2.5 ml FLUSH ASDIRECTED PRN PRN Reason: Keep Vein Open Valacyclovir HCl (Valacyclovir 500 Mg Tab) 1,000 mg PO DAILY [facility] Last Admin: 02/22/21 08:55 Dose: 1,000 mg Documented by: Discontinued Medications Acetaminophen (Acetaminophen 500 Mg Tab) 1,000 mg PO ONETIME ONE Stop: 02/21/21 09:01 Last Admin: 02/21/21 09:00 Dose: 1,000 mg Documented by: Acetaminophen (Acetaminophen 500 Mg Tab) 1,000 mg PO Q8H PRN PRN Reason: Pain Last Admin: 02/22/21 01:00 Dose: 1,000 mg Documented by: Acetazolamide (Acetazolamide 250 Mg Tab) 500 mg PO ONETIME ONE Stop: 02/21/21 17:01 Last Admin: 02/21/21 17:16 Dose: 500 mg Documented by: Albuterol (Albuterol 0.083% 2.5 Mg/3 Ml Neb Soln) Confirm Administered Dose 2.5 mg .ROUTE .STK-MED ONE Stop: 02/20/21 23:11 Last Admin: 02/20/21 23:19 Dose: 2.5 mg Documented by: Albuterol/Ipratropium (Albuterol/Ipratropium 3.0-0.5 Mg/3 Ml Neb Soln) 3 ml NEB Q4HRRT PRN PRN Reason: Shortness Of Breath/wheezing Azithromycin (Azithromycin 500 Mg Vial) 250 mg IV Q24H [facility] Last Admin: 02/20/21 22:40 Dose: Not Given Documented by: Ceftriaxone Sodium (Ceftriaxone 1 Gm Vial) 1 gm IVPUSH Q24H [facility] Last Admin: 02/20/21 22:54 Dose: Not Given Documented by: Furosemide (Furosemide 40 Mg/4 Ml Vial) 20 mg IVPUSH NOW ONE Stop: 02/20/21 16:25 Last Admin: 02/20/21 16:54 Dose: 20 mg Documented by: Azithromycin 500 mg/ Sodium (Chloride) 250 mls @ 250 mls/hr IV ONETIME [facility] Last Admin: 02/20/21 22:10 Dose: 250 mls/hr Documented by: Morphine Sulfate (Morphine 2 Mg/Ml Syringe) 2 mg IVPUSH ONETIME ONE Stop: 02/20/21 18:14 Last Admin: 02/20/21 18:18 Dose: 2 mg Documented by: Mycophenolate Mofetil (Mycophenolate Mofetil 250 Mg Cap Own Med) 250 mg PO BID [facility] Last Admin: 02/21/21 10:14 Dose: Not Given Documented by: Potassium Chloride (Potassium Chloride 20 Meq Tab.Er) 40 meq PO ONETIME ONE Stop: 02/22/21 08:41 Last Admin: 02/22/21 08:54 Dose: 40 meq Documented by: Sodium Chloride (Sodium Chloride 0.9% 10 Ml Syringe) 10 ml FLUSH ASDIRECTED PRN PRN Reason: Keep Vein Open Last Admin: 02/20/21 15:47 Dose: 10 ml Documented by: Sodium Chloride (Sodium Chloride 0.9% 2.5 Ml Syringe) 2.5 ml FLUSH ASDIRECTED PRN PRN Reason: Keep Vein Open Last Admin: 02/20/21 15:47 Dose: 2.5 ml Documented by: Tacrolimus (Tacrolimus 0.75 Mg CapOwn Med) 0 mg PO DAILY [facility] Last Admin: 02/21/21 02:18 Dose: Not Given Documented by: Tacrolimus (Tacrolimus 0.75 Mg CapOwn Med) 0 mg PO DAILY [facility] Last Admin: 02/21/21 10:12 Dose: Not Given Documented by: - Exam Quality Assessment: Supplemental Oxygen (4 L NC), DVT Prophylaxis Urinary Catheter Total Time: 0Days 22Hours General: Alert, Oriented, Cooperative Lungs: Decreased Breath Sounds (bibasilar) Cardiovascular: Regular Rate, Regular Rhythm, No Murmurs GI/Abdominal Exam: Normal Bowel Sounds, Soft, Non-Tender Extremities: Normal Inspection, Normal Range of Motion, Pedal Edema Skin: Other (healing shinlges to L upper sholder and trapezius. does not cross midline and areas are nearly healed and crusted over) Wound/Incisions: Healing Well Neurological: No New Focal Deficit Psy/Mental Status: Alert, Normal Affect, Normal Mood - Patient Data Lab Results Last 24 hrs: Laboratory Results - last 24 hr 02/21/21 02/21/21 02/22/21 Range/Units 11:16 14:03 07:11 WBC 3.06 L (4.0-11.0) K/uL RBC 3.48 L (4.50-5.90) M/uL Hgb 10.9 L (13.0-17.0) g/dL Hct 34.8 L (38.0-50.0) % MCV 100.0 H (80.0-98.0) fL MCH 31.3 (27.0-32.0) pg MCHC 31.3 (31.0-37.0) g/dL RDW Std Deviation 66.6 H (28.0-62.0) fl RDW Coeff of Uday 18 H (11.0-15.0) % Plt Count 144 L (150-400) K/uL MPV 11.40 (7.40-12.00) fL Neut % (Auto) 68.0 (48.0-80.0) % Lymph % (Auto) 17.0 (16.0-40.0) % [place] % (Auto) 12.4 (0.0-15.0) % Eos % (Auto) 2.3 (0.0-7.0) % Baso % (Auto) 0.3 (0.0-1.5) % Neut # (Auto) 2.1 (1.4-5.7) K/uL Lymph # (Auto) 0.5 L (0.6-2.4) K/uL [place] # (Auto) 0.4 (0.0-0.8) K/uL Eos # (Auto) 0.1 (0.0-0.7) K/uL Baso # (Auto) 0.0 (0.0-0.1) K/uL Nucleated RBC % 0.0 /100WBC Nucleated RBCs # 0 K/uL ABG pH 7.40 7.41 (7.35-7.45) ABG pCO2 75 H 73 H (35-45) mmHG ABG pO2 48 L 56 L (80-105) mmHG ABG HCO3 47 H 47 H (22-26) mEq/L ABG Total CO2 43.7 H 43.4 H (23-27) mmol/L ABG Base Excess 18.7 H 18.9 H (-2.0-3.0) Sodium (136-148) mmol/L Potassium (3.5-5.1) mmol/L Chloride (98-107) mmol/L Carbon Dioxide (21.0-32.0) mmol/L BUN (7.0-18.0) mg/dL Creatinine (0.8-1.3) mg/dL Est Cr Clr Drug Dosing mL/min Estimated GFR (MDRD) ml/min Glucose (74-106) mg/dL Calcium (8.5-10.1) mg/dL Total Bilirubin (0.2-1.0) mg/dL AST (15-37) IU/L ALT (14-63) IU/L Alkaline Phosphatase (46-116) U/L Total Protein (6.4-8.2) g/dL Albumin (3.4-5.0) g/dL Globulin (2.6-4.0) g/dL Albumin/Globulin Ratio (0.9-1.6) 02/22/21 Range/Units 07:11 WBC (4.0-11.0) K/uL RBC (4.50-5.90) M/uL Hgb (13.0-17.0) g/dL Hct (38.0-50.0) % MCV (80.0-98.0) fL MCH (27.0-32.0) pg MCHC (31.0-37.0) g/dL RDW Std Deviation (28.0-62.0) fl RDW Coeff of Uday (11.0-15.0) % Plt Count (150-400) K/uL MPV (7.40-12.00) fL Neut % (Auto) (48.0-80.0) % Lymph % (Auto) (16.0-40.0) % [place] % (Auto) (0.0-15.0) % Eos % (Auto) (0.0-7.0) % Baso % (Auto) (0.0-1.5) % Neut # (Auto) (1.4-5.7) K/uL Lymph # (Auto) (0.6-2.4) K/uL [place] # (Auto) (0.0-0.8) K/uL Eos # (Auto) (0.0-0.7) K/uL Baso # (Auto) (0.0-0.1) K/uL Nucleated RBC % /100WBC Nucleated RBCs # K/uL ABG pH (7.35-7.45) ABG pCO2 (35-45) mmHG ABG pO2 (80-105) mmHG ABG HCO3 (22-26) mEq/L ABG Total CO2 (23-27) mmol/L ABG Base Excess (-2.0-3.0) Sodium 141 (136-148) mmol/L Potassium 3.4 L (3.5-5.1) mmol/L Chloride 96 L (98-107) mmol/L Carbon Dioxide 43.4 H (21.0-32.0) mmol/L BUN 63 H (7.0-18.0) mg/dL Creatinine 1.7 H (0.8-1.3) mg/dL Est Cr Clr Drug Dosing 46.38 mL/min Estimated GFR (MDRD) 41.8 ml/min Glucose 106 (74-106) mg/dL Calcium 9.3 (8.5-10.1) mg/dL Total Bilirubin 0.5 (0.2-1.0) mg/dL AST 19 (15-37) IU/L ALT 21 (14-63) IU/L Alkaline Phosphatase 70 (46-116) U/L Total Protein 7.8 (6.4-8.2) g/dL Albumin 3.3 L (3.4-5.0) g/dL Globulin 4.5 H (2.6-4.0) g/dL Albumin/Globulin Ratio 0.7 L (0.9-1.6) Result Diagrams: 02/22/21 07:11 02/22/21 07:11 Sepsis Event Note - Evaluation Sepsis Screening Result: No Definite Risk - Focused Exam Vital Signs: Vital Signs Temp Resp BP Pulse Ox 02/22/21 08:00 96.7 F L 21 H 119/71 98 02/22/21 07:00 17 121/62 94 L 02/22/21 06:00 16 90/56 L 94 L 02/22/21 05:00 20 108/71 91 L 02/22/21 04:00 97.5 F 17 90/47 L 96 02/22/21 03:00 22 H 97/60 92 L 02/22/21 02:00 18 87/50 L 96 02/22/21 01:00 15 101/77 93 L 02/22/21 00:00 98.2 F 18 104/59 L 91 L 02/21/21 23:00 13 115/70 95 02/21/21 22:00 19 94 L - Problem List & Annotations (1) Acute on chronic respiratory failure with hypoxia and hypercapnia SNOMED Code(s): 70142779167808 Code(s): J96.21 - ACUTE AND CHRONIC RESPIRATORY FAILURE WITH HYPOXIA; J96.22 - ACUTE AND CHRONIC RESPIRATORY FAILURE WITH HYPERCAPNIA Status: Acute Current Visit: Yes (2) Encephalopathy SNOMED Code(s): 54762490 Code(s): G93.40 - ENCEPHALOPATHY, UNSPECIFIED Status: Acute Current Visit: No (3) Pulmonary edema SNOMED Code(s): 04598196 Code(s): J81.1 - CHRONIC PULMONARY EDEMA Status: Acute Current Visit: Yes Qualifiers: Chronicity: acute Qualified Code(s): J81.0 - Acute pulmonary edema (4) Dyspnea SNOMED Code(s): 771690284 Code(s): R06.00 - DYSPNEA, UNSPECIFIED Status: Acute Current Visit: Yes Qualifiers: Dyspnea type: dyspnea on exertion Qualified Code(s): R06.00 - Dyspnea, unspecified (5) Bilateral lower extremity edema SNOMED Code(s): 477150855, 40632652, 001841467 Code(s): R60.0 - LOCALIZED EDEMA Status: Acute Current Visit: Yes (6) Shingles SNOMED Code(s): 3335691 Code(s): B02.9 - ZOSTER WITHOUT COMPLICATIONS Status: Acute Current Visit: Yes Qualifiers: Herpes zoster complications: without complications Qualified Code(s): B02.9 - Zoster without complications (7) Post herpetic neuralgia SNOMED Code(s): 2952825 Code(s): B02.29 - OTHER POSTHERPETIC NERVOUS SYSTEM INVOLVEMENT Status: Acute Current Visit: No (8) Diastolic heart failure SNOMED Code(s): 934823823 Code(s): I50.30 - UNSPECIFIED DIASTOLIC (CONGESTIVE) HEART FAILURE Status: Acute Current Visit: Yes Qualifiers: Heart failure chronicity: acute on chronic Qualified Code(s): I50.33 - Acute on chronic diastolic (congestive) heart failure (9) Immunosuppression SNOMED Code(s): 59559178 Code(s): D84.9 - IMMUNODEFICIENCY, UNSPECIFIED Status: Chronic Current Visit: Yes (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 Status: Chronic Current Visit: Yes (11) Liver transplant recipient SNOMED Code(s): 503982352 Code(s): Z94.4 - LIVER TRANSPLANT STATUS Status: Chronic Current Visit: Yes (12) S/P TIPS (transjugular intrahepatic portosystemic shunt) SNOMED Code(s): 200702363, 301308883 Code(s): Z95.828 - PRESENCE OF OTHER VASCULAR IMPLANTS AND GRAFTS Status: Chronic Current Visit: Yes (13) Depression SNOMED Code(s): 88355264 Code(s): F32.9 - MAJOR DEPRESSIVE DISORDER, SINGLE EPISODE, UNSPECIFIED Status: Chronic Current Visit: Yes Qualifiers: Depression Type: unspecified Qualified Code(s): F32.9 - Major depressive disorder, single episode, unspecified (14) Obesity SNOMED Code(s): 060913812, 601948137 Code(s): E66.9 - OBESITY, UNSPECIFIED Status: Chronic Current Visit: Yes (15) CKD (chronic kidney disease) SNOMED Code(s): 321529824 Code(s): N18.9 - CHRONIC KIDNEY DISEASE, UNSPECIFIED Status: Chronic Current Visit: Yes (16) Asthma SNOMED Code(s): 383674700 Code(s): J45.909 - UNSPECIFIED ASTHMA, UNCOMPLICATED Status: Chronic Current Visit: Yes Qualifiers: Asthma severity: mild Asthma persistence: intermittent (17) Oxygen dependent SNOMED Code(s): 476189099400 Code(s): Z99.81 - DEPENDENCE ON SUPPLEMENTAL OXYGEN Status: Chronic Current Visit: Yes (18) Esophageal varices SNOMED Code(s): 10708098 Code(s): I85.00 - ESOPHAGEAL VARICES WITHOUT BLEEDING Status: Chronic Current Visit: No Onset Date: 09/03/14 - Problem List Review Problem List Initiated/Reviewed/Updated: Yes - My Orders Last 24 Hours: My Active Orders 02/21/21 08:27 Patient Status [ADT] Stat 02/21/21 08:43 Urinary Catheter Assessment [RC] Q4H 02/21/21 08:44 Resuscitation Status Routine 02/21/21 08:45 Insert Burrows Catheter [Insert Urinary Catheter] [OM.PC] Q24H 02/21/21 09:00 Lidocaine 5% [Lidoderm 5%] 700 mg TRDERM Q24H 02/21/21 09:35 Obtain Home Medication List [OM.PC] Routine 02/21/21 09:55 Oxygen System Tester Discontinue [Cardiac Monitoring Discontinue] [RC] Click to Edit Sodium Chloride 0.9% [Saline Flush] 2.5 ml FLUSH ASDIRECTED PRN Saline Lock Insert [OM.PC] Routine 02/21/21 21:00 Remove Patch 1 ea TRDERM Q24H 02/22/21 07:11 MYCOPHENOLIC ACID AND METABO [REF] Routine 02/22/21 07:58 Acetaminophen [Tylenol Extra Strength] 500 mg PO Q4H PRN 02/22/21 09:00 Gabapentin [Neurontin] 300 mg PO BID 02/23/21 05:11 CBC WITH AUTO DIFF [HEME] AM COMPREHENSIVE METABOLIC PN,CMP [CHEM] AM 02/24/21 05:11 CBC WITH AUTO DIFF [HEME] AM COMPREHENSIVE METABOLIC PN,CMP [CHEM] AM - Plan Plan:: 55-year-old admitted for acute on chronic hypercapnic hypoxic respiratory failure most likely secondary to acute diastolic CHF exacerbation 1. Acute on chronic hypercapnic hypoxic respiratory failure -Improving, remains on 4 L NC. - Will obtain Chest CT today, wo contrast. -Hypercapnia stable, likley chronic in nature -Continue nasal cannula 3 to 4 L per home dose at this time, reports he isn't always on oxygen but unsure of normal oxygen sats without oxygen at home. -Albuterol as needed 2. Acute on chronic diastolic CHF exacerbation -Echo pending -Continue Lasix 40 mg IV twice daily -Continue Burrows for strict I's and O's -Low-sodium diet 1.8 L fluid restriction -Daily weight -Peripheral edema could be related to recent dexamethasone use as well. -BNP 15 - Given Diomox per teaching pastor/transplant team recommendations. Bicar 43 this am. monitor tomorrow 3. Possible CAP -Blood cultures pending -Chest CT to help rule out. - Likely DC abx if chest CT clear, without signs of infection -Infection unlikely at this time. Will monitor closely though due to immunosuppression 4. Shingles herpetic neuralgia -Restart Gabapentin at renal dosing 300 mg BID -DC lidocaine patch -Tylenol total of 3 g daily as needed -Continue antiviral medication -Narcotics not working, will DC 5. Renal/liver transplant recipient -Renal function within baseline. -Tacrolimus level pending -Monitor urine output closely -Continue mycophenolate and tacrolimus VTE prophylaxis: Heparin CODE STATUS: Full code Dispo: 2-3 pending improvement Appreciate eICU's participation and recommendations. Codie, transplant liaison at [facility] with Dr. Zafar is able to be reached at .
--- NOTE | 2021-02-22 12:10 | CT ---
For Patients: As a result of the Century Cures Act, medical imaging exams and procedure reports are released immediately into your electronic medical record. You may view this report before your referring provider. If you have questions, please contact your health care provider. INDICATION: Hypoxia and dyspnea. TECHNIQUE: Volumetric helical scanning of the thorax was performed without IV contrast material. Coronal and sagittal reconstructions were obtained. COMPARISON: Chest x-ray of 02/20/2021. FINDINGS: The lungs are low in volume with crowded markings. Diffuse ground-glass infiltrates are demonstrated, most significant in the anterior left upper lobe apex lung with atelectasis in the right lower lobe. The infiltrates are suspect represent pulmonary edema. The pulmonary veins are engorged. There is no obvious pleural effusion. The heart size is normal. Calcified coronary arterial plaque is demonstrated. The right diaphragm is mildly elevated. There is no mediastinal or hilar lymphadenopathy. Images of the upper abdomen demonstrate a markedly atrophic right kidney. The left kidney is not visualized. The spleen appears to be moderately enlarged. Embolization coils are present in the region of the GE junction. 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 Wall calcification of the IVC is noted in this region. IMPRESSION: 1. Shallow inspiration and suspected CHF with pulmonary edema. A combination of pulmonary edema and pneumonia is certainly possible. 2. Coronary artery disease. 3. Mild right diaphragmatic elevation. 4. 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 5. Markedly atrophic right kidney. 6. Moderate splenomegaly. Please note that all CT scans at this facility use dose modulation, iterative reconstruction, and/or weight-based dosing when appropriate to reduce radiation dose to as low as reasonably achievable. Dictated by Leopoldo Singh MD @ 02/22/2021 12:08:[address] Leopoldo Singh @ [facility] 2020 12:08PM
[2021-02-22] MEDS: Sodium Chloride 0.65% Nasal Spray 45 ML Bottle NAS PRN ×2 (13:30→20:39)
[2021-02-22] MEDS: oxyCODONE 5 MG Tab PO PRN ×2 (15:49→20:15)
[2021-02-23] MEDS: oxyCODONE 5 MG Tab PO PRN ×6 (00:17→23:07)
[2021-02-23] MEDS: Acetaminophen 500 MG Tab PO PRN ×3 (02:15→19:54)
[2021-02-23 06:13] LABS: CARBON DIOXIDE,CO2 39.8 mmol/L (21.0-32.0); POTASSIUM,K 3.7 mmol/L (3.5-5.1)
[2021-02-23] MEDS: Albuterol 0.083% 2.5 MG/3 ML Neb Soln NEB PRN ×2 (06:16→19:55)
--- NOTE | 2021-02-23 08:00 | PCM.PN ---
- General Info Date of Service: 02/23/21 Admission Dx/Problem (Free Text): Admission Diagnosis/Problem Admission Diagnosis/Problem acute on chronic hypercapnic hypoxic respiratory failure, possible CHF diastolic exacerbation Subjective Update: Doing well this morning, continues to have intermittent pain. NO chest pain . SOB improving. No cough or fever. Wants to be up moving. Functional Status: Reports: Tolerating Diet, Ambulating, Urinating. Denies: Pain Controlled - Review of Systems General: Reports: Malaise HEENT: Reports: No Symptoms. Denies: Headaches, Sore Throat, Visual Changes Pulmonary: Reports: No Symptoms. Denies: Shortness of Breath Cardiovascular: Reports: Edema. Denies: Chest Pain Gastrointestinal: Reports: No Symptoms. Denies: Abdominal Pain, Nausea, Vomiting Genitourinary: Reports: No Symptoms. Denies: Dysuria, Frequency, Burning Musculoskeletal: Reports: No Symptoms Skin: Reports: No Symptoms Neurological: Reports: No Symptoms Psychiatric: Reports: No Symptoms - Patient Data Vitals - Most Recent: Last Vital Signs Temp 97.7 F 02/23/21 07:00 Pulse 91 02/21/21 07:07 Resp 14 02/23/21 07:00 BP 102/53 L 02/23/21 07:00 Pulse Ox 94 L 02/23/21 07:00 Weight - Most Recent: 124.058 kg I&O - Last 24 Hours: Intake & Output 02/22/21 02/23/21 02/23/21 22:59 06:59 14:59 Intake Total 850 900 Output Total 137 * 102 * Balance -52 * -10) Lab Results Last 24 Hours: Laboratory Results - last 24 hr 02/23/21 02/23/21 Range/Units 04:55 04:55 WBC 3.14 L (4.0-11.0) K/uL RBC 3.25 L (4.50-5.90) M/uL Hgb 10.1 L (13.0-17.0) g/dL Hct 32.1 L (38.0-50.0) % MCV 98.8 H (80.0-98.0) fL MCH 31.1 (27.0-32.0) pg MCHC 31.5 (31.0-37.0) g/dL RDW Std Deviation 66.3 H (28.0-62.0) fl RDW Coeff of Uday 19 H (11.0-15.0) % Plt Count 138 L (150-400) K/uL MPV 10.60 (7.40-12.00) fL Neut % (Auto) 66.0 (48.0-80.0) % Lymph % (Auto) 16.2 (16.0-40.0) % [place] % (Auto) 15.3 H (0.0-15.0) % Eos % (Auto) 2.2 (0.0-7.0) % Baso % (Auto) 0.3 (0.0-1.5) % Neut # (Auto) 2.1 (1.4-5.7) K/uL Lymph # (Auto) 0.5 L (0.6-2.4) K/uL [place] # (Auto) 0.5 (0.0-0.8) K/uL Eos # (Auto) 0.1 (0.0-0.7) K/uL Baso # (Auto) 0.0 (0.0-0.1) K/uL Nucleated RBC % 1.0 /100WBC Nucleated RBCs # 0 K/uL Sodium 139 (136-148) mmol/L Potassium 3.7 (3.5-5.1) mmol/L Chloride 98 (98-107) mmol/L Carbon Dioxide 39.8 H (21.0-32.0) mmol/L BUN 59 H (7.0-18.0) mg/dL Creatinine 1.6 H (0.8-1.3) mg/dL Est Cr Clr Drug Dosing 49.28 mL/min Estimated GFR (MDRD) 44.8 ml/min Glucose 103 (74-106) mg/dL Calcium 9.1 (8.5-10.1) mg/dL Total Bilirubin 0.4 (0.2-1.0) mg/dL AST 17 (15-37) IU/L ALT 20 (14-63) IU/L Alkaline Phosphatase 62 (46-116) U/L Total Protein 7.0 (6.4-8.2) g/dL Albumin 3.0 L (3.4-5.0) g/dL Globulin 4.0 (2.6-4.0) g/dL Albumin/Globulin Ratio 0.8 L (0.9-1.6) Eris Results Last 24 Hours: Microbiology 02/21/21 13:41 Aerobic Blood Culture - Preliminary Blood - Venous - Lab Draw NO GROWTH AFTER 1 DAY Anaerobic Blood Culture - Preliminary NO GROWTH AFTER 1 DAY 02/21/21 13:27 Aerobic Blood Culture - Preliminary Blood - Venous NO GROWTH AFTER 1 DAY Anaerobic Blood Culture - Preliminary NO GROWTH AFTER 1 DAY Med Orders - Current: Current Medications Acetaminophen (Acetaminophen 500 Mg Tab) 500 mg PO Q4H PRN PRN Reason: Pain Last Admin: 02/23/21 06:16 Dose: 500 mg Documented by: Albuterol (Albuterol 0.083% 2.5 Mg/3 Ml Neb Soln) 2.5 mg NEB Q4HRRT PRN PRN Reason: Shortness of Breath Last Admin: 02/23/21 06:16 Dose: 2.5 mg Documented by: Cetirizine HCl (Cetirizine 10 Mg Tab) 10 mg PO DAILY PRN PRN Reason: Allergies Furosemide (Furosemide 40 Mg/4 Ml Vial) 40 mg IVPUSH BID [facility] Last Admin: 02/22/21 21:10 Dose: 40 mg Documented by: Gabapentin (Gabapentin 300 Mg Cap) 300 mg PO BID [facility] Last Admin: 02/22/21 20:15 Dose: 300 mg Documented by: Heparin Sodium (Porcine) (Heparin Sodium 5,000 Units/Ml Vial) 5,000 units SUBCUT Q12H [facility] Last Admin: 02/22/21 22:07 Dose: 5,000 units Documented by: Ondansetron HCl (Ondansetron 4 Mg/2 Ml Sdv) 4 mg IVPUSH Q4H PRN PRN Reason: Nausea/Vomiting Oxycodone HCl (Oxycodone 5 Mg Tab) 5 mg PO Q4H PRN PRN Reason: Pain Last Admin: 02/23/21 05:00 Dose: 5 mg Documented by: Tacrolimus 0.75 Mg (Er Tablets) 2 each PO DAILY [facility] Last Admin: 02/22/21 08:56 Dose: 2 each Documented by: Mycophenolate Mofetil 250 Mg Cap * Own Med 1 each PO BID [facility] Last Admin: 02/22/21 20:40 Dose: 1 each Documented by: Polyethylene Glycol (Polyethylene Glycol 3350 Powder 17 Gm Packet) 17 gm PO DAILY PRN PRN Reason: Constipation Sodium Chloride (Sodium Chloride 0.9% 2.5 Ml Syringe) 2.5 ml FLUSH ASDIRECTED PRN PRN Reason: Keep Vein Open Sodium Chloride (Sodium Chloride 0.65% Nasal [place] 45 Ml Bottle) 0 ml RASHMI Q4H PRN PRN Reason: nasal dryness/congestion Last Admin: 02/22/21 20:39 Dose: 2 spray Documented by: Valacyclovir HCl (Valacyclovir 500 Mg Tab) 1,000 mg PO DAILY [facility] Last Admin: 02/22/21 08:55 Dose: 1,000 mg Documented by: Discontinued Medications Acetaminophen (Acetaminophen 500 Mg Tab) 1,000 mg PO ONETIME ONE Stop: 02/21/21 09:01 Last Admin: 02/21/21 09:00 Dose: 1,000 mg Documented by: Acetaminophen (Acetaminophen 500 Mg Tab) 1,000 mg PO Q8H PRN PRN Reason: Pain Last Admin: 02/22/21 01:00 Dose: 1,000 mg Documented by: Acetazolamide (Acetazolamide 250 Mg Tab) 500 mg PO ONETIME ONE Stop: 02/21/21 17:01 Last Admin: 02/21/21 17:16 Dose: 500 mg Documented by: Albuterol (Albuterol 0.083% 2.5 Mg/3 Ml Neb Soln) Confirm Administered Dose 2.5 mg .ROUTE .STK-MED ONE Stop: 02/20/21 23:11 Last Admin: 02/20/21 23:19 Dose: 2.5 mg Documented by: Albuterol/Ipratropium (Albuterol/Ipratropium 3.0-0.5 Mg/3 Ml Neb Soln) 3 ml NEB Q4HRRT PRN PRN Reason: Shortness Of Breath/wheezing Azithromycin (Azithromycin 500 Mg Vial) 250 mg IV Q24H [facility] Last Admin: 02/20/21 22:40 Dose: Not Given Documented by: Ceftriaxone Sodium (Ceftriaxone 1 Gm Vial) 1 gm IVPUSH Q24H [facility] Last Admin: 02/20/21 22:54 Dose: Not Given Documented by: Furosemide (Furosemide 40 Mg/4 Ml Vial) 20 mg IVPUSH NOW ONE Stop: 02/20/21 16:25 Last Admin: 02/20/21 16:54 Dose: 20 mg Documented by: Heparin Sodium (Porcine) (Heparin Sodium 5,000 Units/Ml Vial) 5,000 units SUBCUT Q8H [facility] Last Admin: 02/22/21 04:31 Dose: Not Given Documented by: Azithromycin 500 mg/ Sodium (Chloride) 250 mls @ 250 mls/hr IV ONETIME [facility] Last Admin: 02/20/21 22:10 Dose: 250 mls/hr Documented by: Ceftriaxone Sodium/Dextrose 1 (gm/ Premix) 50 mls @ 100 mls/hr IV Q24H [facility] Last Admin: 02/21/21 22:53 Dose: 100 mls/hr Documented by: Azithromycin 500 mg/ Sodium (Chloride) 250 mls @ 250 mls/hr IV Q24H [facility] Last Admin: 02/21/21 20:42 Dose: 250 mls/hr Documented by: Lidocaine (Lidocaine 5% 700 Mg Patch) 700 mg TRDERM Q24H [facility] Last Admin: 02/22/21 09:01 Dose: Not Given Documented by: Miscellaneous Information (Remove Patch) 1 ea TRDERM Q24H [facility] Last Admin: 02/21/21 21:03 Dose: Not Given Documented by: Morphine Sulfate (Morphine 2 Mg/Ml Syringe) 2 mg IVPUSH ONETIME ONE Stop: 02/20/21 18:14 Last Admin: 02/20/21 18:18 Dose: 2 mg Documented by: Morphine Sulfate (Morphine 2 Mg/Ml Syringe) 1 mg IVPUSH Q4H PRN PRN Reason: Pain Last Admin: 02/21/21 12:54 Dose: 1 mg Documented by: Mycophenolate Mofetil (Mycophenolate Mofetil 250 Mg Cap Own Med) 250 mg PO BID [facility] Last Admin: 02/21/21 10:14 Dose: Not Given Documented by: Potassium Chloride (Potassium Chloride 20 Meq Tab.Er) 40 meq PO ONETIME ONE Stop: 02/22/21 08:41 Last Admin: 02/22/21 08:54 Dose: 40 meq Documented by: Sodium Chloride (Sodium Chloride 0.9% 10 Ml Syringe) 10 ml FLUSH ASDIRECTED PRN PRN Reason: Keep Vein Open Last Admin: 02/20/21 15:47 Dose: 10 ml Documented by: Sodium Chloride (Sodium Chloride 0.9% 2.5 Ml Syringe) 2.5 ml FLUSH ASDIRECTED PRN PRN Reason: Keep Vein Open Last Admin: 02/20/21 15:47 Dose: 2.5 ml Documented by: Tacrolimus (Tacrolimus 0.75 Mg CapOwn Med) 0 mg PO DAILY [facility] Last Admin: 02/21/21 02:18 Dose: Not Given Documented by: Tacrolimus (Tacrolimus 0.75 Mg CapOwn Med) 0 mg PO DAILY [facility] Last Admin: 02/21/21 10:12 Dose: Not Given Documented by: - Exam Quality Assessment: Supplemental Oxygen (continues to wean down) Urinary Catheter Total Time: 1Days 18Hours General: Alert Lungs: Crackles Cardiovascular: Regular Rate, Regular Rhythm GI/Abdominal Exam: Normal Bowel Sounds, Soft, Non-Tender Extremities: Normal Inspection, Normal Range of Motion, Non-Tender, Pedal Edema (+3 pitting edema) Neurological: No New Focal Deficit Psy/Mental Status: Alert, Normal Affect, Normal Mood - Patient Data Lab Results Last 24 hrs: Laboratory Results - last 24 hr 02/23/21 02/23/21 Range/Units 04:55 04:55 WBC 3.14 L (4.0-11.0) K/uL RBC 3.25 L (4.50-5.90) M/uL Hgb 10.1 L (13.0-17.0) g/dL Hct 32.1 L (38.0-50.0) % MCV 98.8 H (80.0-98.0) fL MCH 31.1 (27.0-32.0) pg MCHC 31.5 (31.0-37.0) g/dL RDW Std Deviation 66.3 H (28.0-62.0) fl RDW Coeff of Uday 19 H (11.0-15.0) % Plt Count 138 L (150-400) K/uL MPV 10.60 (7.40-12.00) fL Neut % (Auto) 66.0 (48.0-80.0) % Lymph % (Auto) 16.2 (16.0-40.0) % [place] % (Auto) 15.3 H (0.0-15.0) % Eos % (Auto) 2.2 (0.0-7.0) % Baso % (Auto) 0.3 (0.0-1.5) % Neut # (Auto) 2.1 (1.4-5.7) K/uL Lymph # (Auto) 0.5 L (0.6-2.4) K/uL [place] # (Auto) 0.5 (0.0-0.8) K/uL Eos # (Auto) 0.1 (0.0-0.7) K/uL Baso # (Auto) 0.0 (0.0-0.1) K/uL Nucleated RBC % 1.0 /100WBC Nucleated RBCs # 0 K/uL Sodium 139 (136-148) mmol/L Potassium 3.7 (3.5-5.1) mmol/L Chloride 98 (98-107) mmol/L Carbon Dioxide 39.8 H (21.0-32.0) mmol/L BUN 59 H (7.0-18.0) mg/dL Creatinine 1.6 H (0.8-1.3) mg/dL Est Cr Clr Drug Dosing 49.28 mL/min Estimated GFR (MDRD) 44.8 ml/min Glucose 103 (74-106) mg/dL Calcium 9.1 (8.5-10.1) mg/dL Total Bilirubin 0.4 (0.2-1.0) mg/dL AST 17 (15-37) IU/L ALT 20 (14-63) IU/L Alkaline Phosphatase 62 (46-116) U/L Total Protein 7.0 (6.4-8.2) g/dL Albumin 3.0 L (3.4-5.0) g/dL Globulin 4.0 (2.6-4.0) g/dL Albumin/Globulin Ratio 0.8 L (0.9-1.6) Result Diagrams: 02/23/21 04:55 02/23/21 04:55 Eris Results Last 24 hrs: Microbiology 02/21/21 13:41 Aerobic Blood Culture - Preliminary Blood - Venous - Lab Draw NO GROWTH AFTER 1 DAY Anaerobic Blood Culture - Preliminary NO GROWTH AFTER 1 DAY 02/21/21 13:27 Aerobic Blood Culture - Preliminary Blood - Venous NO GROWTH AFTER 1 DAY Anaerobic Blood Culture - Preliminary NO GROWTH AFTER 1 DAY Sepsis Event Note - Evaluation Sepsis Screening Result: Sepsis Risk - Focused Exam Vital Signs: Vital Signs Temp Resp BP Pulse Ox 02/23/21 07:00 97.7 F 14 102/53 L 94 L 02/23/21 06:00 24 H 110/63 94 L 02/23/21 05:00 96.8 F L 17 124/43 L 95 02/23/21 04:00 22 H 107/66 92 L 02/23/21 03:00 15 102/62 96 02/23/21 02:00 27 H 107/65 91 L 02/23/21 00:00 15 114/63 92 L 02/22/21 23:00 16 93/52 L 98 02/22/21 22:00 96.7 F L 15 101/62 97 02/22/21 21:00 96.8 F L 20 101/65 97 - Problem List & Annotations (1) Acute on chronic respiratory failure with hypoxia and hypercapnia SNOMED Code(s): 33150329238293 Code(s): J96.21 - ACUTE AND CHRONIC RESPIRATORY FAILURE WITH HYPOXIA; J96.22 - ACUTE AND CHRONIC RESPIRATORY FAILURE WITH HYPERCAPNIA Status: Acute Current Visit: Yes (2) Encephalopathy SNOMED Code(s): 56377076 Code(s): G93.40 - ENCEPHALOPATHY, UNSPECIFIED Status: Acute Current Visit: No (3) Pulmonary edema SNOMED Code(s): 07610891 Code(s): J81.1 - CHRONIC PULMONARY EDEMA Status: Acute Current Visit: Yes Qualifiers: Chronicity: acute Qualified Code(s): J81.0 - Acute pulmonary edema (4) Dyspnea SNOMED Code(s): 362952215 Code(s): R06.00 - DYSPNEA, UNSPECIFIED Status: Acute Current Visit: Yes Qualifiers: Dyspnea type: dyspnea on exertion Qualified Code(s): R06.00 - Dyspnea, unspecified (5) Bilateral lower extremity edema SNOMED Code(s): 775014287, 33670466, 864358612 Code(s): R60.0 - LOCALIZED EDEMA Status: Acute Current Visit: Yes (6) Shingles SNOMED Code(s): 2237226 Code(s): B02.9 - ZOSTER WITHOUT COMPLICATIONS Status: Acute Current Visit: Yes Qualifiers: Herpes zoster complications: without complications Qualified Code(s): B02.9 - Zoster without complications (7) Post herpetic neuralgia SNOMED Code(s): 5953807 Code(s): B02.29 - OTHER POSTHERPETIC NERVOUS SYSTEM INVOLVEMENT Status: Acute Current Visit: No (8) Diastolic heart failure SNOMED Code(s): 453926337 Code(s): I50.30 - UNSPECIFIED DIASTOLIC (CONGESTIVE) HEART FAILURE Status: Acute Current Visit: Yes Qualifiers: Heart failure chronicity: acute on chronic Qualified Code(s): I50.33 - Acu te on chronic diastolic (congestive) heart failure (9) Immunosuppression SNOMED Code(s): 32514850 Code(s): D84.9 - IMMUNODEFICIENCY, UNSPECIFIED Status: Chronic Current Visit: Yes (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 Status: Chronic Current Visit: Yes (11) Liver transplant recipient SNOMED Code(s): 891162059 Code(s): Z94.4 - LIVER TRANSPLANT STATUS Status: Chronic Current Visit: Yes (12) S/P TIPS (transjugular intrahepatic portosystemic shunt) SNOMED Code(s): 020317200, 639271952 Code(s): Z95.828 - PRESENCE OF OTHER VASCULAR IMPLANTS AND GRAFTS Status: Chronic Current Visit: Yes (13) Depression SNOMED Code(s): 77996846 Code(s): F32.9 - MAJOR DEPRESSIVE DISORDER, SINGLE EPISODE, UNSPECIFIED Status: Chronic Current Visit: Yes Qualifiers: Depression Type: unspecified Qualified Code(s): F32.9 - Major depressive disorder, single episode, unspecified (14) Obesity SNOMED Code(s): 515682667, 962030754 Code(s): E66.9 - OBESITY, UNSPECIFIED Status: Chronic Current Visit: Yes (15) CKD (chronic kidney disease) SNOMED Code(s): 520579656 Code(s): N18.9 - CHRONIC KIDNEY DISEASE, UNSPECIFIED Status: Chronic Current Visit: Yes (16) Asthma SNOMED Code(s): 026219790 Code(s): J45.909 - UNSPECIFIED ASTHMA, UNCOMPLICATED Status: Chronic Current Visit: Yes Qualifiers: Asthma severity: mild Asthma persistence: intermittent (17) Oxygen dependent SNOMED Code(s): 634103556185 Code(s): Z99.81 - DEPENDENCE ON SUPPLEMENTAL OXYGEN Status: Chronic Current Visit: Yes (18) Esophageal varices SNOMED Code(s): 70633779 Code(s): I85.00 - ESOPHAGEAL VARICES WITHOUT BLEEDING Status: Chronic Current Visit: No Onset Date: 09/03/14 - Problem List Review Problem List Initiated/Reviewed/Updated: Yes - My Orders Last 24 Hours: My Active Orders 02/22/21 07:11 MYCOPHENOLIC ACID AND METABO [REF] Routine 02/22/21 07:58 Acetaminophen [Tylenol Extra Strength] 500 mg PO Q4H PRN 02/22/21 09:00 Gabapentin [Neurontin] 300 mg PO BID 02/22/21 10:07 Sodium Chloride 0.65% [[place] Nasal [place]] See Dose Instructions RASHMI Q4H PRN 02/22/21 10:45 Heparin Sodium 5,000 units SUBCUT Q12H 02/22/21 15:00 oxyCODONE 5 mg PO Q4H PRN 02/24/21 05:11 CBC WITH AUTO DIFF [HEME] AM COMPREHENSIVE METABOLIC PN,CMP [CHEM] AM - Plan Plan:: 55-year-old admitted for acute on chronic hypercapnic hypoxic respiratory failure most likely secondary to acute diastolic CHF exacerbation 1. Acute on chronic hypercapnic hypoxic respiratory failure -Improving, weaning oxygen now at 3 L NC - Chest CT revealed pulmonary edema no infectious process. Will continue diuresis -Hypercapnia stable, likely chronic in nature -Continue nasal cannula 3 to 4 L per home dose at this time, reports he isn't always on oxygen but unsure of normal oxygen sats without oxygen at home. -Albuterol as needed -Reviewed records from [facility] in [facility] he did have a PFT which showed mixed disorder suggesting some obstructive and restrictive com ponents. Respiratory muscle strength appears to be slightly reduced both expiratory and inspiratory. 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 2. Acute on chronic diastolic CHF exacerbation -Echo EF 60%. Normal left ventricular systolic function, mild concentric LVH normal LV diastolic filling normal right ventricular size, wall thickness and systolic function. Trace aortic and mitral valve regurgitation trace tricuspid valve regurgitation right ventricular systolic pressure borderline at 26.6 no r egional wall motion abnormalities. Has had history of diminished right jugular systolic function. -Continue Lasix 40 mg IV three times daily -Continue [place] for strict I's and O's -Low-sodium diet 1.8 L fluid restriction, encouraged to monitor fluids more -Daily weight -Peripheral edema could be related to recent dexamethasone use as well. -BNP 15 3. Shingles herpetic neuralgia -Gabapentin 300 mg BID -Oxycodone monitor mental status -Tylenol total of 3 g daily as needed -Continue antiviral medication 4. Renal/liver transplant recipient -Renal function within baseline. -Tacrolimus level pending, MPA level pending -Monitor urine output closely -Continue mycophenolate and tacrolimus VTE prophylaxis: Heparin CODE STATUS: Full code Dispo: 2-3 pending improvement Appreciate eICU's participation and recommendations. Codie, transplant liaison [facility] with Dr. Zafar is able to be reached at .
[2021-02-23] MEDS: valACYclovir 500 MG Tab PO SCH (09:11)
[2021-02-23] MEDS: Furosemide 40 MG/4 ML VIAL IVPUSH SCH ×3 (09:11→21:21)
[2021-02-23] MEDS: Gabapentin 300 MG Cap PO SCH ×2 (09:11→20:17)
[2021-02-23] MEDS: MYCOPHENOLATE MOFETIL 250 MG PO SCH ×2 (09:12→20:18)
[2021-02-23] MEDS: TACROLIMUS 0.75 MG PO SCH (09:12)
[2021-02-23] MEDS ORDERED: Metolazone 5 MG Tab PO ONE ×2 (09:54→13:30)
[2021-02-23] MEDS ORDERED: oxyCODONE 5 MG Tab PO ONE (10:10)
[2021-02-23] MEDS: Heparin Sodium 5,000 Units/ML Vial SUBCUT SCH ×2 (11:10→22:07)
--- NOTE | 2021-02-23 12:39 | ECHO ---
The echocardiogram report can be seen in this patient's EMR (Electronic Medical Record) in the Reports section. The report has also been scanned into PACS. LUIS ANTONIO
[2021-02-23] MEDS: Polyethylene Glycol 3350 Powder 17 GM Packet PO PRN (20:06)
[2021-02-24] MEDS: Acetaminophen 500 MG Tab PO PRN ×2 (01:22→06:54)
[2021-02-24] MEDS: oxyCODONE 5 MG Tab PO PRN ×6 (04:20→21:13)
[2021-02-24 05:27] LABS: CARBON DIOXIDE,CO2 37.5 mmol/L (21.0-32.0); POTASSIUM,K 3.9 mmol/L (3.5-5.1)
[2021-02-24] MEDS: Furosemide 40 MG/4 ML VIAL IVPUSH SCH ×3 (06:11→21:37)
[2021-02-24] MEDS: Albuterol 0.083% 2.5 MG/3 ML Neb Soln NEB PRN ×3 (06:32→21:37)
[2021-02-24] MEDS: Gabapentin 300 MG Cap PO SCH ×2 (08:37→21:13)
[2021-02-24] MEDS: MYCOPHENOLATE MOFETIL 250 MG PO SCH ×2 (08:38→21:14)
[2021-02-24] MEDS: valACYclovir 500 MG Tab PO SCH (08:38)
[2021-02-24] MEDS: TACROLIMUS 0.75 MG PO SCH (08:39)
[2021-02-24] MEDS: Heparin Sodium 5,000 Units/ML Vial SUBCUT SCH ×2 (11:35→21:45)
--- NOTE | 2021-02-24 16:55 | PCM.PN ---
- General Info Date of Service: 02/24/21 Admission Dx/Problem (Free Text): Admission Diagnosis/Problem Admission Diagnosis/Problem acute on chronic hypercapnic hypoxic respiratory failure, possible CHF diastolic exacerbation Subjective Update: Doing well this morning, continues to have intermittent pain. NO chest pain . SOB improving. No cough or fever. Requesting to increase the dosage of oxycodone to 15 mg, states that oxycodone has significantly helped with the pain Functional Status: Reports: Tolerating Diet, Ambulating, Urinating - Review of Systems General: Denies: Fever, Weakness, Fatigue Pulmonary: Denies: Shortness of Breath, Pleuritic Chest Pain Cardiovascular: Denies: Chest Pain, Palpitations Gastrointestinal: Denies: Abdominal Pain, Constipation Genitourinary: Denies: Dysuria, Frequency, Burning Musculoskeletal: Denies: Neck Pain, Shoulder Pain, Arm Pain, Foot Pain, Joint Pain Skin: Reports: Rash, Other (Shingles rash which is healing) Neurological: Denies: Confusion, Dizziness, Headache Psychiatric: Reports: Anxiety. Denies: Confusion, Depression, Mood Lability - Patient Data Vitals - Most Recent: Last Vital Signs Temp 36.6 C 02/24/21 16:00 Pulse 91 02/21/21 07:07 Resp 18 02/24/21 16:00 BP 97/62 02/24/21 16:00 Pulse Ox 90 L 02/24/21 16:00 Weight - Most Recent: 122.969 kg I&O - Last 24 Hours: Intake & Output 02/24/21 02/24/21 02/24/21 06:59 14:59 22:59 Intake Total 820 650 Output Total 97 * 131 Balance -13) P -66 Lab Results Last 24 Hours: Laboratory Results - last 24 hr 02/24/21 02/24/21 Range/Units 04:40 04:40 WBC 3.36 L (4.0-11.0) K/uL RBC 3.58 L (4.50-5.90) M/uL Hgb 11.0 L (13.0-17.0) g/dL Hct 35.3 L (38.0-50.0) % MCV 98.6 H (80.0-98.0) fL MCH 30.7 (27.0-32.0) pg MCHC 31.2 (31.0-37.0) g/dL RDW Std Deviation 65.9 H (28.0-62.0) fl RDW Coeff of Uday 18 H (11.0-15.0) % Plt Count 164 (150-400) K/uL MPV 11.10 (7.40-12.00) fL Neut % (Auto) 65.8 (48.0-80.0) % Lymph % (Auto) 19.3 (16.0-40.0) % [place] % (Auto) 11.6 (0.0-15.0) % Eos % (Auto) 3.0 (0.0-7.0) % Baso % (Auto) 0.3 (0.0-1.5) % Neut # (Auto) 2.2 (1.4-5.7) K/uL Lymph # (Auto) 0.7 (0.6-2.4) K/uL [place] # (Auto) 0.4 (0.0-0.8) K/uL Eos # (Auto) 0.1 (0.0-0.7) K/uL Baso # (Auto) 0.0 (0.0-0.1) K/uL Nucleated RBC % 0.0 /100WBC Nucleated RBCs # 0 K/uL Sodium 136 (136-148) mmol/L Potassium 3.9 (3.5-5.1) mmol/L Chloride 96 L (98-107) mmol/L Carbon Dioxide 37.5 H (21.0-32.0) mmol/L BUN 62 H (7.0-18.0) mg/dL Creatinine 1.8 H (0.8-1.3) mg/dL Est Cr Clr Drug Dosing 43.81 mL/min Estimated GFR (MDRD) 39.1 ml/min Glucose 102 (74-106) mg/dL Calcium 9.3 (8.5-10.1) mg/dL Total Bilirubin 0.5 (0.2-1.0) mg/dL AST 20 (15-37) IU/L ALT 24 (14-63) IU/L Alkaline Phosphatase 75 (46-116) U/L Total Protein 7.7 (6.4-8.2) g/dL Albumin 3.2 L (3.4-5.0) g/dL Globulin 4.5 H (2.6-4.0) g/dL Albumin/Globulin Ratio 0.7 L (0.9-1.6) Eris Results Last 24 Hours: Microbiology 02/21/21 13:41 Aerobic Blood Culture - Preliminary Blood - Venous - Lab Draw NO GROWTH AFTER 3 DAYS Anaerobic Blood Culture - Preliminary NO GROWTH AFTER 3 DAYS 02/21/21 13:27 Aerobic Blood Culture - Preliminary Blood - Venous NO GROWTH AFTER 3 DAYS Anaerobic Blood Culture - Preliminary NO GROWTH AFTER 3 DAYS Med Orders - Current: Current Medications Acetaminophen (Acetaminophen 500 Mg Tab) 500 mg PO Q4H PRN PRN Reason: Pain Last Admin: 02/24/21 06:54 Dose: 500 mg Documented by: Albuterol (Albuterol 0.083% 2.5 Mg/3 Ml Neb Soln) 2.5 mg NEB Q4HRRT PRN PRN Reason: Shortness of Breath Last Admin: 02/24/21 15:35 Dose: 2.5 mg Documented by: Cetirizine HCl (Cetirizine 10 Mg Tab) 10 mg PO DAILY PRN PRN Reason: Allergies Furosemide (Furosemide 40 Mg/4 Ml Vial) 40 mg IVPUSH TID [facility] Last Admin: 02/24/21 14:40 Dose: 40 mg Documented by: Gabapentin (Gabapentin 300 Mg Cap) 300 mg PO BID [facility] Last Admin: 02/24/21 08:37 Dose: 300 mg Documented by: Heparin Sodium (Porcine) (Heparin Sodium 5,000 Units/Ml Vial) 5,000 units SUBCUT Q12H [facility] Last Admin: 02/24/21 11:35 Dose: 5,000 units Documented by: Ondansetron HCl (Ondansetron 4 Mg/2 Ml Sdv) 4 mg IVPUSH Q4H PRN PRN Reason: Nausea/Vomiting Oxycodone HCl (Oxycodone 5 Mg Tab) 10 mg PO Q3H PRN PRN Reason: Pain Last Admin: 02/24/21 14:38 Dose: 10 mg Documented by: Tacrolimus 0.75 Mg (Er Tablets) 2 each PO DAILY [facility] Last Admin: 02/24/21 08:39 Dose: 2 each Documented by: Mycophenolate Mofetil 250 Mg Cap * Own Med 1 each PO BID [facility] Last Admin: 02/24/21 08:38 Dose: 1 each Documented by: Polyethylene Glycol (Polyethylene Glycol 3350 Powder 17 Gm Packet) 17 gm PO DAILY PRN PRN Reason: Constipation Last Admin: 02/23/21 20:06 Dose: 17 gm Documented by: Sodium Chloride (Sodium Chloride 0.9% 2.5 Ml Syringe) 2.5 ml FLUSH ASDIRECTED PRN PRN Reason: Keep Vein Open Sodium Chloride (Sodium Chloride 0.65% Nasal [place] 45 Ml Bottle) 0 ml RASHMI Q4H PRN PRN Reason: nasal dryness/congestion Last Admin: 02/22/21 20:39 Dose: 2 spray Documented by: Valacyclovir HCl (Valacyclovir 500 Mg Tab) 1,000 mg PO DAILY [facility] Last Admin: 02/24/21 08:38 Dose: 1,000 mg Documented by: Discontinued Medications Acetaminophen (Acetaminophen 500 Mg Tab) 1,000 mg PO ONETIME ONE Stop: 02/21/21 09:01 Last Admin: 02/21/21 09:00 Dose: 1,000 mg Documented by: Acetaminophen (Acetaminophen 500 Mg Tab) 1,000 mg PO Q8H PRN PRN Reason: Pain Last Admin: 02/22/21 01:00 Dose: 1,000 mg Documented by: Acetazolamide (Acetazolamide 250 Mg Tab) 500 mg PO ONETIME ONE Stop: 02/21/21 17:01 Last Admin: 02/21/21 17:16 Dose: 500 mg Documented by: Albuterol (Albuterol 0.083% 2.5 Mg/3 Ml Neb Soln) Confirm Administered Dose 2.5 mg .ROUTE .STK-MED ONE Stop: 02/20/21 23:11 Last Admin: 02/20/21 23:19 Dose: 2.5 mg Documented by: Albuterol/Ipratropium (Albuterol/Ipratropium 3.0-0.5 Mg/3 Ml Neb Soln) 3 ml NEB Q4HRRT PRN PRN Reason: Shortness Of Breath/wheezing Azithromycin (Azithromycin 500 Mg Vial) 250 mg IV Q24H [facility] Last Admin: 02/20/21 22:40 Dose: Not Given Documented by: Ceftriaxone Sodium (Ceftriaxone 1 Gm Vial) 1 gm IVPUSH Q24H [facility] Last Admin: 02/20/21 22:54 Dose: Not Given Documented by: Furosemide (Furosemide 40 Mg/4 Ml Vial) 20 mg IVPUSH NOW ONE Stop: 02/20/21 16:25 Last Admin: 02/20/21 16:54 Dose: 20 mg Documented by: Furosemide (Furosemide 40 Mg/4 Ml Vial) 40 mg IVPUSH BID [facility] Last Admin: 02/23/21 09:11 Dose: 40 mg Documented by: Heparin Sodium (Porcine) (Heparin Sodium 5,000 Units/Ml Vial) 5,000 units SUBCUT Q8H [facility] Last Admin: 02/22/21 04:31 Dose: Not Given Documented by: Azithromycin 500 mg/ Sodium (Chloride) 250 mls @ 250 mls/hr IV ONETIME [facility] Last Admin: 02/20/21 22:10 Dose: 250 mls/hr Documented by: Ceftriaxone Sodium/Dextrose 1 (gm/ Premix) 50 mls @ 100 mls/hr IV Q24H [facility] Last Admin: 02/21/21 22:53 Dose: 100 mls/hr Documented by: Azithromycin 500 mg/ Sodium (Chloride) 250 mls @ 250 mls/hr IV Q24H [facility] Last Admin: 02/21/21 20:42 Dose: 250 mls/hr Documented by: Lidocaine (Lidocaine 5% 700 Mg Patch) 700 mg TRDERM Q24H [facility] Last Admin: 02/22/21 09:01 Dose: Not Given Documented by: Metolazone (Metolazone 5 Mg Tab) 2.5 mg PO ONETIME ONE Stop: 02/23/21 09:55 Last Admin: 02/23/21 11:25 Dose: Not Given Documented by: Metolazone (Metolazone 5 Mg Tab) 2.5 mg PO ONETIME ONE Stop: 02/23/21 13:31 Last Admin: 02/23/21 13:35 Dose: 2.5 mg Documented by: Miscellaneous Information (Remove Patch) 1 ea TRDERM Q24H [facility] Last Admin: 02/21/21 21:03 Dose: Not Given Documented by: Morphine Sulfate (Morphine 2 Mg/Ml Syringe) 2 mg IVPUSH ONETIME ONE Stop: 02/20/21 18:14 Last Admin: 02/20/21 18:18 Dose: 2 mg Documented by: Morphine Sulfate (Morphine 2 Mg/Ml Syringe) 1 mg IVPUSH Q4H PRN PRN Reason: Pain Last Admin: 02/21/21 12:54 Dose: 1 mg Documented by: Mycophenolate Mofetil (Mycophenolate Mofetil 250 Mg Cap Own Med) 250 mg PO BID [facility] Last Admin: 02/21/21 10:14 Dose: Not Given Documented by: Oxycodone HCl (Oxycodone 5 Mg Tab) 5 mg PO Q4H PRN PRN Reason: Pain Last Admin: 02/23/21 09:11 Dose: 5 mg Documented by: Oxycodone HCl (Oxycodone 5 Mg Tab) 5 mg PO ONETIME ONE Stop: 02/23/21 10:11 Last Admin: 02/23/21 10:17 Dose: 5 mg Documented by: Oxycodone HCl (Oxycodone 5 Mg Tab) 10 mg PO Q4H PRN PRN Reason: Pain Last Admin: 02/24/21 11:34 Dose: 10 mg Documented by: Potassium Chloride (Potassium Chloride 20 Meq Tab.Er) 40 meq PO ONETIME ONE Stop: 02/22/21 08:41 Last Admin: 02/22/21 08:54 Dose: 40 meq Documented by: Sodium Chloride (Sodium Chloride 0.9% 10 Ml Syringe) 10 ml FLUSH ASDIRECTED PRN PRN Reason: Keep Vein Open Last Admin: 02/20/21 15:47 Dose: 10 ml Documented by: Sodium Chloride (Sodium Chloride 0.9% 2.5 Ml Syringe) 2.5 ml FLUSH ASDIRECTED PRN PRN Reason: Keep Vein Open Last Admin: 02/20/21 15:47 Dose: 2.5 ml Documented by: Tacrolimus (Tacrolimus 0.75 Mg CapOwn Med) 0 mg PO DAILY [facility] Last Admin: 02/21/21 02:18 Dose: Not Given Documented by: Tacrolimus (Tacrolimus 0.75 Mg CapOwn Med) 0 mg PO DAILY [facility] Last Admin: 02/21/21 10:12 Dose: Not Given Documented by: - Exam Quality Assessment: Supplemental Oxygen Urinary Catheter Total Time: 3Days 6Hours General: Alert, Oriented Lungs: Clear to Auscultation, Normal Respiratory Effort, Decreased Breath Sounds Cardiovascular: Regular Rate, Regular Rhythm GI/Abdominal Exam: Normal Bowel Sounds, Soft, Non-Tender Back Exam: Normal Inspection, Full Range of Motion Extremities: Pedal Edema (Significantly improved) - Patient Data Lab Results Last 24 hrs: Laboratory Results - last 24 hr 02/24/21 02/24/21 Range/Units 04:40 04:40 WBC 3.36 L (4.0-11.0) K/uL RBC 3.58 L (4.50-5.90) M/uL Hgb 11.0 L (13.0-17.0) g/dL Hct 35.3 L (38.0-50.0) % MCV 98.6 H (80.0-98.0) fL MCH 30.7 (27.0-32.0) pg MCHC 31.2 (31.0-37.0) g/dL RDW Std Deviation 65.9 H (28.0-62.0) fl RDW Coeff of Uday 18 H (11.0-15.0) % Plt Count 164 (150-400) K/uL MPV 11.10 (7.40-12.00) fL Neut % (Auto) 65.8 (48.0-80.0) % Lymph % (Auto) 19.3 (16.0-40.0) % [place] % (Auto) 11.6 (0.0-15.0) % Eos % (Auto) 3.0 (0.0-7.0) % Baso % (Auto) 0.3 (0.0-1.5) % Neut # (Auto) 2.2 (1.4-5.7) K/uL Lymph # (Auto) 0.7 (0.6-2.4) K/uL [place] # (Auto) 0.4 (0.0-0.8) K/uL Eos # (Auto) 0.1 (0.0-0.7) K/uL Baso # (Auto) 0.0 (0.0-0.1) K/uL Nucleated RBC % 0.0 /100WBC Nucleated RBCs # 0 K/uL Sodium 136 (136-148) mmol/L Potassium 3.9 (3.5-5.1) mmol/L Chloride 96 L (98-107) mmol/L Carbon Dioxide 37.5 H (21.0-32.0) mmol/L BUN 62 H (7.0-18.0) mg/dL Creatinine 1.8 H (0.8-1.3) mg/dL Est Cr Clr Drug Dosing 43.81 mL/min Estimated GFR (MDRD) 39.1 ml/min Glucose 102 (74-106) mg/dL Calcium 9.3 (8.5-10.1) mg/dL Total Bilirubin 0.5 (0.2-1.0) mg/dL AST 20 (15-37) IU/L ALT 24 (14-63) IU/L Alkaline Phosphatase 75 (46-116) U/L Total Protein 7.7 (6.4-8.2) g/dL Albumin 3.2 L (3.4-5.0) g/dL Globulin 4.5 H (2.6-4.0) g/dL Albumin/Globulin Ratio 0.7 L (0.9-1.6) Result Diagrams: 02/24/21 04:40 02/24/21 04:40 Eris Results Last 24 hrs: Microbiology 02/21/21 13:41 Aerobic Blood Culture - Preliminary Blood - Venous - Lab Draw NO GROWTH AFTER 3 DAYS Anaerobic Blood Culture - Preliminary NO GROWTH AFTER 3 DAYS 02/21/21 13:27 Aerobic Blood Culture - Preliminary Blood - Venous NO GROWTH AFTER 3 DAYS Anaerobic Blood Culture - Preliminary NO GROWTH AFTER 3 DAYS Sepsis Event Note - Evaluation Sepsis Screening Result: No Definite Risk - Focused Exam Vital Signs: Vital Signs Temp Resp BP Pulse Ox Pulse Ox 02/24/21 16:00 36.6 C 18 97/62 90 L 02/24/21 12:00 36.7 C 20 108/68 90 L 02/24/21 09:00 94 L 02/24/21 08:00 36.4 C 19 118/75 93 L - Problem List & Annotations (1) Acute on chronic respiratory failure with hypoxia and hypercapnia SNOMED Code(s): 96593834030746 Code(s): J96.21 - ACUTE AND CHRONIC RESPIRATORY FAILURE WITH HYPOXIA; J96.22 - ACUTE AND CHRONIC RESPIRATORY FAILURE WITH HYPERCAPNIA Status: Acute Current Visit: Yes (2) Bilateral lower extremity edema SNOMED Code(s): 809654215, 85418064, 092148910 Code(s): R60.0 - LOCALIZED EDEMA Status: Acute Current Visit: Yes (3) Diastolic heart failure SNOMED Code(s): 882190201 Code(s): I50.30 - UNSPECIFIED DIASTOLIC (CONGESTIVE) HEART FAILURE Status: Acute Current Visit: Yes Qualifiers: Heart failure chronicity: acute on chronic Qualified Code(s): I50.33 - Acute on chronic diastolic (congestive) heart failure (4) Shingles SNOMED Code(s): 3467623 Code(s): B02.9 - ZOSTER WITHOUT COMPLICATIONS Status: Acute Current Visit: Yes Qualifiers: Herpes zoster complications: without complications Qualified Code(s): B02.9 - Zoster without complications (5) Asthma SNOMED Code(s): 909603179 Code(s): J45.909 - UNSPECIFIED ASTHMA, UNCOMPLICATED Status: Chronic Current Visit: Yes Qualifiers: Asthma severity: mild Asthma persistence: intermittent (6) CKD (chronic kidney disease) SNOMED Code(s): 845878454 Code(s): N18.9 - CHRONIC KIDNEY DISEASE, UNSPECIFIED Status: Chronic Current Visit: Yes (7) Immunosuppression SNOMED Code(s): 45072572 Code(s): D84.9 - IMMUNODEFICIENCY, UNSPECIFIED Status: Chronic Current Visit: Yes (8) Liver transplant recipient SNOMED Code(s): 499230012 Code(s): Z94.4 - LIVER TRANSPLANT STATUS Status: Chronic Current Visit: Yes (9) Oxygen dependent SNOMED Code(s): 408960298571 Code(s): Z99.81 - DEPENDENCE ON SUPPLEMENTAL OXYGEN Status: Chronic Current Visit: Yes (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 Status: Chronic Current Visit: Yes (11) S/P TIPS (transjugular intrahepatic portosystemic shunt) SNOMED Code(s): 507640826, 527423948 Code(s): Z95.828 - PRESENCE OF OTHER VASCULAR IMPLANTS AND GRAFTS Status: Chronic Current Visit: Yes (12) Post herpetic neuralgia SNOMED Code(s): 7638555 Code(s): B02.29 - OTHER POSTHERPETIC NERVOUS SYSTEM INVOLVEMENT Status: Acute Current Visit: No - Problem List Review Problem List Initiated/Reviewed/Updated: Yes - My Orders Last 24 Hours: My Active Orders 02/23/21 20:00 Communication Order [RC] Q12H 02/24/21 15:00 oxyCODONE 10 mg PO Q3H PRN - Plan Plan:: 55-year-old admitted for acute on chronic hypercapnic hypoxic respiratory failure most likely secondary to acute diastolic CHF exacerbation 1. Acute on chronic hypercapnic hypoxic respiratory failure -Improving, weaning oxygen now at 3 L NC - Chest CT revealed pulmonary edema no infectious process. Will continue diuresis -Hypercapnia stable, likely chronic in nature -Continue nasal cannula 3 to 4 L per home dose at this time, reports he isn't always on oxygen but unsure of normal oxygen sats without oxygen at home. -Albuterol as needed -Reviewed records from [facility] in [facility] he did have a PFT which showed mixed disorder suggesting some obstructive and restrictive components. Respiratory muscle strength appears to be slightly reduced both expiratory and inspiratory. 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 2. Acute on chronic diastolic CHF exacerbation -Echo EF 60%. Normal left ventricular systolic function, mild concentric LVH normal LV diastolic filling normal right ventricular size, wall thickness and systolic function. Trace aortic and mitral valve regurgitation trace tricuspid valve regurgitation right ventricular systolic pressure borderline at 26.6 no regional wall motion abnormalities. Has had history of diminished right jugular systolic function. -Continue Lasix 40 mg IV three times daily -Continue [place] for strict I's and O's -Low-sodium diet 1.8 L fluid restriction, encouraged to monitor fluids more -Daily weight, which has improved today -Peripheral edema could be related to recent dexamethasone use as well. -BNP 15 3. Shingles herpetic neuralgia -Gabapentin 300 mg BID -We will increase the frequency of oxycodone 10 mg every 3h, monitor mental status -Tylenol total of 3 g daily as needed -Continue antiviral medication 4. Renal/liver transplant recipient -Renal function within baseline. 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 Likely chronic finding as collaterals have been established VTE prophylaxis: Heparin CODE STATUS: Full code Dispo: 2-3 pending improvement Appreciate eICU's participation and recommendations. [facility]ie transplant liaison at [facility] with Dr. Zafar is able to be reached at .
[2021-02-24] MEDS: Polyethylene Glycol 3350 Powder 17 GM Packet PO PRN (21:36)
[2021-02-25] MEDS: oxyCODONE 5 MG Tab PO PRN ×8 (01:38→20:57)
[2021-02-25] MEDS: Acetaminophen 500 MG Tab PO PRN (04:54)
[2021-02-25] MEDS: Albuterol 0.083% 2.5 MG/3 ML Neb Soln NEB PRN ×2 (04:55→16:09)
[2021-02-25] MEDS: Furosemide 40 MG/4 ML VIAL IVPUSH SCH (06:24)
[2021-02-25 07:23] LABS: CARBON DIOXIDE,CO2 36.7 mmol/L (21.0-32.0); POTASSIUM,K 3.6 mmol/L (3.5-5.1)
[2021-02-25] MEDS: Gabapentin 300 MG Cap PO SCH ×2 (08:52→20:57)
[2021-02-25] MEDS: valACYclovir 500 MG Tab PO SCH (08:52)
[2021-02-25] MEDS: TACROLIMUS 0.75 MG PO SCH (08:53)
[2021-02-25] MEDS: MYCOPHENOLATE MOFETIL 250 MG PO SCH ×2 (08:54→21:01)
[2021-02-25] MEDS: Polyethylene Glycol 3350 Powder 17 GM Packet PO PRN (09:02)
[2021-02-25] MEDS: Heparin Sodium 5,000 Units/ML Vial SUBCUT SCH ×2 (10:53→23:55)
--- NOTE | 2021-02-25 14:01 | PCM.PN ---
- General Info Date of Service: 02/25/21 Admission Dx/Problem (Free Text): Admission Diagnosis/Problem Admission Diagnosis/Problem acute on chronic hypercapnic hypoxic respiratory failure, possible CHF diastolic exacerbation Subjective Update: Doing well this morning, continues to have intermittent pain. NO chest pain . SOB improving. No cough or fever. Has been doing well on 10 mg oxycodone. Functional Status: Reports: Pain Controlled, Tolerating Diet, Ambulating - Review of Systems General: Denies: Fever, Weakness Pulmonary: Denies: Shortness of Breath, Pleuritic Chest Pain, Cough Cardiovascular: Denies: Chest Pain, Palpitations, Dyspnea on Exertion Gastrointestinal: Denies: Abdominal Pain, Constipation, Decreased Appetite Genitourinary: Denies: Dysuria, Frequency, Burning Skin: Denies: Cyanosis, Jaundice, Mottled Neurological: Denies: Confusion, Dizziness, Headache Psychiatric: Denies: Confusion, Depression, Mood Lability - Patient Data Vitals - Most Recent: Last Vital Signs Temp 36.2 C 02/25/21 11:04 Pulse 84 02/25/21 11:04 Resp 17 02/25/21 11:04 BP 111/68 02/25/21 11:04 Pulse Ox 91 L 02/25/21 11:04 Weight - Most Recent: 122.969 kg I&O - Last 24 Hours: Intake & Output 02/24/21 02/25/21 02/25/21 22:59 06:59 14:59 Intake Total 650 770 Output Total 131 95 Balance -66 -16$ @ Lab Results Last 24 Hours: Laboratory Results - last 24 hr 02/25/21 02/25/21 Range/Units 06:30 06:30 WBC 3.98 L (4.0-11.0) K/uL RBC 3.37 L (4.50-5.90) M/uL Hgb 10.5 L (13.0-17.0) g/dL Hct 32.9 L (38.0-50.0) % MCV 97.6 (80.0-98.0) fL MCH 31.2 (27.0-32.0) pg MCHC 31.9 (31.0-37.0) g/dL RDW Std Deviation 64.1 H (28.0-62.0) fl RDW Coeff of Uday 18 H (11.0-15.0) % Plt Count 154 (150-400) K/uL MPV 11.30 (7.40-12.00) fL Neut % (Auto) 68.3 (48.0-80.0) % Lymph % (Auto) 16.3 (16.0-40.0) % [place] % (Auto) 12.6 (0.0-15.0) % Eos % (Auto) 2.3 (0.0-7.0) % Baso % (Auto) 0.5 (0.0-1.5) % Neut # (Auto) 2.7 (1.4-5.7) K/uL Lymph # (Auto) 0.7 (0.6-2.4) K/uL [place] # (Auto) 0.5 (0.0-0.8) K/uL Eos # (Auto) 0.1 (0.0-0.7) K/uL Baso # (Auto) 0.0 (0.0-0.1) K/uL Nucleated RBC % 0.0 /100WBC Nucleated RBCs # 0 K/uL Sodium 135 L (136-148) mmol/L Potassium 3.6 (3.5-5.1) mmol/L Chloride 94 L (98-107) mmol/L Carbon Dioxide 36.7 H (21.0-32.0) mmol/L BUN 64 H (7.0-18.0) mg/dL Creatinine 2.0 H (0.8-1.3) mg/dL Est Cr Clr Drug Dosing 39.43 mL/min Estimated GFR (MDRD) 34.6 ml/min Glucose 119 H (74-106) mg/dL Calcium 8.8 (8.5-10.1) mg/dL Phosphorus 5.4 H (2.6-4.7) mg/dL Magnesium 2.4 (1.8-2.4) mg/dL Total Bilirubin 0.5 (0.2-1.0) mg/dL AST 24 (15-37) IU/L ALT 28 (14-63) IU/L Alkaline Phosphatase 77 (46-116) U/L Total Protein 7.4 (6.4-8.2) g/dL Albumin 3.1 L (3.4-5.0) g/dL Globulin 4.3 H (2.6-4.0) g/dL Albumin/Globulin Ratio 0.7 L (0.9-1.6) Eris Results Last 24 Hours: Microbiology 02/21/21 13:41 Aerobic Blood Culture - Preliminary Blood - Venous - Lab Draw NO GROWTH AFTER 4 DAYS Anaerobic Blood Culture - Preliminary NO GROWTH AFTER 4 DAYS 02/21/21 13:27 Aerobic Blood Culture - Preliminary Blood - Venous NO GROWTH AFTER 4 DAYS Anaerobic Blood Culture - Preliminary NO GROWTH AFTER 4 DAYS Med Orders - Current: Current Medications Acetaminophen (Acetaminophen 500 Mg Tab) 500 mg PO Q4H PRN PRN Reason: Pain Last Admin: 02/25/21 04:54 Dose: 500 mg Documented by: Albuterol (Albuterol 0.083% 2.5 Mg/3 Ml Neb Soln) 2.5 mg NEB Q4HRRT PRN PRN Reason: Shortness of Breath Last Admin: 02/25/21 04:55 Dose: 2.5 mg Documented by: Cetirizine HCl (Cetirizine 10 Mg Tab) 10 mg PO DAILY PRN PRN Reason: Allergies Furosemide (Furosemide 40 Mg/4 Ml Vial) 40 mg IVPUSH BID [facility] Gabapentin (Gabapentin 300 Mg Cap) 300 mg PO BID [facility] Last Admin: 02/25/21 08:52 Dose: 300 mg Documented by: Heparin Sodium (Porcine) (Heparin Sodium 5,000 Units/Ml Vial) 5,000 units SUBCUT Q12H [facility] Last Admin: 02/25/21 10:53 Dose: 5,000 units Documented by: Ondansetron HCl (Ondansetron 4 Mg/2 Ml Sdv) 4 mg IVPUSH Q4H PRN PRN Reason: Nausea/Vomiting Oxycodone HCl (Oxycodone 5 Mg Tab) 10 mg PO Q3H PRN PRN Reason: Pain Last Admin: 02/25/21 12:55 Dose: 10 mg Documented by: Tacrolimus 0.75 Mg (Er Tablets) 2 each PO DAILY [facility] Last Admin: 02/25/21 08:53 Dose: 2 each Documented by: Mycophenolate Mofetil 250 Mg Cap * Own Med 1 each PO BID [facility] Last Admin: 02/25/21 08:54 Dose: 1 each Documented by: Polyethylene Glycol (Polyethylene Glycol 3350 Powder 17 Gm Packet) 17 gm PO DAILY PRN PRN Reason: Constipation Last Admin: 02/25/21 09:02 Dose: 17 gm Documented by: Sodium Chloride (Sodium Chloride 0.9% 2.5 Ml Syringe) 2.5 ml FLUSH ASDIRECTED PRN PRN Reason: Keep Vein Open Sodium Chloride (Sodium Chloride 0.65% Nasal [place] 45 Ml Bottle) 0 ml RASHMI Q4H PRN PRN Reason: nasal dryness/congestion Last Admin: 02/22/21 20:39 Dose: 2 spray Documented by: Valacyclovir HCl (Valacyclovir 500 Mg Tab) 1,000 mg PO DAILY [facility] Last Admin: 02/25/21 08:52 Dose: 1,000 mg Documented by: Discontinued Medications Acetaminophen (Acetaminophen 500 Mg Tab) 1,000 mg PO ONETIME ONE Stop: 02/21/21 09:01 Last Admin: 02/21/21 09:00 Dose: 1,000 mg Documented by: Acetaminophen (Acetaminophen 500 Mg Tab) 1,000 mg PO Q8H PRN PRN Reason: Pain Last Admin: 02/22/21 01:00 Dose: 1,000 mg Documented by: Acetazolamide (Acetazolamide 250 Mg Tab) 500 mg PO ONETIME ONE Stop: 02/21/21 17:01 Last Admin: 02/21/21 17:16 Dose: 500 mg Documented by: Albuterol (Albuterol 0.083% 2.5 Mg/3 Ml Neb Soln) Confirm Administered Dose 2.5 mg .ROUTE .STK-MED ONE Stop: 02/20/21 23:11 Last Admin: 02/20/21 23:19 Dose: 2.5 mg Documented by: Albuterol/Ipratropium (Albuterol/Ipratropium 3.0-0.5 Mg/3 Ml Neb Soln) 3 ml NEB Q4HRRT PRN PRN Reason: Shortness Of Breath/wheezing Azithromycin (Azithromycin 500 Mg Vial) 250 mg IV Q24H [facility] Last Admin: 02/20/21 22:40 Dose: Not Given Documented by: Ceftriaxone Sodium (Ceftriaxone 1 Gm Vial) 1 gm IVPUSH Q24H [facility] Last Admin: 02/20/21 22:54 Dose: Not Given Documented by: Furosemide (Furosemide 40 Mg/4 Ml Vial) 20 mg IVPUSH NOW ONE Stop: 02/20/21 16:25 Last Admin: 02/20/21 16:54 Dose: 20 mg Documented by: Furosemide (Furosemide 40 Mg/4 Ml Vial) 40 mg IVPUSH BID [facility] Last Admin: 02/23/21 09:11 Dose: 40 mg Documented by: Furosemide (Furosemide 40 Mg/4 Ml Vial) 40 mg IVPUSH TID [facility] Last Admin: 02/25/21 06:24 Dose: 40 mg Documented by: Heparin Sodium (Porcine) (Heparin Sodium 5,000 Units/Ml Vial) 5,000 units SUBCUT Q8H [facility] Last Admin: 02/22/21 04:31 Dose: Not Given Documented by: Azithromycin 500 mg/ Sodium (Chloride) 250 mls @ 250 mls/hr IV ONETIME [facility] Last Admin: 02/20/21 22:10 Dose: 250 mls/hr Documented by: Ceftriaxone Sodium/Dextrose 1 (gm/ Premix) 50 mls @ 100 mls/hr IV Q24H [facility] Last Admin: 02/21/21 22:53 Dose: 100 mls/hr Documented by: Azithromycin 500 mg/ Sodium (Chloride) 250 mls @ 250 mls/hr IV Q24H [facility] Last Admin: 02/21/21 20:42 Dose: 250 mls/hr Documented by: Lidocaine (Lidocaine 5% 700 Mg Patch) 700 mg TRDERM Q24H [facility] Last Admin: 02/22/21 09:01 Dose: Not Given Documented by: Metolazone (Metolazone 5 Mg Tab) 2.5 mg PO ONETIME ONE Stop: 02/23/21 09:55 Last Admin: 02/23/21 11:25 Dose: Not Given Documented by: Metolazone (Metolazone 5 Mg Tab) 2.5 mg PO ONETIME ONE Stop: 02/23/21 13:31 Last Admin: 02/23/21 13:35 Dose: 2.5 mg Documented by: Miscellaneous Information (Remove Patch) 1 ea TRDERM Q24H [facility] Last Admin: 02/21/21 21:03 Dose: Not Given Documented by: Morphine Sulfate (Morphine 2 Mg/Ml Syringe) 2 mg IVPUSH ONETIME ONE Stop: 02/20/21 18:14 Last Admin: 02/20/21 18:18 Dose: 2 mg Documented by: Morphine Sulfate (Morphine 2 Mg/Ml Syringe) 1 mg IVPUSH Q4H PRN PRN Reason: Pain Last Admin: 02/21/21 12:54 Dose: 1 mg Documented by: Mycophenolate Mofetil (Mycophenolate Mofetil 250 Mg Cap Own Med) 250 mg PO BID [facility] Last Admin: 02/21/21 10:14 Dose: Not Given Documented by: Oxycodone HCl (Oxycodone 5 Mg Tab) 5 mg PO Q4H PRN PRN Reason: Pain Last Admin: 02/23/21 09:11 Dose: 5 mg Documented by: Oxycodone HCl (Oxycodone 5 Mg Tab) 5 mg PO ONETIME ONE Stop: 02/23/21 10:11 Last Admin: 02/23/21 10:17 Dose: 5 mg Documented by: Oxycodone HCl (Oxycodone 5 Mg Tab) 10 mg PO Q4H PRN PRN Reason: Pain Last Admin: 02/24/21 11:34 Dose: 10 mg Documented by: Potassium Chloride (Potassium Chloride 20 Meq Tab.Er) 40 meq PO ONETIME ONE Stop: 02/22/21 08:41 Last Admin: 02/22/21 08:54 Dose: 40 meq Documented by: Sodium Chloride (Sodium Chloride 0.9% 10 Ml Syringe) 10 ml FLUSH ASDIRECTED PRN PRN Reason: Keep Vein Open Last Admin: 02/20/21 15:47 Dose: 10 ml Documented by: Sodium Chloride (Sodium Chloride 0.9% 2.5 Ml Syringe) 2.5 ml FLUSH ASDIRECTED PRN PRN Reason: Keep Vein Open Last Admin: 02/20/21 15:47 Dose: 2.5 ml Documented by: Tacrolimus (Tacrolimus 0.75 Mg CapOwn Med) 0 mg PO DAILY [facility] Last Admin: 02/21/21 02:18 Dose: Not Given Documented by: Tacrolimus (Tacrolimus 0.75 Mg CapOwn Med) 0 mg PO DAILY [facility] Last Admin: 02/21/21 10:12 Dose: Not Given Documented by: - Exam Quality Assessment: Supplemental Oxygen Urinary Catheter Total Time: 4Days 2Hours General: Alert, Oriented Lungs: Normal Respiratory Effort, Crackles Cardiovascular: Regular Rate, Regular Rhythm GI/Abdominal Exam: Normal Bowel Sounds, Soft, Non-Tender Extremities: Normal Inspection, Normal Range of Motion, Pedal Edema - Patient Data Lab Results Last 24 hrs: Laboratory Results - last 24 hr 02/25/21 02/25/21 Range/Units 06:30 06:30 WBC 3.98 L (4.0-11.0) K/uL RBC 3.37 L (4.50-5.90) M/uL Hgb 10.5 L (13.0-17.0) g/dL Hct 32.9 L (38.0-50.0) % MCV 97.6 (80.0-98.0) fL MCH 31.2 (27.0-32.0) pg MCHC 31.9 (31.0-37.0) g/dL RDW Std Deviation 64.1 H (28.0-62.0) fl RDW Coeff of Uday 18 H (11.0-15.0) % Plt Count 154 (150-400) K/uL MPV 11.30 (7.40-12.00) fL Neut % (Auto) 68.3 (48.0-80.0) % Lymph % (Auto) 16.3 (16.0-40.0) % [place] % (Auto) 12.6 (0.0-15.0) % Eos % (Auto) 2.3 (0.0-7.0) % Baso % (Auto) 0.5 (0.0-1.5) % Neut # (Auto) 2.7 (1.4-5.7) K/uL Lymph # (Auto) 0.7 (0.6-2.4) K/uL [place] # (Auto) 0.5 (0.0-0.8) K/uL Eos # (Auto) 0.1 (0.0-0.7) K/uL Baso # (Auto) 0.0 (0.0-0.1) K/uL Nucleated RBC % 0.0 /100WBC Nucleated RBCs # 0 K/uL Sodium 135 L (136-148) mmol/L Potassium 3.6 (3.5-5.1) mmol/L Chloride 94 L (98-107) mmol/L Carbon Dioxide 36.7 H (21.0-32.0) mmol/L BUN 64 H (7.0-18.0) mg/dL Creatinine 2.0 H (0.8-1.3) mg/dL Est Cr Clr Drug Dosing 39.43 mL/min Estimated GFR (MDRD) 34.6 ml/min Glucose 119 H (74-106) mg/dL Calcium 8.8 (8.5-10.1) mg/dL Phosphorus 5.4 H (2.6-4.7) mg/dL Magnesium 2.4 (1.8-2.4) mg/dL Total Bilirubin 0.5 (0.2-1.0) mg/dL AST 24 (15-37) IU/L ALT 28 (14-63) IU/L Alkaline Phosphatase 77 (46-116) U/L Total Protein 7.4 (6.4-8.2) g/dL Albumin 3.1 L (3.4-5.0) g/dL Globulin 4.3 H (2.6-4.0) g/dL Albumin/Globulin Ratio 0.7 L (0.9-1.6) Result Diagrams: 02/25/21 06:30 02/25/21 06:30 Eris Results Last 24 hrs: Microbiology 02/21/21 13:41 Aerobic Blood Culture - Preliminary Blood - Venous - Lab Draw NO GROWTH AFTER 4 DAYS Anaerobic Blood Culture - Preliminary NO GROWTH AFTER 4 DAYS 02/21/21 13:27 Aerobic Blood Culture - Preliminary Blood - Venous NO GROWTH AFTER 4 DAYS Anaerobic Blood Culture - Preliminary NO GROWTH AFTER 4 DAYS Sepsis Event Note - Evaluation Sepsis Screening Result: No Definite Risk - Focused Exam Vital Signs: Vital Signs Temp Pulse Resp BP Pulse Ox 02/25/21 11:04 36.2 C 84 17 111/68 91 L 02/25/21 08:00 36.2 C 91 17 105/60 91 L 02/25/21 04:46 36.6 C 99 16 100/61 90 L - Problem List & Annotations (1) Acute on chronic respiratory failure with hypoxia and hypercapnia SNOMED Code(s): 32756738555530 Code(s): J96.21 - ACUTE AND CHRONIC RESPIRATORY FAILURE WITH HYPOXIA; J96.22 - ACUTE AND CHRONIC RESPIRATORY FAILURE WITH HYPERCAPNIA Status: Acute Current Visit: Yes (2) Bilateral lower extremity edema SNOMED Code(s): 330159687, 85170563, 254362420 Code(s): R60.0 - LOCALIZED EDEMA Status: Acute Current Visit: Yes (3) Diastolic heart failure SNOMED Code(s): 160297809 Code(s): I50.30 - UNSPECIFIED DIASTOLIC (CONGESTIVE) HEART FAILURE Status: Acute Current Visit: Yes Qualifiers: Heart failure chronicity: acute on chronic Qualified Code(s): I50.33 - Acute on chronic diastolic (congestive) heart failure (4) Shingles SNOMED Code(s): 6030002 Code(s): B02.9 - ZOSTER WITHOUT COMPLICATIONS Status: Acute Current Visit: Yes Qualifiers: Herpes zoster complications: without complications Qualified Code(s): B02.9 - Zoster without complications (5) Asthma SNOMED Code(s): 105418421 Code(s): J45.909 - UNSPECIFIED ASTHMA, UNCOMPLICATED Status: Chronic Current Visit: Yes Qualifiers: Asthma severity: mild Asthma persistence: intermittent (6) CKD (chronic kidney disease) SNOMED Code(s): 862561978 Code(s): N18.9 - CHRONIC KIDNEY DISEASE, UNSPECIFIED Status: Chronic Current Visit: Yes (7) Immunosuppression SNOMED Code(s): 51783008 Code(s): D84.9 - IMMUNODEFICIENCY, UNSPECIFIED Status: Chronic Current Visit: Yes (8) Liver transplant recipient SNOMED Code(s): 174622154 Code(s): Z94.4 - LIVER TRANSPLANT STATUS Status: Chronic Current Visit: Yes (9) Oxygen dependent SNOMED Code(s): 836095483041 Code(s): Z99.81 - DEPENDENCE ON SUPPLEMENTAL OXYGEN Status: Chronic Current Visit: Yes (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 Status: Chronic Current Visit: Yes (11) S/P TIPS (transjugular intrahepatic portosystemic shunt) SNOMED Code(s): 889830128, 644940617 Code(s): Z95.828 - PRESENCE OF OTHER VASCULAR IMPLANTS AND GRAFTS Status: Chronic Current Visit: Yes (12) Post herpetic neuralgia SNOMED Code(s): 8597475 Code(s): B02.29 - OTHER POSTHERPETIC NERVOUS SYSTEM INVOLVEMENT Status: Acute Current Visit: No - Problem List Review Problem List Initiated/Reviewed/Updated: Yes - My Orders Last 24 Hours: My Active Orders 02/24/21 15:00 oxyCODONE 10 mg PO Q3H PRN 02/25/21 21:00 Furosemide [Lasix] 40 mg IVPUSH BID - Plan Plan:: 55-year-old admitted for acute on chronic hypercapnic hypoxic respiratory failure most likely secondary to acute diastolic CHF exacerbation 1. Acute on chronic hypercapnic hypoxic respiratory failure -Improving, weaning oxygen now at 3 L NC -Chest CT revealed pulmonary edema no infectious process. Will continue diuresis -Hypercapnia stable, likely chronic in nature -Continue nasal cannula 3 to 4 L per home dose at this time, reports he isn't always on oxygen but unsure of normal oxygen sats without oxygen at home. -Albuterol as needed -Reviewed records from [facility] in [facility] he did have a PFT which showed mixed disorder suggesting some obstructive and restrictive components. Respiratory muscle strength appears to be slightly reduced both expiratory and inspiratory. 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 2. Acute on chronic diastolic CHF exacerbation -Echo EF 60%. Normal left ventricular systolic function, mild concentric LVH normal LV diastolic filling normal right ventricular size, wall thickness and systolic function. Trace aortic and mitral valve regurgitation trace tricuspid valve regurgitation right ventricular systolic pressure borderline at 26.6 no regional wall motion abnormalities. Has had history of diminished right jugular systolic function. -Will decrease Lasix to 40mg IV, [employer]. has bumped up a little -Continue [place] for strict I's and O's -Low-sodium diet 1.8 L fluid restriction, encouraged to monitor fluids more -Daily weight, which has improved today -Peripheral edema could be related to recent dexamethasone use as well. -BNP 15 3. Shingles herpetic neuralgia -Gabapentin 300 mg BID -cont oxycodone 10 mg every 3h, monitor mental status, tolerating it well, pain is much better controlled -Tylenol total of 3 g daily as needed -Continue antiviral medication 4. Renal/liver transplant recipient -Renal function within baseline. 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 Likely chronic finding as collaterals have been established VTE prophylaxis: Heparin CODE STATUS: Full code Dispo: 1-2 days pending improvement, possible dc tomorrow if remains stable Crystal, transplant liaison at [facility] with Dr. Zafar is able to be reached at .
[2021-02-25] MEDS ORDERED: Furosemide 40 MG/4 ML VIAL IVPUSH SCH (21:00)
[2021-02-26] MEDS: oxyCODONE 5 MG Tab PO PRN ×6 (01:38→19:26)
[2021-02-26] MEDS: Albuterol 0.083% 2.5 MG/3 ML Neb Soln NEB PRN ×3 (01:38→18:39)
[2021-02-26 06:12] LABS: CARBON DIOXIDE,CO2 40.8 mmol/L (21.0-32.0); POTASSIUM,K 4.1 mmol/L (3.5-5.1)
[2021-02-26] MEDS: TACROLIMUS 0.75 MG PO SCH (09:28)
[2021-02-26] MEDS: Gabapentin 300 MG Cap PO SCH ×2 (09:28→21:44)
[2021-02-26] MEDS: MYCOPHENOLATE MOFETIL 250 MG PO SCH ×2 (09:28→21:45)
[2021-02-26] MEDS: valACYclovir 500 MG Tab PO SCH (09:28)
[2021-02-26] MEDS: Heparin Sodium 5,000 Units/ML Vial SUBCUT SCH ×2 (10:09→21:44)
--- NOTE | 2021-02-26 10:39 | PCM.PN ---
- General Info Date of Service: 02/26/21 Admission Dx/Problem (Free Text): Admission Diagnosis/Problem Admission Diagnosis/Problem acute on chronic hypercapnic hypoxic respiratory failure, possible CHF diastolic exacerbation Subjective Update: Reports he is feeling better today. Much more alert having better pain control and oxycodone. Denies any chest pain. Reports shortness of breath which is slowly improving. Continues to report peripheral edema and abdominal fullness. at bedside. Functional Status: Reports: Pain Controlled, Tolerating Diet, Ambulating - Review of Systems General: Reports: No Symptoms. Denies: Fatigue HEENT: Reports: No Symptoms. Denies: Headaches, Sore Throat, Visual Changes Pulmonary: Reports: Shortness of Breath Cardiovascular: Reports: Edema. Denies: Chest Pain Gastrointestinal: Reports: No Symptoms. Denies: Abdominal Pain, Nausea, Vomiting Genitourinary: Reports: No Symptoms Musculoskeletal: Reports: No Symptoms Skin: Reports: No Symptoms Neurological: Reports: No Symptoms Psychiatric: Reports: No Symptoms - Patient Data Vitals - Most Recent: Last Vital Signs Temp 97.2 F 02/26/21 09:30 Pulse 92 02/26/21 09:30 Resp 17 02/26/21 09:30 BP 106/62 02/26/21 09:30 Pulse Ox 93 L 02/26/21 09:30 Weight - Most Recent: 123.695 kg I&O - Last 24 Hours: Intake & Output 02/25/21 02/26/21 02/26/21 22:59 06:59 14:59 Intake Total 750 850 Output Total 63 123 Balance 12P -36$ Lab Results Last 24 Hours: Laboratory Results - last 24 hr 02/20/21 02/26/21 02/26/21 Range/Units 16:16 05:40 05:40 WBC 4.41 (4.0-11.0) K/uL RBC 3.35 L (4.50-5.90) M/uL Hgb 10.4 L (13.0-17.0) g/dL Hct 33.0 L (38.0-50.0) % MCV 98.5 H (80.0-98.0) fL MCH 31.0 (27.0-32.0) pg MCHC 31.5 (31.0-37.0) g/dL RDW Std Deviation 66.3 H (28.0-62.0) fl RDW Coeff of Uday 19 H (11.0-15.0) % Plt Count 142 L (150-400) K/uL MPV 10.40 (7.40-12.00) fL Neut % (Auto) 65.8 (48.0-80.0) % Lymph % (Auto) 17.9 (16.0-40.0) % [place] % (Auto) 13.8 (0.0-15.0) % Eos % (Auto) 2.3 (0.0-7.0) % Baso % (Auto) 0.2 (0.0-1.5) % Neut # (Auto) 2.9 (1.4-5.7) K/uL Lymph # (Auto) 0.8 (0.6-2.4) K/uL [place] # (Auto) 0.6 (0.0-0.8) K/uL Eos # (Auto) 0.1 (0.0-0.7) K/uL Baso # (Auto) 0.0 (0.0-0.1) K/uL Nucleated RBC % 0.0 /100WBC Nucleated RBCs # 0 K/uL Sodium 136 (136-148) mmol/L Potassium 4.1 (3.5-5.1) mmol/L Chloride 93 L (98-107) mmol/L Carbon Dioxide 40.8 H (21.0-32.0) mmol/L BUN 68 H (7.0-18.0) mg/dL Creatinine 2.4 H (0.8-1.3) mg/dL Est Cr Clr Drug Dosing 32.85 mL/min Estimated GFR (MDRD) 28.0 ml/min Glucose 118 H (74-106) mg/dL Calcium 8.7 (8.5-10.1) mg/dL Phosphorus 6.6 H (2.6-4.7) mg/dL Magnesium 2.8 H (1.8-2.4) mg/dL Total Bilirubin 0.5 (0.2-1.0) mg/dL AST 29 (15-37) IU/L ALT 35 (14-63) IU/L Alkaline Phosphatase 77 (46-116) U/L Total Protein 7.5 (6.4-8.2) g/dL Albumin 3.2 L (3.4-5.0) g/dL Globulin 4.3 H (2.6-4.0) g/dL Albumin/Globulin Ratio 0.7 L (0.9-1.6) Tacrolimus 2.4 (2.0-20.0) ng/mL Eris Results Last 24 Hours: Microbiology 02/21/21 13:41 Aerobic Blood Culture - Preliminary Blood - Venous - Lab Draw NO GROWTH AFTER 4 DAYS Anaerobic Blood Culture - Preliminary NO GROWTH AFTER 4 DAYS 02/21/21 13:27 Aerobic Blood Culture - Preliminary Blood - Venous NO GROWTH AFTER 4 DAYS Anaerobic Blood Culture - Preliminary NO GROWTH AFTER 4 DAYS Med Orders - Current: Current Medications Acetaminophen (Acetaminophen 500 Mg Tab) 500 mg PO Q4H PRN PRN Reason: Pain Last Admin: 02/25/21 04:54 Dose: 500 mg Documented by: Albuterol (Albuterol 0.083% 2.5 Mg/3 Ml Neb Soln) 2.5 mg NEB Q4HRRT PRN PRN Reason: Shortness of Breath Last Admin: 02/26/21 01:38 Dose: 2.5 mg Documented by: Cetirizine HCl (Cetirizine 10 Mg Tab) 10 mg PO DAILY PRN PRN Reason: Allergies Gabapentin (Gabapentin 300 Mg Cap) 300 mg PO BID [facility] Last Admin: 02/26/21 09:28 Dose: 300 mg Documented by: Heparin Sodium (Porcine) (Heparin Sodium 5,000 Units/Ml Vial) 5,000 units SUBCUT Q12H [facility] Last Admin: 02/26/21 10:09 Dose: 5,000 units Documented by: Ondansetron HCl (Ondansetron 4 Mg/2 Ml Sdv) 4 mg IVPUSH Q4H PRN PRN Reason: Nausea/Vomiting Oxycodone HCl (Oxycodone 5 Mg Tab) 5 - 10 mg PO Q3H PRN PRN Reason: Pain Tacrolimus 0.75 Mg (Er Tablets) 2 each PO DAILY [facility] Last Admin: 02/26/21 09:28 Dose: 2 each Documented by: Mycophenolate Mofetil 250 Mg Cap * Own Med 1 each PO BID [facility] Last Admin: 02/26/21 09:28 Dose: 1 each Documented by: Polyethylene Glycol (Polyethylene Glycol 3350 Powder 17 Gm Packet) 17 gm PO DAILY PRN PRN Reason: Constipation Last Admin: 02/25/21 09:02 Dose: 17 gm Documented by: Sodium Chloride (Sodium Chloride 0.9% 2.5 Ml Syringe) 2.5 ml FLUSH ASDIRECTED PRN PRN Reason: Keep Vein Open Sodium Chloride (Sodium Chloride 0.65% Nasal Teaberry 45 Ml Bottle) 0 ml RASHMI Q4H PRN PRN Reason: nasal dryness/congestion Last Admin: 02/22/21 20:39 Dose: 2 spray Documented by: Valacyclovir HCl (Valacyclovir 500 Mg Tab) 1,000 mg PO DAILY [facility] Last Admin: 02/26/21 09:28 Dose: 1,000 mg Documented by: Discontinued Medications Acetaminophen (Acetaminophen 500 Mg Tab) 1,000 mg PO ONETIME ONE Stop: 02/21/21 09:01 Last Admin: 02/21/21 09:00 Dose: 1,000 mg Documented by: Acetaminophen (Acetaminophen 500 Mg Tab) 1,000 mg PO Q8H PRN PRN Reason: Pain Last Admin: 02/22/21 01:00 Dose: 1,000 mg Documented by: Acetazolamide (Acetazolamide 250 Mg Tab) 500 mg PO ONETIME ONE Stop: 02/21/21 17:01 Last Admin: 02/21/21 17:16 Dose: 500 mg Documented by: Albuterol (Albuterol 0.083% 2.5 Mg/3 Ml Neb Soln) Confirm Administered Dose 2.5 mg .ROUTE .STK-MED ONE Stop: 02/20/21 23:11 Last Admin: 02/20/21 23:19 Dose: 2.5 mg Documented by: Albuterol/Ipratropium (Albuterol/Ipratropium 3.0-0.5 Mg/3 Ml Neb Soln) 3 ml NEB Q4HRRT PRN PRN Reason: Shortness Of Breath/wheezing Azithromycin (Azithromycin 500 Mg Vial) 250 mg IV Q24H [facility] Last Admin: 02/20/21 22:40 Dose: Not Given Documented by: Ceftriaxone Sodium (Ceftriaxone 1 Gm Vial) 1 gm IVPUSH Q24H [facility] Last Admin: 02/20/21 22:54 Dose: Not Given Documented by: Furosemide (Furosemide 40 Mg/4 Ml Vial) 20 mg IVPUSH NOW ONE Stop: 02/20/21 16:25 Last Admin: 02/20/21 16:54 Dose: 20 mg Documented by: Furosemide (Furosemide 40 Mg/4 Ml Vial) 40 mg IVPUSH BID [facility] Last Admin: 02/23/21 09:11 Dose: 40 mg Documented by: Furosemide (Furosemide 40 Mg/4 Ml Vial) 40 mg IVPUSH TID [facility] Last Admin: 02/25/21 06:24 Dose: 40 mg Documented by: Furosemide (Furosemide 40 Mg/4 Ml Vial) 40 mg IVPUSH BID [facility] Last Admin: 02/25/21 20:58 Dose: 40 mg Documented by: Heparin Sodium (Porcine) (Heparin Sodium 5,000 Units/Ml Vial) 5,000 units SUBCUT Q8H [facility] Last Admin: 02/22/21 04:31 Dose: Not Given Documented by: Azithromycin 500 mg/ Sodium (Chloride) 250 mls @ 250 mls/hr IV ONETIME [facility] Last Admin: 02/20/21 22:10 Dose: 250 mls/hr Documented by: Ceftriaxone Sodium/Dextrose 1 (gm/ Premix) 50 mls @ 100 mls/hr IV Q24H [facility] Last Admin: 02/21/21 22:53 Dose: 100 mls/hr Documented by: Azithromycin 500 mg/ Sodium (Chloride) 250 mls @ 250 mls/hr IV Q24H [facility] Last Admin: 02/21/21 20:42 Dose: 250 mls/hr Documented by: Lidocaine (Lidocaine 5% 700 Mg Patch) 700 mg TRDERM Q24H [facility] Last Admin: 02/22/21 09:01 Dose: Not Given Documented by: Metolazone (Metolazone 5 Mg Tab) 2.5 mg PO ONETIME ONE Stop: 02/23/21 09:55 Last Admin: 02/23/21 11:25 Dose: Not Given Documented by: Metolazone (Metolazone 5 Mg Tab) 2.5 mg PO ONETIME ONE Stop: 02/23/21 13:31 Last Admin: 02/23/21 13:35 Dose: 2.5 mg Documented by: Miscellaneous Information (Remove Patch) 1 ea TRDERM Q24H [facility] Last Admin: 02/21/21 21:03 Dose: Not Given Documented by: Morphine Sulfate (Morphine 2 Mg/Ml Syringe) 2 mg IVPUSH ONETIME ONE Stop: 02/20/21 18:14 Last Admin: 02/20/21 18:18 Dose: 2 mg Documented by: Morphine Sulfate (Morphine 2 Mg/Ml Syringe) 1 mg IVPUSH Q4H PRN PRN Reason: Pain Last Admin: 02/21/21 12:54 Dose: 1 mg Documented by: Mycophenolate Mofetil (Mycophenolate Mofetil 250 Mg Cap Own Med) 250 mg PO BID [facility] Last Admin: 02/21/21 10:14 Dose: Not Given Documented by: Oxycodone HCl (Oxycodone 5 Mg Tab) 5 mg PO Q4H PRN PRN Reason: Pain Last Admin: 02/23/21 09:11 Dose: 5 mg Documented by: Oxycodone HCl (Oxycodone 5 Mg Tab) 5 mg PO ONETIME ONE Stop: 02/23/21 10:11 Last Admin: 02/23/21 10:17 Dose: 5 mg Documented by: Oxycodone HCl (Oxycodone 5 Mg Tab) 10 mg PO Q4H PRN PRN Reason: Pain Last Admin: 02/24/21 11:34 Dose: 10 mg Documented by: Oxycodone HCl (Oxycodone 5 Mg Tab) 10 mg PO Q3H PRN PRN Reason: Pain Last Admin: 02/26/21 10:08 Dose: 5 mg Documented by: Potassium Chloride (Potassium Chloride 20 Meq Tab.Er) 40 meq PO ONETIME ONE Stop: 02/22/21 08:41 Last Admin: 02/22/21 08:54 Dose: 40 meq Documented by: Sodium Chloride (Sodium Chloride 0.9% 10 Ml Syringe) 10 ml FLUSH ASDIRECTED PRN PRN Reason: Keep Vein Open Last Admin: 02/20/21 15:47 Dose: 10 ml Documented by: Sodium Chloride (Sodium Chloride 0.9% 2.5 Ml Syringe) 2.5 ml FLUSH ASDIRECTED PRN PRN Reason: Keep Vein Open Last Admin: 02/20/21 15:47 Dose: 2.5 ml Documented by: Tacrolimus (Tacrolimus 0.75 Mg CapOwn Med) 0 mg PO DAILY [facility] Last Admin: 02/21/21 02:18 Dose: Not Given Documented by: Tacrolimus (Tacrolimus 0.75 Mg CapOwn Med) 0 mg PO DAILY [facility] Last Admin: 02/21/21 10:12 Dose: Not Given Documented by: - Exam Quality Assessment: Supplemental Oxygen (3.5 L), DVT Prophylaxis Urinary Catheter Total Time: 4Days 20Hours General: Alert, Oriented, Cooperative, No Acute Distress Neck: Supple Lungs: Normal Respiratory Effort, Crackles (Bibasilar) Cardiovascular: Regular Rate, Regular Rhythm GI/Abdominal Exam: Normal Bowel Sounds, Soft, Non-Tender, Other (Anasarca noted abdomen and pannus) Extremities: Normal Inspection, Normal Range of Motion, Non-Tender, Pedal Edema (+2 pitting edema bilaterally) Neurological: No New Focal Deficit Psy/Mental Status: Alert, Normal Affect, Normal Mood - Patient Data Lab Results Last 24 hrs: Laboratory Results - last 24 hr 02/20/21 02/26/21 02/26/21 Range/Units 16:16 05:40 05:40 WBC 4.41 (4.0-11.0) K/uL RBC 3.35 L (4.50-5.90) M/uL Hgb 10.4 L (13.0-17.0) g/dL Hct 33.0 L (38.0-50.0) % MCV 98.5 H (80.0-98.0) fL MCH 31.0 (27.0-32.0) pg MCHC 31.5 (31.0-37.0) g/dL RDW Std Deviation 66.3 H (28.0-62.0) fl RDW Coeff of Uday 19 H (11.0-15.0) % Plt Count 142 L (150-400) K/uL MPV 10.40 (7.40-12.00) fL Neut % (Auto) 65.8 (48.0-80.0) % Lymph % (Auto) 17.9 (16.0-40.0) % [place] % (Auto) 13.8 (0.0-15.0) % Eos % (Auto) 2.3 (0.0-7.0) % Baso % (Auto) 0.2 (0.0-1.5) % Neut # (Auto) 2.9 (1.4-5.7) K/uL Lymph # (Auto) 0.8 (0.6-2.4) K/uL [place] # (Auto) 0.6 (0.0-0.8) K/uL Eos # (Auto) 0.1 (0.0-0.7) K/uL Baso # (Auto) 0.0 (0.0-0.1) K/uL Nucleated RBC % 0.0 /100WBC Nucleated RBCs # 0 K/uL Sodium 136 (136-148) mmol/L Potassium 4.1 (3.5-5.1) mmol/L Chloride 93 L (98-107) mmol/L Carbon Dioxide 40.8 H (21.0-32.0) mmol/L BUN 68 H (7.0-18.0) mg/dL Creatinine 2.4 H (0.8-1.3) mg/dL Est Cr Clr Drug Dosing 32.85 mL/min Estimated GFR (MDRD) 28.0 ml/min Glucose 118 H (74-106) mg/dL Calcium 8.7 (8.5-10.1) mg/dL Phosphorus 6.6 H (2.6-4.7) mg/dL Magnesium 2.8 H (1.8-2.4) mg/dL Total Bilirubin 0.5 (0.2-1.0) mg/dL AST 29 (15-37) IU/L ALT 35 (14-63) IU/L Alkaline Phosphatase 77 (46-116) U/L Total Protein 7.5 (6.4-8.2) g/dL Albumin 3.2 L (3.4-5.0) g/dL Globulin 4.3 H (2.6-4.0) g/dL Albumin/Globulin Ratio 0.7 L (0.9-1.6) Tacrolimus 2.4 (2.0-20.0) ng/mL Result Diagrams: 02/26/21 05:40 02/26/21 05:40 Eris Results Last 24 hrs: Microbiology 02/21/21 13:41 Aerobic Blood Culture - Preliminary Blood - Venous - Lab Draw NO GROWTH AFTER 4 DAYS Anaerobic Blood Culture - Preliminary NO GROWTH AFTER 4 DAYS 02/21/21 13:27 Aerobic Blood Culture - Preliminary Blood - Venous NO GROWTH AFTER 4 DAYS Anaerobic Blood Culture - Preliminary NO GROWTH AFTER 4 DAYS Sepsis Event Note - Evaluation Sepsis Screening Result: No Definite Risk - Focused Exam Vital Signs: Vital Signs Temp Pulse Resp BP Pulse Ox 02/26/21 09:30 97.2 F 92 17 106/62 93 L 06/14/21 04:00 96.9 F 96 17 111/75 02/26/21 00:00 96.4 F L 94 17 144/82 H - Problem List & Annotations (1) Acute on chronic respiratory failure with hypoxia and hypercapnia SNOMED Code(s): 58852687009568 Code(s): J96.21 - ACUTE AND CHRONIC RESPIRATORY FAILURE WITH HYPOXIA; J96.22 - ACUTE AND CHRONIC RESPIRATORY FAILURE WITH HYPERCAPNIA Status: Acute Current Visit: Yes (2) Encephalopathy SNOMED Code(s): 65477618 Code(s): G93.40 - ENCEPHALOPATHY, UNSPECIFIED Status: Acute Current Visit: No (3) Pulmonary edema SNOMED Code(s): 55468493 Code(s): J81.1 - CHRONIC PULMONARY EDEMA Status: Acute Current Visit: Yes Qualifiers: Chronicity: acute Qualified Code(s): J81.0 - Acute pulmonary edema (4) Dyspnea SNOMED Code(s): 958638195 Code(s): R06.00 - DYSPNEA, UNSPECIFIED Status: Acute Current Visit: Yes Qualifiers: Dyspnea type: dyspnea on exertion Qualified Code(s): R06.00 - Dyspnea, unspecified (5) Bilateral lower extremity edema SNOMED Code(s): 392358961, 53753923, 502374893 Code(s): R60.0 - LOCALIZED EDEMA Status: Acute Current Visit: Yes (6) Shingles SNOMED Code(s): 0550587 Code(s): B02.9 - ZOSTER WITHOUT COMPLICATIONS Status: Acute Current Visit: Yes Qualifiers: Herpes zoster complications: without complications Qualified Code(s): B02.9 - Zoster without complications (7) Post herpetic neuralgia SNOMED Code(s): 3835279 Code(s): B02.29 - OTHER POSTHERPETIC NERVOUS SYSTEM INVOLVEMENT Status: Acute Current Visit: No (8) Diastolic heart failure SNOMED Code(s): 831639527 Code(s): I50.30 - UNSPECIFIED DIASTOLIC (CONGESTIVE) HEART FAILURE Status: Acute Current Visit: Yes Qualifiers: Heart failure chronicity: acute on chronic Qualified Code(s): I50.33 - Acute on chronic diastolic (congestive) heart failure (9) Immunosuppression SNOMED Code(s): 59701525 Code(s): D84.9 - IMMUNODEFICIENCY, UNSPECIFIED Status: Chronic Current Visit: Yes (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 Status: Chronic Current Visit: Yes (11) Liver transplant recipient SNOMED Code(s): 032349925 Code(s): Z94.4 - LIVER TRANSPLANT STATUS Status: Chronic Current Visit: Yes (12) S/P TIPS (transjugular intrahepatic portosystemic shunt) SNOMED Code(s): 087926891, 033779050 Code(s): Z95.828 - PRESENCE OF OTHER VASCULAR IMPLANTS AND GRAFTS Status: Chronic Current Visit: Yes (13) Depression SNOMED Code(s): 06502438 Code(s): F32.9 - MAJOR DEPRESSIVE DISORDER, SINGLE EPISODE, UNSPECIFIED Status: Chronic Current Visit: Yes Qualifiers: Depression Type: unspecified Qualified Code(s): F32.9 - Major depressive disorder, single episode, unspecified (14) Obesity SNOMED Code(s): 086177395, 481264567 Code(s): E66.9 - OBESITY, UNSPECIFIED Status: Chronic Current Visit: Yes (15) CKD (chronic kidney disease) SNOMED Code(s): 656803082 Code(s): N18.9 - CHRONIC KIDNEY DISEASE, UNSPECIFIED Status: Chronic Current Visit: Yes (16) Asthma SNOMED Code(s): 426587545 Code(s): J45.909 - UNSPECIFIED ASTHMA, UNCOMPLICATED Status: Chronic Current Visit: Yes Qualifiers: Asthma severity: mild Asthma persistence: intermittent (17) Oxygen dependent SNOMED Code(s): 425224531114 Code(s): Z99.81 - DEPENDENCE ON SUPPLEMENTAL OXYGEN Status: Chronic Current Visit: Yes (18) Esophageal varices SNOMED Code(s): 61151537 Code(s): I85.00 - ESOPHAGEAL VARICES WITHOUT BLEEDING Status: Chronic Current Visit: No Onset Date: 09/03/14 (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 Acute on chronic hypercapnic hypoxic respiratory failure -Improving, weaning oxygen now at 3 L NC -Chest CT revealed pulmonary edema no infectious process. -Diuresis on hold today due to bump in creatinine to 2.4 -Hypercapnia stable, likely chronic in nature -Albuterol as needed -[facility]ed records from [facility] he did have a PFT which showed mixed disorder suggesting some obstructive and restrictive components. Respiratory muscle strength appears to be slightly reduced both expiratory and inspiratory. 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 2. Acute on chronic diastolic CHF exacerbation -Echo EF 60%. Normal left ventricular systolic function, mild concentric LVH normal LV diastolic filling normal right ventricular size, wall thickness and systolic function. Trace aortic and mitral valve regurgitation trace tricuspid valve regurgitation right ventricular systolic pressure borderline at 26.6 no regional wall motion abnormalities. Has had history of diminished right jugular systolic function. -Hold Lasix today as creatinine bumped from 2.0 to 2.4. Transplant team aware. -DC Burrows -Low-sodium diet 1.8 L fluid restriction, encouraged to monitor fluids more -Daily weight, which has improved today -Peripheral edema could be related to recent dexamethasone use as well. -BNP 15 3. Shingles herpetic neuralgia -Gabapentin 300 mg BID -cont oxycodone 5-10 mg every 3h -Mental status much improved, tolerate opioids well. -Tylenol total of 3 g daily as needed -Continue antiviral medication 4. Renal/liver transplant recipient -Renal function within baseline. 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 Likely chronic finding as collaterals have been established -I was able to speak with Codie liaison of transplant team today regarding IVC occlusion finding on CT and if this was chronic or a new finding. She spoke with Dr. Zafar and it appears that this is likely a new finding and he requested patient to be transferred to their facility for further evaluation and management. Transfer was attempted but at this time [facility] has no bed availability and they do not want him to go to any other surrounding facility as transplant team would not be available to him. Patient otherwise stable. Patient and children updated they are okay with transfer when possible. Will obtain CT abdomen pelvis without contrast to further evaluate IVC but unable to use contrast due to renal function. Plan to speak with vascular surgeon for any interventions or treatments to be started while he is awaiting transfer in our facility. VTE prophylaxis: Heparin CODE STATUS: Full code Dispo: Transfer when bed opens at [facility] I did speak with Dr. Huerta, patient's PCP and updated him on new findings of CT and plans for transfer. Codie transplant liaison at of with Dr. Zafar is able to be reached at .
--- NOTE | 2021-02-26 15:22 | CT ---
INDICATION: IVC occlusion TECHNIQUE: CT abdomen and pelvis without contrast. COMPARISON: Chest CT February 22, 2021 FINDINGS: Lower chest: Bilateral gynecomastia. Linear atelectasis at the right lung base. Coronary artery calcifications. Liver: Simple cysts in the liver. Spleen: The spleen measures 17.7 cm length. Pancreas: Unremarkable. Gallbladder and bile ducts: Unremarkable. Adrenal glands: Unremarkable. Kidneys: Bilateral renal atrophy. Left lower quadrant renal transplant. GI tract: Embolization coils at the gastroesophageal junction. Surgical suture in the midtransverse colon. Appendix is normal. Vascular structures: Wall calcification of the IVC at the level the liver. Multiple collateral vessels in the subcutaneous fat the abdominal and chest. Lymph nodes: Unremarkable. Miscellaneous: Right inguinal hernia containing fat and normal appearing loops of bowel. Small fat containing left inguinal hernia. No free air or significant free fluid. Pelvic Organs: Small amount of air in the urinary bladder. Bones: Serpiginous densities in both femoral heads. IMPRESSION: Wall calcification of the IVC. IVC thrombus cannot be excluded. Multiple collateral vessels in the subcutaneous fat of the lower chest and abdominal wall. Consider IV contrast-enhanced CT or venogram for evaluation of possible IVC thrombus. Air in the urinary bladder may be secondary to infection or recent instrumentation. Splenomegaly. Bilateral gynecomastia. Coronary artery disease. Bilateral renal atrophy with left lower quadrant renal transplant. Embolization coils at the GE junction. Right inguinal hernia containing fat and normal appearing loops of bowel. Small fat containing left inguinal hernia. Please note that all CT scans at this facility use dose modulation, iterative reconstruction, and/or weight-based dosing when appropriate to reduce radiation dose to as low as reasonably achievable. Dictated by Bozena Castillo MD @ 02/26/2021 3:20:[address] Bozena Castillo @ Feb 26 2021 3:20PM
--- NOTE | 2021-02-26 16:24 | PCM.SN.2 ---
- Free Text/Narrative Note: Spoke with Dr. Lewis, vascular surgeon at [facility] regarding CAT scan findings of IVC calcification with collaterals noted. She felt this is likely chronic finding due to the signs of collateral being present and calcification. She reports that she would recommend ultrasound duplex to check patency and flow which would better examine this than CT scan. She reports that other than that she would not do anything further for this gentleman besides the leg compression to improve vascular return. She also would consider anticoagulation as well. Transplant liaison gone for the day will reach out to them in the morning and speak with Dr. Zafar, community arts centre manager regarding these findings and if transfer is still necessary. Will update family. Updated Dr. Waddell regarding findings and discussion with Dr. Lewis.
[2021-02-26] MEDS: Polyethylene Glycol 3350 Powder 17 GM Packet PO PRN (21:44)
[2021-02-27] MEDS: oxyCODONE 5 MG Tab PO PRN ×3 (01:38→18:44)
[2021-02-27] MEDS: Albuterol 0.083% 2.5 MG/3 ML Neb Soln NEB PRN ×4 (01:38→22:33)
[2021-02-27 06:28] LABS: CARBON DIOXIDE,CO2 35.7 mmol/L (21.0-32.0)
--- NOTE | 2021-02-27 08:14 | US ---
INDICATION: Calcification within the IVC on CT 02/26/2021 multiple venous collateral vessels in the subcutaneous fat of the abdominal and pelvic wall. Ultrasound to check patency and flow in the IVC and hepatic vasculature. Patient status post liver transplant. TECHNIQUE: Limited abdominal spectral and color Doppler evaluation of the IVC, hepatic veins, and portal venous system. FINDINGS: Exam is limited due to bowel gas. 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 The abdominal inferior vena cava could only be seen at the level of the liver due to bowel gas and where seen it is patent with flow in the appropriate direction. The calcification or high density within the IVC on recent CT could be related to prior clot/DVT or postsurgical. The right, middle, and left hepatic veins were patent with flow in the appropriate direction. The main portal vein was patent but only minimally visualized. The proximal abdominal inferior vena cava measures 1.5 cm in AP diameter which is small in caliber. Remainder of the arterial and venous vasculature was not evaluated on this exam. Remainder negative. IMPRESSION: Limited abdominal Doppler evaluation of the abdominal IVC and hepatic venous system shows the proximal abdominal inferior vena cava to be patent with flow in the appropriate direction but small in caliber. Remainder of the abdominal inferior vena cava could not be visualized due to bowel gas. The calcification or high density within the proximal abdominal inferior vena cava on recent CT could be related to prior thrombus/DVT or postsurgical in nature. The hepatic venous system is patent with flow in the appropriate direction. Where seen the mid portal venous system is patent with flow in the appropriate direction. Abdominal arterial vasculature was not evaluated on this exam. The abdominal aorta could not be visualized due to overlying bowel gas. If further evaluation of the prominent venous collaterals in the abdominal and pelvic wall diffusely is desired, a CT or MRI angiogram could be performed to further evaluate the abdominal and pelvic venous and arterial vasculature more thoroughly. Dictated by Keshav Castanon MD @ 02/27/2021 8:13:[address] Keshav Castanon @ Feb 27 2021 8:13AM
[2021-02-27] MEDS: Gabapentin 300 MG Cap PO SCH ×2 (09:17→21:00)
[2021-02-27] MEDS: valACYclovir 500 MG Tab PO SCH (09:18)
[2021-02-27] MEDS: TACROLIMUS 0.75 MG PO SCH (09:19)
[2021-02-27] MEDS: MYCOPHENOLATE MOFETIL 250 MG PO SCH ×2 (09:19→21:00)
--- NOTE | 2021-02-27 11:48 | PCM.PN ---
- General Info Date of Service: 02/27/21 Admission Dx/Problem (Free Text): Admission Diagnosis/Problem Admission Diagnosis/Problem acute on chronic hypercapnic hypoxic respiratory failure, possible CHF diastolic exacerbation Subjective Update: Patient reports he is feeling good this morning. Pain to his left shoulder and face has improved from shingles herpetic neuralgia. Denies any chest pain. Reports shortness of breath is stable remains on 3 L oxygen. Continues to have peripheral edema to lower extremities tolerating Memo wraps intermittently due to neuropathy and feet. Awaiting to hear from transplant provider. Functional Status: Reports: Pain Controlled, Tolerating Diet, Ambulating, Urinating - Review of Systems General: Reports: Fatigue HEENT: Reports: No Symptoms. Denies: Headaches, Sore Throat, Visual Changes Pulmonary: Reports: Shortness of Breath. Denies: Cough Cardiovascular: Reports: No Symptoms. Denies: Chest Pain Gastrointestinal: Reports: No Symptoms. Denies: Abdominal Pain, Nausea, Vomiting Genitourinary: Reports: No Symptoms. Denies: Dysuria, Frequency, Burning Musculoskeletal: Reports: No Symptoms Skin: Reports: No Symptoms Neurological: Reports: No Symptoms Psychiatric: Reports: No Symptoms - Patient Data Vitals - Most Recent: Last Vital Signs Temp 98.3 F 02/27/21 08:00 Pulse 102 H 02/27/21 08:00 Resp 22 H 02/27/21 08:00 BP 110/58 L 02/27/21 08:00 Pulse Ox 92 L 02/27/21 08:00 Weight - Most Recent: 123.695 kg I&O - Last 24 Hours: Intake & Output 02/26/21 02/27/21 02/27/21 22:59 06:59 14:59 Intake Total 800 720 Output Total 550 500 Balance 250 220 Lab Results Last 24 Hours: Laboratory Results - last 24 hr 02/22/21 02/27/21 02/27/21 Range/Units 07:11 05:00 05:00 WBC 4.78 (4.0-11.0) K/uL RBC 3.23 L (4.50-5.90) M/uL Hgb 10.0 L (13.0-17.0) g/dL Hct 31.6 L (38.0-50.0) % MCV 97.8 (80.0-98.0) fL MCH 31.0 (27.0-32.0) pg MCHC 31.6 (31.0-37.0) g/dL RDW Std Deviation 65.0 H (28.0-62.0) fl RDW Coeff of Uday 18 H (11.0-15.0) % Plt Count 154 (150-400) K/uL MPV 10.80 (7.40-12.00) fL Neut % (Auto) 66.7 (48.0-80.0) % Lymph % (Auto) 14.9 L (16.0-40.0) % [place] % (Auto) 16.3 H (0.0-15.0) % Eos % (Auto) 1.9 (0.0-7.0) % Baso % (Auto) 0.2 (0.0-1.5) % Neut # (Auto) 3.2 (1.4-5.7) K/uL Lymph # (Auto) 0.7 (0.6-2.4) K/uL [place] # (Auto) 0.8 (0.0-0.8) K/uL Eos # (Auto) 0.1 (0.0-0.7) K/uL Baso # (Auto) 0.0 (0.0-0.1) K/uL Nucleated RBC % 0.4 /100WBC Nucleated RBCs # 0 K/uL Sodium 134 L (136-148) mmol/L Potassium 4.0 (3.5-5.1) mmol/L Chloride 92 L (98-107) mmol/L Carbon Dioxide 35.7 H (21.0-32.0) mmol/L BUN 81 H (7.0-18.0) mg/dL Creatinine 2.3 H (0.8-1.3) mg/dL Est Cr Clr Drug Dosing 34.28 mL/min Estimated GFR (MDRD) 29.5 ml/min Glucose 107 H (74-106) mg/dL Calcium 8.9 (8.5-10.1) mg/dL Mycophenolic Acid 0.5 L (1.0-3.5) ug/mL MPA Glucuronide 18 (15-125) ug/mL Eris Results Last 24 Hours: Microbiology 02/21/21 13:41 Aerobic Blood Culture - Final Blood - Venous - Lab Draw NO GROWTH AFTER 5 DAYS Anaerobic Blood Culture - Final NO GROWTH AFTER 5 DAYS 02/21/21 13:27 Aerobic Blood Culture - Final Blood - Venous NO GROWTH AFTER 5 DAYS Anaerobic Blood Culture - Final NO GROWTH AFTER 5 DAYS Med Orders - Current: Current Medications Acetaminophen (Acetaminophen 500 Mg Tab) 500 mg PO Q4H PRN PRN Reason: Pain Last Admin: 02/25/21 04:54 Dose: 500 mg Documented by: Albuterol (Albuterol 0.083% 2.5 Mg/3 Ml Neb Soln) 2.5 mg NEB Q4HRRT PRN PRN Reason: Shortness of Breath Last Admin: 02/27/21 01:38 Dose: 2.5 mg Documented by: Cetirizine HCl (Cetirizine 10 Mg Tab) 10 mg PO DAILY PRN PRN Reason: Allergies Gabapentin (Gabapentin 300 Mg Cap) 300 mg PO BID [facility] Last Admin: 02/27/21 09:17 Dose: 300 mg Documented by: Heparin Sodium (Porcine) (Heparin Sodium 5,000 Units/Ml Vial) 5,000 units SUBCUT Q12H [facility] Last Admin: 02/26/21 21:44 Dose: 5,000 units Documented by: Ondansetron HCl (Ondansetron 4 Mg/2 Ml Sdv) 4 mg IVPUSH Q4H PRN PRN Reason: Nausea/Vomiting Oxycodone HCl (Oxycodone 5 Mg Tab) 5 - 10 mg PO Q3H PRN PRN Reason: Pain Last Admin: 02/27/21 01:38 Dose: 5 mg Documented by: Tacrolimus 0.75 Mg (Er Tablets) 2 each PO DAILY [facility] Last Admin: 02/27/21 09:19 Dose: 2 each Documented by: Mycophenolate Mofetil 250 Mg Cap * Own Med 1 each PO BID [facility] Last Admin: 02/27/21 09:19 Dose: 1 each Documented by: Polyethylene Glycol (Polyethylene Glycol 3350 Powder 17 Gm Packet) 17 gm PO DAILY PRN PRN Reason: Constipation Last Admin: 02/26/21 21:44 Dose: 17 gm Documented by: Sodium Chloride (Sodium Chloride 0.9% 2.5 Ml Syringe) 2.5 ml FLUSH ASDIRECTED PRN PRN Reason: Keep Vein Open Sodium Chloride (Sodium Chloride 0.65% Nasal Rebuck 45 Ml Bottle) 0 ml RASHMI Q4H PRN PRN Reason: nasal dryness/congestion Last Admin: 02/22/21 20:39 Dose: 2 spray Documented by: Valacyclovir HCl (Valacyclovir 500 Mg Tab) 1,000 mg PO DAILY [facility] Last Admin: 02/27/21 09:18 Dose: 1,000 mg Documented by: Discontinued Medications Acetaminophen (Acetaminophen 500 Mg Tab) 1,000 mg PO ONETIME ONE Stop: 02/21/21 09:01 Last Admin: 02/21/21 09:00 Dose: 1,000 mg Documented by: Acetaminophen (Acetaminophen 500 Mg Tab) 1,000 mg PO Q8H PRN PRN Reason: Pain Last Admin: 02/22/21 01:00 Dose: 1,000 mg Documented by: Acetazolamide (Acetazolamide 250 Mg Tab) 500 mg PO ONETIME ONE Stop: 02/21/21 17:01 Last Admin: 02/21/21 17:16 Dose: 500 mg Documented by: Albuterol (Albuterol 0.083% 2.5 Mg/3 Ml Neb Soln) Confirm Administered Dose 2.5 mg .ROUTE .STK-MED ONE Stop: 02/20/21 23:11 Last Admin: 02/20/21 23:19 Dose: 2.5 mg Documented by: Albuterol/Ipratropium (Albuterol/Ipratropium 3.0-0.5 Mg/3 Ml Neb Soln) 3 ml NEB Q4HRRT PRN PRN Reason: Shortness Of Breath/wheezing Azithromycin (Azithromycin 500 Mg Vial) 250 mg IV Q24H [facility] Last Admin: 02/20/21 22:40 Dose: Not Given Documented by: Ceftriaxone Sodium (Ceftriaxone 1 Gm Vial) 1 gm IVPUSH Q24H [facility] Last Admin: 02/20/21 22:54 Dose: Not Given Documented by: Furosemide (Furosemide 40 Mg/4 Ml Vial) 20 mg IVPUSH NOW ONE Stop: 02/20/21 16:25 Last Admin: 02/20/21 16:54 Dose: 20 mg Documented by: Furosemide (Furosemide 40 Mg/4 Ml Vial) 40 mg IVPUSH BID [facility] Last Admin: 02/23/21 09:11 Dose: 40 mg Documented by: Furosemide (Furosemide 40 Mg/4 Ml Vial) 40 mg IVPUSH TID [facility] Last Admin: 02/25/21 06:24 Dose: 40 mg Documented by: Furosemide (Furosemide 40 Mg/4 Ml Vial) 40 mg IVPUSH BID [facility] Last Admin: 02/25/21 20:58 Dose: 40 mg Documented by: Heparin Sodium (Porcine) (Heparin Sodium 5,000 Units/Ml Vial) 5,000 units SUBCUT Q8H [facility] Last Admin: 02/22/21 04:31 Dose: Not Given Documented by: Azithromycin 500 mg/ Sodium (Chloride) 250 mls @ 250 mls/hr IV ONETIME [facility] Last Admin: 02/20/21 22:10 Dose: 250 mls/hr Documented by: Ceftriaxone Sodium/Dextrose 1 (gm/ Premix) 50 mls @ 100 mls/hr IV Q24H [facility] Last Admin: 02/21/21 22:53 Dose: 100 mls/hr Documented by: Azithromycin 500 mg/ Sodium (Chloride) 250 mls @ 250 mls/hr IV Q24H [facility] Last Admin: 02/21/21 20:42 Dose: 250 mls/hr Documented by: Lidocaine (Lidocaine 5% 700 Mg Patch) 700 mg TRDERM Q24H [facility] Last Admin: 02/22/21 09:01 Dose: Not Given Documented by: Metolazone (Metolazone 5 Mg Tab) 2.5 mg PO ONETIME ONE Stop: 02/23/21 09:55 Last Admin: 02/23/21 11:25 Dose: Not Given Documented by: Metolazone (Metolazone 5 Mg Tab) 2.5 mg PO ONETIME ONE Stop: 02/23/21 13:31 Last Admin: 02/23/21 13:35 Dose: 2.5 mg Documented by: Miscellaneous Information (Remove Patch) 1 ea TRDERM Q24H [facility] Last Admin: 02/21/21 21:03 Dose: Not Given Documented by: Morphine Sulfate (Morphine 2 Mg/Ml Syringe) 2 mg IVPUSH ONETIME ONE Stop: 02/20/21 18:14 Last Admin: 02/20/21 18:18 Dose: 2 mg Documented by: Morphine Sulfate (Morphine 2 Mg/Ml Syringe) 1 mg IVPUSH Q4H PRN PRN Reason: Pain Last Admin: 02/21/21 12:54 Dose: 1 mg Documented by: Mycophenolate Mofetil (Mycophenolate Mofetil 250 Mg Cap Own Med) 250 mg PO BID [facility] Last Admin: 02/21/21 10:14 Dose: Not Given Documented by: Oxycodone HCl (Oxycodone 5 Mg Tab) 5 mg PO Q4H PRN PRN Reason: Pain Last Admin: 02/23/21 09:11 Dose: 5 mg Documented by: Oxycodone HCl (Oxycodone 5 Mg Tab) 5 mg PO ONETIME ONE Stop: 02/23/21 10:11 Last Admin: 02/23/21 10:17 Dose: 5 mg Documented by: Oxycodone HCl (Oxycodone 5 Mg Tab) 10 mg PO Q4H PRN PRN Reason: Pain Last Admin: 02/24/21 11:34 Dose: 10 mg Documented by: Oxycodone HCl (Oxycodone 5 Mg Tab) 10 mg PO Q3H PRN PRN Reason: Pain Last Admin: 02/26/21 10:08 Dose: 5 mg Documented by: Potassium Chloride (Potassium Chloride 20 Meq Tab.Er) 40 meq PO ONETIME ONE Stop: 02/22/21 08:41 Last Admin: 02/22/21 08:54 Dose: 40 meq Documented by: Sodium Chloride (Sodium Chloride 0.9% 10 Ml Syringe) 10 ml FLUSH ASDIRECTED PRN PRN Reason: Keep Vein Open Last Admin: 02/20/21 15:47 Dose: 10 ml Documented by: Sodium Chloride (Sodium Chloride 0.9% 2.5 Ml Syringe) 2.5 ml FLUSH ASDIRECTED PRN PRN Reason: Keep Vein Open Last Admin: 02/20/21 15:47 Dose: 2.5 ml Documented by: Tacrolimus (Tacrolimus 0.75 Mg CapOwn Med) 0 mg PO DAILY [facility] Last Admin: 02/21/21 02:18 Dose: Not Given Documented by: Tacrolimus (Tacrolimus 0.75 Mg CapOwn Med) 0 mg PO DAILY [facility] Last Admin: 02/21/21 10:12 Dose: Not Given Documented by: - Exam Quality Assessment: Supplemental Oxygen. No: Urine Catheter Urinary Catheter Total Time: 5Days 4Hours General: Alert, Oriented, Cooperative, No Acute Distress Lungs: Decreased Breath Sounds, Crackles (bibasilar, fine) Cardiovascular: Regular Rate, Regular Rhythm GI/Abdominal Exam: Normal Bowel Sounds, Soft, Non-Tender Back Exam: Normal Inspection, Full Range of Motion Extremities: Normal Inspection, Normal Range of Motion, Non-Tender, No Pedal Edema Wound/Incisions: Healing Well Neurological: No New Focal Deficit Psy/Mental Status: Alert, Normal Affect, Normal Mood - Patient Data Lab Results Last 24 hrs: Laboratory Results - last 24 hr 02/22/21 02/27/21 02/27/21 Range/Units 07:11 05:00 05:00 WBC 4.78 (4.0-11.0) K/uL RBC 3.23 L (4.50-5.90) M/uL Hgb 10.0 L (13.0-17.0) g/dL Hct 31.6 L (38.0-50.0) % MCV 97.8 (80.0-98.0) fL MCH 31.0 (27.0-32.0) pg MCHC 31.6 (31.0-37.0) g/dL RDW Std Deviation 65.0 H (28.0-62.0) fl RDW Coeff of Uday 18 H (11.0-15.0) % Plt Count 154 (150-400) K/uL MPV 10.80 (7.40-12.00) fL Neut % (Auto) 66.7 (48.0-80.0) % Lymph % (Auto) 14.9 L (16.0-40.0) % [place] % (Auto) 16.3 H (0.0-15.0) % Eos % (Auto) 1.9 (0.0-7.0) % Baso % (Auto) 0.2 (0.0-1.5) % Neut # (Auto) 3.2 (1.4-5.7) K/uL Lymph # (Auto) 0.7 (0.6-2.4) K/uL [place] # (Auto) 0.8 (0.0-0.8) K/uL Eos # (Auto) 0.1 (0.0-0.7) K/uL Baso # (Auto) 0.0 (0.0-0.1) K/uL Nucleated RBC % 0.4 /100WBC Nucleated RBCs # 0 K/uL Sodium 134 L (136-148) mmol/L Potassium 4.0 (3.5-5.1) mmol/L Chloride 92 L (98-107) mmol/L Carbon Dioxide 35.7 H (21.0-32.0) mmol/L BUN 81 H (7.0-18.0) mg/dL Creatinine 2.3 H (0.8-1.3) mg/dL Est Cr Clr Drug Dosing 34.28 mL/min Estimated GFR (MDRD) 29.5 ml/min Glucose 107 H (74-106) mg/dL Calcium 8.9 (8.5-10.1) mg/dL Mycophenolic Acid 0.5 L (1.0-3.5) ug/mL MPA Glucuronide 18 (15-125) ug/mL Result Diagrams: 02/27/21 05:00 02/27/21 05:00 Eris Results Last 24 hrs: Microbiology 02/21/21 13:41 Aerobic Blood Culture - Final Blood - Venous - Lab Draw NO GROWTH AFTER 5 DAYS Anaerobic Blood Culture - Final NO GROWTH AFTER 5 DAYS 02/21/21 13:27 Aerobic Blood Culture - Final Blood - Venous NO GROWTH AFTER 5 DAYS Anaerobic Blood Culture - Final NO GROWTH AFTER 5 DAYS Sepsis Event Note - Evaluation Sepsis Screening Result: No Definite Risk - Focused Exam Vital Signs: Vital Signs Temp Pulse Resp BP BP Pulse Ox 02/27/21 08:00 98.3 F 102 H 22 H 110/58 L 92 L 02/27/21 03:49 97.0 F 76 16 103/52 L 94 L 02/27/21 00:00 97.2 F 85 16 123/87 95 - Problem List & Annotations (1) Acute on chronic respiratory failure with hypoxia and hypercapnia SNOMED Code(s): 15937048342763 Code(s): J96.21 - ACUTE AND CHRONIC RESPIRATORY FAILURE WITH HYPOXIA; J96.22 - ACUTE AND CHRONIC RESPIRATORY FAILURE WITH HYPERCAPNIA Status: Acute Current Visit: Yes (2) Encephalopathy SNOMED Code(s): 25859067 Code(s): G93.40 - ENCEPHALOPATHY, UNSPECIFIED Status: Acute Current Visit: No (3) Pulmonary edema SNOMED Code(s): 27702983 Code(s): J81.1 - CHRONIC PULMONARY EDEMA Status: Acute Current Visit: Yes Qualifiers: Chronicity: acute Qualified Code(s): J81.0 - Acute pulmonary edema (4) Dyspnea SNOMED Code(s): 989296832 Code(s): R06.00 - DYSPNEA, UNSPECIFIED Status: Acute Current Visit: Yes Qualifiers: Dyspnea type: dyspnea on exertion Qualified Code(s): R06.00 - Dyspnea, unspecified (5) Bilateral lower extremity edema SNOMED Code(s): 225787064, 91686745, 388035330 Code(s): R60.0 - LOCALIZED EDEMA Status: Acute Current Visit: Yes (6) Shingles SNOMED Code(s): 6834662 Code(s): B02.9 - ZOSTER WITHOUT COMPLICATIONS Status: Acute Current Visit: Yes Qualifiers: Herpes zoster complications: without complications Qualified Code(s): B02.9 - Zoster without complications (7) Post herpetic neuralgia SNOMED Code(s): 3857510 Code(s): B02.29 - OTHER POSTHERPETIC NERVOUS SYSTEM INVOLVEMENT Status: Acute Current Visit: No (8) Diastolic heart failure SNOMED Code(s): 030978794 Code(s): I50.30 - UNSPECIFIED DIASTOLIC (CONGESTIVE) HEART FAILURE Status: Acute Current Visit: Yes Qualifiers: Heart failure chronicity: acute on chronic Qualified Code(s): I50.33 - Acute on chronic diastolic (congestive) heart failure (9) Immunosuppression SNOMED Code(s): 19212430 Code(s): D84.9 - IMMUNODEFICIENCY, UNSPECIFIED Status: Chronic Current Visit: Yes (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 Status: Chronic Current Visit: Yes (11) Liver transplant recipient SNOMED Code(s): 769520789 Code(s): Z94.4 - LIVER TRANSPLANT STATUS Status: Chronic Current Visit: Yes (12) S/P TIPS (transjugular intrahepatic portosystemic shunt) SNOMED Code(s): 809908079, 932166502 Code(s): Z95.828 - PRESENCE OF OTHER VASCULAR IMPLANTS AND GRAFTS Status: Chronic Current Visit: Yes (13) Depression SNOMED Code(s): 03570638 Code(s): F32.9 - MAJOR DEPRESSIVE DISORDER, SINGLE EPISODE, UNSPECIFIED Status: Chronic Current Visit: Yes Qualifiers: Depression Type: unspecified Qualified Code(s): F32.9 - Major depressive disorder, single episode, unspecified (14) Obesity SNOMED Code(s): 106410677, 116526748 Code(s): E66.9 - OBESITY, UNSPECIFIED Status: Chronic Current Visit: Yes (15) CKD (chronic kidney disease) SNOMED Code(s): 764560143 Code(s): N18.9 - CHRONIC KIDNEY DISEASE, UNSPECIFIED Status: Chronic Current Visit: Yes (16) Asthma SNOMED Code(s): 971350888 Code(s): J45.909 - UNSPECIFIED ASTHMA, UNCOMPLICATED Status: Chronic Current Visit: Yes Qualifiers: Asthma severity: mild Asthma persistence: intermittent (17) Oxygen dependent SNOMED Code(s): 705932305150 Code(s): Z99.81 - DEPENDENCE ON SUPPLEMENTAL OXYGEN Status: Chronic Current Visit: Yes (18) Esophageal varices SNOMED Code(s): 36587398 Code(s): I85.00 - ESOPHAGEAL VARICES WITHOUT BLEEDING Status: Chronic Current Visit: No Onset Date: 09/03/14 (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 SNOMED Code(s): 137429050 Code(s): I82.220 - ACUTE EMBOLISM AND THROMBOSIS OF INFERIOR VENA CAVA Sta tus: Suspected Current Visit: Yes - Problem List Review Problem List Initiated/Reviewed/Updated: Yes - My Orders Last 24 Hours: My Active Orders 02/28/21 05:11 BMP [BASIC METABOLIC PANEL,BMP] [CHEM] AM CBC WITH AUTO DIFF [HEME] AM 03/01/21 05:11 BMP [BASIC METABOLIC PANEL,BMP] [CHEM] AM CBC WITH AUTO DIFF [HEME] AM 03/02/21 05:11 BMP [BASIC METABOLIC PANEL,BMP] [CHEM] AM CBC WITH AUTO DIFF [HEME] AM - Plan Plan:: 55-year-old admitted for acute on chronic hypercapnic hypoxic respiratory failure most likely secondary to acute diastolic CHF exacerbation 1. Acute on chronic hypercapnic hypoxic respiratory failure -Improving, weaning oxygen now at 3 L NC -Chest CT revealed pulmonary edema no infectious process. -Diuresis on hold today due to bump in creatinine to 2.3 -Hypercapnia stable, likely chronic in nature -Albuterol as needed -Reviewed records from [facility] in [facility] he did have a PFT which showed mixed disorder suggesting some obstructive and restrictive components. Respiratory muscle strength appears to be slightly reduced both expiratory and inspiratory. 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 2. Acute on chronic diastolic CHF exacerbation -Echo EF 60%. Normal left ventricular systolic function, mild concentric LVH normal LV diastolic filling normal right ventricular size, wall thickness and systolic function. Trace aortic and mitral valve regurgitation trace tricuspid valve regurgitation right ventricular systolic pressure borderline at 26.6 no regional wall motion abnormalities. Has had history of diminished right jugular systolic function. -Hold Lasix today Cr 2.3 Transplant team aware. -Low-sodium diet 1.8 L fluid restriction, encouraged to monitor fluids more -Daily weight, which has improved today -Peripheral edema could be related to recent dexamethasone use as well. -BNP 15 3. Shingles herpetic neuralgia - Pain is steadily improving. -Gabapentin 300 mg BID -cont oxycodone 5-10 mg every 3h -Mental status much improved, tolerate opioids well. -Tylenol total of 3 g daily as needed -Continue antiviral medication 4. Renal/liver transplant recipient -Renal function within baseline. 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 Likely chronic finding as collaterals have been established -Reached out to [facility] liaison of transplant team. Discussed with her vascular surgeon recommendations along with lab work today and our plan of holding torsemide for today and likely restart in the next coming days. Unsure if transfer is still requested per transplant team as patient is steadily improving. BUN and creatinine have not increased significantly. Patient is producing urine. Family is aware we are awaiting recommendations at this time. We will continue current treatment plan until able to speak with transplant provider. 5. IVC calcification - Talked with vascular surgeon yesterday regarding IVC calcification with collaterals. Dr. Lewis felt this is likely chronic and there is nothing urgent or emergent to do currently. She recommended venous duplex to evaluate patency and flow. Ultrasound obtained which revealed abdominal inferior vena cava to be patent with flow in the appropriate direction but small in caliber. Remainder of abdominal inferior vena cava cannot be visualized due to bowel gas. Calcification or high density within the proximal abdominal inferior vena cava on recent CT could be related to prior thrombus or postsurgical in nature. Hepatic venous system is patent with flow in an appropriate direction. Mid portal venous system is patent with flow in appropriate direction. At this time will continue to encourage lower extremity compression per vascular surgeon. No thrombus noted so no anticoagulation is needed at this time. VTE prophylaxis: Heparin CODE STATUS: Full code Dispo: 1-2 days pending improvement. [facility] transplant liaison at [facility] with Dr. Zafar is able to be reached at .
[2021-02-27] MEDS: Heparin Sodium 5,000 Units/ML Vial SUBCUT SCH ×2 (12:52→21:45)
[2021-02-27] MEDS: Polyethylene Glycol 3350 Powder 17 GM Packet PO PRN (21:43)
[2021-02-28] MEDS: oxyCODONE 5 MG Tab PO PRN ×4 (01:19→22:08)
[2021-02-28 06:52] LABS: CARBON DIOXIDE,CO2 35.9 mmol/L (21.0-32.0); POTASSIUM,K 4.3 mmol/L (3.5-5.1)
[2021-02-28] MEDS: valACYclovir 500 MG Tab PO SCH (09:15)
[2021-02-28] MEDS: MYCOPHENOLATE MOFETIL 250 MG PO SCH ×2 (09:16→21:31)
[2021-02-28] MEDS: TACROLIMUS 0.75 MG PO SCH (09:17)
[2021-02-28] MEDS: Albuterol 0.083% 2.5 MG/3 ML Neb Soln NEB PRN ×3 (09:18→23:30)
[2021-02-28] MEDS: Heparin Sodium 5,000 Units/ML Vial SUBCUT SCH ×2 (10:57→21:54)
--- NOTE | 2021-02-28 12:14 | PCM.PN ---
- General Info Date of Service: 02/28/21 Admission Dx/Problem (Free Text): Admission Diagnosis/Problem Admission Diagnosis/Problem acute on chronic hypercapnic hypoxic respiratory failure, possible CHF diastolic exacerbation Subjective Update: Feeling okay today. Denies any chest pain. Reports shortness of breath is stable. Continues to need 3 L continuous oxygen. Reports edema still to his pannus as well as lower extremities. Intermittently tolerating Memo wraps to lower extremities. Eager to find out transplant team recommendations regarding transfer or close follow-up with them in [place]. Pain from herpetic neuralgia continues to steadily improve. Less severe intermittent bouts of pain noted. Functional Status: Reports: Pain Controlled, Tolerating Diet, Ambulating, Urinating - Review of Systems General: Reports: No Symptoms. Denies: Weakness, Fatigue, Malaise Pulmonary: Reports: No Symptoms. Denies: Shortness of Breath Cardiovascular: Reports: No Symptoms. Denies: Chest Pain Gastrointestinal: Reports: No Symptoms. Denies: Abdominal Pain, Nausea, Vomiting Genitourinary: Reports: No Symptoms. Denies: Dysuria, Frequency, Burning Musculoskeletal: Reports: Neck Pain (Herpetic neuralgia to the left side of neck and face. Slowly improving) Skin: Reports: No Symptoms Neurological: Reports: No Symptoms Psychiatric: Reports: No Symptoms - Patient Data Vitals - Most Recent: Last Vital Signs Temp 97.5 F 02/28/21 11:37 Pulse 86 02/28/21 11:37 Resp 16 02/28/21 11:37 BP 105/67 02/28/21 11:37 Pulse Ox 98 02/28/21 11:37 Weight - Most Recent: 123.695 kg I&O - Last 24 Hours: Intake & Output 02/27/21 02/28/21 02/28/21 22:59 06:59 14:59 Intake Total 650 500 Output Total 300 500 Balance 350 0 Lab Results Last 24 Hours: Laboratory Results - last 24 hr 02/28/21 02/28/21 Range/Units 05:05 05:05 WBC 4.76 (4.0-11.0) K/uL RBC 3.10 L (4.50-5.90) M/uL Hgb 9.6 L (13.0-17.0) g/dL Hct 29.9 L (38.0-50.0) % MCV 96.5 (80.0-98.0) fL MCH 31.0 (27.0-32.0) pg MCHC 32.1 (31.0-37.0) g/dL RDW Std Deviation 64.9 H (28.0-62.0) fl RDW Coeff of Uday 19 H (11.0-15.0) % Plt Count 162 (150-400) K/uL MPV 10.90 (7.40-12.00) fL Neut % (Auto) 61.2 (48.0-80.0) % Lymph % (Auto) 20.8 (16.0-40.0) % Buchanan % (Auto) 15.5 H (0.0-15.0) % Eos % (Auto) 2.3 (0.0-7.0) % Baso % (Auto) 0.2 (0.0-1.5) % Neut # (Auto) 2.9 (1.4-5.7) K/uL Lymph # (Auto) 1.0 (0.6-2.4) K/uL Buchanan # (Auto) 0.7 (0.0-0.8) K/uL Eos # (Auto) 0.1 (0.0-0.7) K/uL Baso # (Auto) 0.0 (0.0-0.1) K/uL Nucleated RBC % 0.5 /100WBC Nucleated RBCs # 0 K/uL Sodium 132 L (136-148) mmol/L Potassium 4.3 (3.5-5.1) mmol/L Chloride 92 L (98-107) mmol/L Carbon Dioxide 35.9 H (21.0-32.0) mmol/L BUN 88 H (7.0-18.0) mg/dL Creatinine 2.3 H (0.8-1.3) mg/dL Est Cr Clr Drug Dosing 34.28 mL/min Estimated GFR (MDRD) 29.5 ml/min Glucose 107 H (74-106) mg/dL Calcium 8.8 (8.5-10.1) mg/dL Med Orders - Current: Current Medications Acetaminophen (Acetaminophen 500 Mg Tab) 500 mg PO Q4H PRN PRN Reason: Pain Last Admin: 02/25/21 04:54 Dose: 500 mg Documented by: Albuterol (Albuterol 0.083% 2.5 Mg/3 Ml Neb Soln) 2.5 mg NEB Q4HRRT PRN PRN Reason: Shortness of Breath Last Admin: 02/28/21 09:18 Dose: 2.5 mg Documented by: Cetirizine HCl (Cetirizine 10 Mg Tab) 10 mg PO DAILY PRN PRN Reason: Allergies Gabapentin (Gabapentin 300 Mg Cap) 300 mg PO BID [facility] Last Admin: 02/27/21 21:00 Dose: 300 mg Documented by: Heparin Sodium (Porcine) (Heparin Sodium 5,000 Units/Ml Vial) 5,000 units SUBCUT Q12H [facility] Last Admin: 02/28/21 10:57 Dose: 5,000 units Documented by: Ondansetron HCl (Ondansetron 4 Mg/2 Ml Sdv) 4 mg IVPUSH Q4H PRN PRN Reason: Nausea/Vomiting Oxycodone HCl (Oxycodone 5 Mg Tab) 5 - 10 mg PO Q3H PRN PRN Reason: Pain Last Admin: 02/28/21 01:19 Dose: 5 mg Documented by: Tacrolimus 0.75 Mg (Er Tablets) 2 each PO DAILY [facility] Last Admin: 02/28/21 09:17 Dose: 2 each Documented by: Mycophenolate Mofetil 250 Mg Cap * Own Med 1 each PO BID [facility] Last Admin: 02/28/21 09:16 Dose: 1 each Documented by: Polyethylene Glycol (Polyethylene Glycol 3350 Powder 17 Gm Packet) 17 gm PO DAILY PRN PRN Reason: Constipation Last Admin: 02/27/21 21:43 Dose: 17 gm Documented by: Sodium Chloride (Sodium Chloride 0.9% 2.5 Ml Syringe) 2.5 ml FLUSH ASDIRECTED PRN PRN Reason: Keep Vein Open Sodium Chloride (Sodium Chloride 0.65% Nasal [place] 45 Ml Bottle) 0 ml RASHMI Q4H PRN PRN Reason: nasal dryness/congestion Last Admin: 02/22/21 20:39 Dose: 2 spray Documented by: Valacyclovir HCl (Valacyclovir 500 Mg Tab) 1,000 mg PO DAILY [facility] Last Admin: 02/28/21 09:15 Dose: 1,000 mg Documented by: Discontinued Medications Acetaminophen (Acetaminophen 500 Mg Tab) 1,000 mg PO ONETIME ONE Stop: 02/21/21 09:01 Last Admin: 02/21/21 09:00 Dose: 1,000 mg Documented by: Acetaminophen (Acetaminophen 500 Mg Tab) 1,000 mg PO Q8H PRN PRN Reason: Pain Last Admin: 02/22/21 01:00 Dose: 1,000 mg Documented by: Acetazolamide (Acetazolamide 250 Mg Tab) 500 mg PO ONETIME ONE Stop: 02/21/21 17:01 Last Admin: 02/21/21 17:16 Dose: 500 mg Documented by: Albuterol (Albuterol 0.083% 2.5 Mg/3 Ml Neb Soln) Confirm Administered Dose 2.5 mg .ROUTE .STK-MED ONE Stop: 02/20/21 23:11 Last Admin: 02/20/21 23:19 Dose: 2.5 mg Documented by: Albuterol/Ipratropium (Albuterol/Ipratropium 3.0-0.5 Mg/3 Ml Neb Soln) 3 ml NEB Q4HRRT PRN PRN Reason: Shortness Of Breath/wheezing Azithromycin (Azithromycin 500 Mg Vial) 250 mg IV Q24H [facility] Last Admin: 02/20/21 22:40 Dose: Not Given Documented by: Ceftriaxone Sodium (Ceftriaxone 1 Gm Vial) 1 gm IVPUSH Q24H [facility] Last Admin: 02/20/21 22:54 Dose: Not Given Documented by: Furosemide (Furosemide 40 Mg/4 Ml Vial) 20 mg IVPUSH NOW ONE Stop: 02/20/21 16:25 Last Admin: 02/20/21 16:54 Dose: 20 mg Documented by: Furosemide (Furosemide 40 Mg/4 Ml Vial) 40 mg IVPUSH BID [facility] Last Admin: 02/23/21 09:11 Dose: 40 mg Documented by: Furosemide (Furosemide 40 Mg/4 Ml Vial) 40 mg IVPUSH TID [facility] Last Admin: 02/25/21 06:24 Dose: 40 mg Documented by: Furosemide (Furosemide 40 Mg/4 Ml Vial) 40 mg IVPUSH BID [facility] Last Admin: 02/25/21 20:58 Dose: 40 mg Documented by: Heparin Sodium (Porcine) (Heparin Sodium 5,000 Units/Ml Vial) 5,000 units SUBCUT Q8H [facility] Last Admin: 02/22/21 04:31 Dose: Not Given Documented by: Azithromycin 500 mg/ Sodium (Chloride) 250 mls @ 250 mls/hr IV ONETIME [facility] Last Admin: 02/20/21 22:10 Dose: 250 mls/hr Documented by: Ceftriaxone Sodium/Dextrose 1 (gm/ Premix) 50 mls @ 100 mls/hr IV Q24H [facility] Last Admin: 02/21/21 22:53 Dose: 100 mls/hr Documented by: Azithromycin 500 mg/ Sodium (Chloride) 250 mls @ 250 mls/hr IV Q24H [facility] Last Admin: 02/21/21 20:42 Dose: 250 mls/hr Documented by: Lidocaine (Lidocaine 5% 700 Mg Patch) 700 mg TRDERM Q24H [facility] Last Admin: 02/22/21 09:01 Dose: Not Given Documented by: Metolazone (Metolazone 5 Mg Tab) 2.5 mg PO ONETIME ONE Stop: 02/23/21 09:55 Last Admin: 02/23/21 11:25 Dose: Not Given Documented by: Metolazone (Metolazone 5 Mg Tab) 2.5 mg PO ONETIME ONE Stop: 02/23/21 13:31 Last Admin: 02/23/21 13:35 Dose: 2.5 mg Documented by: Miscellaneous Information (Remove Patch) 1 ea TRDERM Q24H [facility] Last Admin: 02/21/21 21:03 Dose: Not Given Documented by: Morphine Sulfate (Morphine 2 Mg/Ml Syringe) 2 mg IVPUSH ONETIME ONE Stop: 02/20/21 18:14 Last Admin: 02/20/21 18:18 Dose: 2 mg Documented by: Morphine Sulfate (Morphine 2 Mg/Ml Syringe) 1 mg IVPUSH Q4H PRN PRN Reason: Pain Last Admin: 02/21/21 12:54 Dose: 1 mg Documented by: Mycophenolate Mofetil (Mycophenolate Mofetil 250 Mg Cap Own Med) 250 mg PO BID [facility] Last Admin: 02/21/21 10:14 Dose: Not Given Documented by: Oxycodone HCl (Oxycodone 5 Mg Tab) 5 mg PO Q4H PRN PRN Reason: Pain Last Admin: 02/23/21 09:11 Dose: 5 mg Documented by: Oxycodone HCl (Oxycodone 5 Mg Tab) 5 mg PO ONETIME ONE Stop: 02/23/21 10:11 Last Admin: 02/23/21 10:17 Dose: 5 mg Documented by: Oxycodone HCl (Oxycodone 5 Mg Tab) 10 mg PO Q4H PRN PRN Reason: Pain Last Admin: 02/24/21 11:34 Dose: 10 mg Documented by: Oxycodone HCl (Oxycodone 5 Mg Tab) 10 mg PO Q3H PRN PRN Reason: Pain Last Admin: 02/26/21 10:08 Dose: 5 mg Documented by: Potassium Chloride (Potassium Chloride 20 Meq Tab.Er) 40 meq PO ONETIME ONE Stop: 02/22/21 08:41 Last Admin: 02/22/21 08:54 Dose: 40 meq Documented by: Sodium Chloride (Sodium Chloride 0.9% 10 Ml Syringe) 10 ml FLUSH ASDIRECTED PRN PRN Reason: Keep Vein Open Last Admin: 02/20/21 15:47 Dose: 10 ml Documented by: Sodium Chloride (Sodium Chloride 0.9% 2.5 Ml Syringe) 2.5 ml FLUSH ASDIRECTED PRN PRN Reason: Keep Vein Open Last Admin: 02/20/21 15:47 Dose: 2.5 ml Documented by: Tacrolimus (Tacrolimus 0.75 Mg CapOwn Med) 0 mg PO DAILY [facility] Last Admin: 02/21/21 02:18 Dose: Not Given Documented by: Tacrolimus (Tacrolimus 0.75 Mg CapOwn Med) 0 mg PO DAILY [facility] Last Admin: 02/21/21 10:12 Dose: Not Given Documented by: - Exam Quality Assessment: Supplemental Oxygen (3 L), DVT Prophylaxis Urinary Catheter Total Time: 5Days 4Hours General: Alert, Oriented, Cooperative, No Acute Distress Lungs: Decreased Breath Sounds (Bibasilar), Crackles (Fine crackles to bibasilar lobes), Wheezing Cardiovascular: Regular Rate, Regular Rhythm, No Murmurs GI/Abdominal Exam: Normal Bowel Sounds, Soft, Non-Tender Extremities: Normal Inspection, Normal Range of Motion, Non-Tender, Pedal Edema (2+ pitting edema to lower extremities since approximately 2 PM this. Does not include scrotum) Wound/Incisions: Other (Bruising noted to left foot from when he dropped oxygen tank prior to admission. Slight fluid collections noted with serous fluid we will continue to monitor closely no erythema or warmth.) Neurological: No New Focal Deficit Psy/Mental Status: Alert, Normal Affect, Normal Mood - Patient Data Lab Results Last 24 hrs: Laboratory Results - last 24 hr 02/28/21 02/28/21 Range/Units 05:05 05:05 WBC 4.76 (4.0-11.0) K/uL RBC 3.10 L (4.50-5.90) M/uL Hgb 9.6 L (13.0-17.0) g/dL Hct 29.9 L (38.0-50.0) % MCV 96.5 (80.0-98.0) fL MCH 31.0 (27.0-32.0) pg MCHC 32.1 (31.0-37.0) g/dL RDW Std Deviation 64.9 H (28.0-62.0) fl RDW Coeff of Uday 19 H (11.0-15.0) % Plt Count 162 (150-400) K/uL MPV 10.90 (7.40-12.00) fL Neut % (Auto) 61.2 (48.0-80.0) % Lymph % (Auto) 20.8 (16.0-40.0) % [place] % (Auto) 15.5 H (0.0-15.0) % Eos % (Auto) 2.3 (0.0-7.0) % Baso % (Auto) 0.2 (0.0-1.5) % Neut # (Auto) 2.9 (1.4-5.7) K/uL Lymph # (Auto) 1.0 (0.6-2.4) K/uL [place]anan # (Auto) 0.7 (0.0-0.8) K/uL Eos # (Auto) 0.1 (0.0-0.7) K/uL Baso # (Auto) 0.0 (0.0-0.1) K/uL Nucleated RBC % 0.5 /100WBC Nucleated RBCs # 0 K/uL Sodium 132 L (136-148) mmol/L Potassium 4.3 (3.5-5.1) mmol/L Chloride 92 L (98-107) mmol/L Carbon Dioxide 35.9 H (21.0-32.0) mmol/L BUN 88 H (7.0-18.0) mg/dL Creatinine 2.3 H (0.8-1.3) mg/dL Est Cr Clr Drug Dosing 34.28 mL/min Estimated GFR (MDRD) 29.5 ml/min Glucose 107 H (74-106) mg/dL Calcium 8.8 (8.5-10.1) mg/dL Result Diagrams: 02/28/21 05:05 02/28/21 05:05 Sepsis Event Note - Evaluation Sepsis Screening Result: No Definite Risk - Focused Exam Vital Signs: Vital Signs Temp Pulse Resp BP BP Pulse Ox 02/28/21 11:37 97.5 F 86 16 105/67 98 02/28/21 07:26 97.3 F 80 15 104/55 L 95 - Problem List & Annotations (1) Acute on chronic respiratory failure with hypoxia and hypercapnia SNOMED Code(s): 92745372829666 Code(s): J96.21 - ACUTE AND CHRONIC RESPIRATORY FAILURE WITH HYPOXIA; J96.22 - ACUTE AND CHRONIC RESPIRATORY FAILURE WITH HYPERCAPNIA Status: Acute Current Visit: Yes (2) Encephalopathy SNOMED Code(s): 60413966 Code(s): G93.40 - ENCEPHALOPATHY, UNSPECIFIED Status: Acute Current Visit: No (3) Pulmonary edema SNOMED Code(s): 31761545 Code(s): J81.1 - CHRONIC PULMONARY EDEMA Status: Acute Current Visit: Yes Qualifiers: Chronicity: acute Qualified Code(s): J81.0 - Acute pulmonary edema (4) Dyspnea SNOMED Code(s): 508295001 Code(s): R06.00 - DYSPNEA, UNSPECIFIED Status: Acute Current Visit: Yes Qualifiers: Dyspnea type: dyspnea on exertion Qualified Code(s): R06.00 - Dyspnea, unspecified (5) Bilateral lower extremity edema SNOMED Code(s): 598318322, 25324484, 348336765 Code(s): R60.0 - LOCALIZED EDEMA Status: Acute Current Visit: Yes (6) Shingles SNOMED Code(s): 1057639 Code(s): B02.9 - ZOSTER WITHOUT COMPLICATIONS Status: Acute Current Visit: Yes Qualifiers: Herpes zoster complications: without complications Qualified Code(s): B02.9 - Zoster without complications (7) Post herpetic neuralgia SNOMED Code(s): 8117787 Code(s): B02.29 - OTHER POSTHERPETIC NERVOUS SYSTEM INVOLVEMENT Status: Acute Current Visit: No (8) Diastolic heart failure SNOMED Code(s): 388643831 Code(s): I50.30 - UNSPECIFIED DIASTOLIC (CONGESTIVE) HEART FAILURE Status: Acute Current Visit: Yes Qualifiers: Heart failure chronicity: acute on chronic Qualified Code(s): I50.33 - Acute on chronic diastolic (congestive) heart failure (9) Immunosuppression SNOMED Code(s): 51448284 Code(s): D84.9 - IMMUNODEFICIENCY, UNSPECIFIED Status: Chronic Current Visit: Yes (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 Status: Chronic Current Visit: Yes (11) Liver transplant recipient SNOMED Code(s): 482321692 Code(s): Z94.4 - LIVER TRANSPLANT STATUS Status: Chronic Current Visit: Yes (12) S/P TIPS (transjugular intrahepatic portosystemic shunt) SNOMED Code(s): 897589998, 271452045 Code(s): Z95.828 - PRESENCE OF OTHER VASCULAR IMPLANTS AND GRAFTS Status: Chronic Current Visit: Yes (13) Depression SNOMED Code(s): 19834935 Code(s): F32.9 - MAJOR DEPRESSIVE DISORDER, SINGLE EPISODE, UNSPECIFIED Status: Chronic Current Visit: Yes Qualifiers: Depression Type: unspecified Qualified Code(s): F32.9 - Major depressive disorder, single episode, unspecified (14) Obesity SNOMED Code(s): 930910911, 882143746 Code(s): E66.9 - OBESITY, UNSPECIFIED Status: Chronic Current Visit: Yes (15) CKD (chronic kidney disease) SNOMED Code(s): 162688605 Code(s): N18.9 - CHRONIC KIDNEY DISEASE, UNSPECIFIED Status: Chronic Current Visit: Yes (16) Asthma SNOMED Code(s): 469488923 Code(s): J45.909 - UNSPECIFIED ASTHMA, UNCOMPLICATED Status: Chronic Current Visit: Yes Qualifiers: Asthma severity: mild Asthma persistence: intermittent (17) Oxygen dependent SNOMED Code(s): 243049048916 Code(s): Z99.81 - DEPENDENCE ON SUPPLEMENTAL OXYGEN Status: Chronic Current Visit: Yes (18) Esophageal varices SNOMED Code(s): 98428810 Code(s): I85.00 - ESOPHAGEAL VARICES WITHOUT BLEEDING Status: Chronic Current Visit: No Onset Date: 09/03/14 (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 Acute on chronic hypercapnic hypoxic respiratory failure -Stable, oxygen now at 3 L NC -Chest CT revealed pulmonary edema no infectious process. -Diuresis on hold today due to bump in creatinine to 2.3, BUN 88 -Hypercapnia stable, likely chronic in nature -Albuterol as needed -Reviewed records from [facility] in [facility] he did have a PFT which showed mixed disorder suggesting some obstructive and restrictive components. Respiratory muscle strength appears to be slightly reduced both expiratory and inspiratory. 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 2. Acute on chronic diastolic CHF exacerbation -Echo EF 60%. Normal left ventricular systolic function, mild concentric LVH normal LV diastolic filling normal right ventricular size, wall thickness and s ystolic function. Trace aortic and mitral valve regurgitation trace tricuspid valve regurgitation right ventricular systolic pressure borderline at 26.6 no regional wall motion abnormalities. Has had history of diminished right jugular systolic function. -Hold Lasix today Cr 2.3 Transplant team aware. -Low-sodium diet 1.8 L fluid restriction, encouraged to monitor fluids more -Daily weight, which has improved today -Peripheral edema could be related to recent dexamethasone use as well. -BNP 15 3. Shingles herpetic neuralgia - Pain is steadily improving. -Gabapentin 300 mg BID, will decrease to 100 twice daily -cont oxycodone 5-10 mg every 3h -Mental status much improved, tolerate opioids well. -Tylenol total of 3 g daily as needed -Continue antiviral medication 4. Renal/liver transplant recipient -Renal function within baseline. 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 Likely chronic finding as collaterals have been established -Reached out to fran Mackayison of transplant team. Discussed with her vascular surgeon recommendations along with lab work today and our plan of holding torsemide for today and likely restart in the next coming days. Unsure if transfer is still requested per transplant team as patient is steadily improving. BUN and creatinine have not increased significantly. Patient is producing urine. Family is aware we are awaiting recommendations at this time. We will continue current treatment plan until able to speak with transplant provider. 5. IVC calcification - Talked with vascular surgeon yesterday regarding IVC calcification with collaterals. Dr. Lewis felt this is likely chronic and there is nothing urgent or emergent to do currently. She recommended venous duplex to evaluate patency and flow. Ultrasound obtained which revealed abdominal inferior vena cava to be patent with flow in the appropriate direction but small in caliber. Remainder of abdominal inferior vena cava cannot be visualized due to bowel gas. Calcification or high density within the proximal abdominal inferior vena cava on recent CT could be related to prior thrombus or postsurgical in nature. Hepatic venous system is patent with flow in an appropriate direction. Mid portal venous system is patent with flow in appropriate direction. At this time will continue to encourage lower extremity compression per vascular surgeon. No thrombus noted so no anticoagulation is needed at this time. VTE prophylaxis: Heparin CODE STATUS: Full code Dispo: 1-2 days pending improvement. Continuing to speak with transplant team daily. Awaiting recommendations versus transfer or close follow-up. Codie transplant liaison at [facility] with Dr. Zafar is able to be reached at .
[2021-02-28] MEDS: Gabapentin 300 MG Cap PO SCH (12:26)
[2021-02-28] MEDS: Gabapentin 100 MG Cap PO SCH (21:31)
[2021-02-28] MEDS: Polyethylene Glycol 3350 Powder 17 GM Packet PO PRN (21:53)
[2021-03-01] MEDS: oxyCODONE 5 MG Tab PO PRN ×5 (06:16→22:26)
[2021-03-01 06:32] LABS: CARBON DIOXIDE,CO2 37.6 mmol/L (21.0-32.0); POTASSIUM,K 4.2 mmol/L (3.5-5.1)
[2021-03-01] MEDS: Gabapentin 100 MG Cap PO SCH ×2 (08:35→20:51)
[2021-03-01] MEDS: valACYclovir 500 MG Tab PO SCH (08:36)
[2021-03-01] MEDS: TACROLIMUS 0.75 MG PO SCH (08:37)
[2021-03-01] MEDS: MYCOPHENOLATE MOFETIL 250 MG PO SCH ×2 (08:38→20:51)
[2021-03-01] MEDS: Albuterol 0.083% 2.5 MG/3 ML Neb Soln NEB PRN ×2 (09:23→19:33)
--- NOTE | 2021-03-01 09:49 | PCM.PN ---
- General Info Date of Service: 03/01/21 Admission Dx/Problem (Free Text): Admission Diagnosis/Problem Admission Diagnosis/Problem acute on chronic hypercapnic hypoxic respiratory failure, possible CHF diastolic exacerbation Subjective Update: Feeling improved today, pain is steadily improving. NO chest pain. No SOB. Edema to lower extremities improving. No other complaints. Functional Status: Reports: Pain Controlled, Tolerating Diet, Ambulating, Urinating - Review of Systems General: Reports: No Symptoms. Denies: Weakness, Fatigue HEENT: Reports: No Symptoms, Other (pain to neck is is improving daily and more localized than prior pain). Denies: Headaches, Sore Throat, Visual Changes Pulmonary: Reports: No Symptoms. Denies: Shortness of Breath, Cough Cardiovascular: Reports: Edema (improving. ) Gastrointestinal: Reports: No Symptoms. Denies: Abdominal Pain, Nausea, Vomiting Genitourinary: Reports: No Symptoms. Denies: Dysuria, Frequency, Burning Musculoskeletal: Reports: No Symptoms Skin: Reports: No Symptoms Neurological: Reports: No Symptoms Psychiatric: Reports: No Symptoms - Patient Data Vitals - Most Recent: Last Vital Signs Temp 97.6 F 03/01/21 07:13 Pulse 80 03/01/21 07:13 Resp 16 03/01/21 07:13 BP 107/55 L 03/01/21 04:00 Pulse Ox 97 03/01/21 07:13 Weight - Most Recent: 123.695 kg I&O - Last 24 Hours: Intake & Output 02/28/21 03/01/21 03/01/21 22:59 06:59 14:59 Intake Total 240 720 Output Total 850 1200 Balance -610 -480 Lab Results Last 24 Hours: Laboratory Results - last 24 hr 03/01/21 03/01/21 Range/Units 05:40 05:40 WBC 3.45 L (4.0-11.0) K/uL RBC 3.02 L (4.50-5.90) M/uL Hgb 9.4 L (13.0-17.0) g/dL Hct 29.3 L (38.0-50.0) % MCV 97.0 (80.0-98.0) fL MCH 31.1 (27.0-32.0) pg MCHC 32.1 (31.0-37.0) g/dL RDW Std Deviation 63.9 H (28.0-62.0) fl RDW Coeff of Uday 18 H (11.0-15.0) % Plt Count 145 L (150-400) K/uL MPV 11.00 (7.40-12.00) fL Add Manual Diff YES Neutrophils % (Manual) 65 (48.0-80.0) % Band Neutrophils % 2 % Lymphocytes % (Manual) 23 (16.0-40.0) % Monocytes % (Manual) 8 (0.0-15.0) % Eosinophils % (Manual) 2 (0.0-7.0) % Nucleated RBC % 0.0 /100WBC Absolute Seg Neuts 2.2 (1.4-5.7) Band Neutrophils # 0.1 Lymphocytes # (Manual) 0.8 (0.6-2.4) Monocytes # (Manual) 0.3 (0.0-0.8) Eosinophils # (Manual) 0.1 (0.0-0.7) Nucleated RBCs # 0 K/uL Sodium 132 L (136-148) mmol/L Potassium 4.2 (3.5-5.1) mmol/L Chloride 94 L (98-107) mmol/L Carbon Dioxide 37.6 H (21.0-32.0) mmol/L BUN 96 H (7.0-18.0) mg/dL Creatinine 2.1 H (0.8-1.3) mg/dL Est Cr Clr Drug Dosing 37.55 mL/min Estimated GFR (MDRD) 32.7 ml/min Glucose 109 H (74-106) mg/dL Calcium 8.8 (8.5-10.1) mg/dL Med Orders - Current: Current Medications Acetaminophen (Acetaminophen 500 Mg Tab) 500 mg PO Q4H PRN PRN Reason: Pain Last Admin: 02/25/21 04:54 Dose: 500 mg Documented by: Albuterol (Albuterol 0.083% 2.5 Mg/3 Ml Neb Soln) 2.5 mg NEB Q4HRRT PRN PRN Reason: Shortness of Breath Last Admin: 03/01/21 09:23 Dose: 2.5 mg Documented by: Cetirizine HCl (Cetirizine 10 Mg Tab) 10 mg PO DAILY PRN PRN Reason: Allergies Gabapentin (Gabapentin 100 Mg Cap) 100 mg PO BID JAMILA Last Admin: 03/01/21 08:35 Dose: 100 mg Documented by: Heparin Sodium (Porcine) (Heparin Sodium 5,000 Units/Ml Vial) 5,000 units SUBCUT Q12H [facility] Last Admin: 02/28/21 21:54 Dose: 5,000 units Documented by: Ondansetron HCl (Ondansetron 4 Mg/2 Ml Sdv) 4 mg IVPUSH Q4H PRN PRN Reason: Nausea/Vomiting Oxycodone HCl (Oxycodone 5 Mg Tab) 5 - 10 mg PO Q3H PRN PRN Reason: Pain Last Admin: 03/01/21 06:16 Dose: 5 mg Documented by: Tacrolimus 0.75 Mg (Er Tablets) 2 each PO DAILY [facility] Last Admin: 03/01/21 08:37 Dose: 2 each Documented by: Mycophenolate Mofetil 250 Mg Cap * Own Med 1 each PO BID [facility] Last Admin: 03/01/21 08:38 Dose: 1 each Documented by: Polyethylene Glycol (Polyethylene Glycol 3350 Powder 17 Gm Packet) 17 gm PO DAILY PRN PRN Reason: Constipation Last Admin: 02/28/21 21:53 Dose: 17 gm Documented by: Sodium Chloride (Sodium Chloride 0.9% 2.5 Ml Syringe) 2.5 ml FLUSH ASDIRECTED PRN PRN Reason: Keep Vein Open Sodium Chloride (Sodium Chloride 0.65% Nasal [place] 45 Ml Bottle) 0 ml RASHMI Q4H PRN PRN Reason: nasal dryness/congestion Last Admin: 02/22/21 20:39 Dose: 2 spray Documented by: Valacyclovir HCl (Valacyclovir 500 Mg Tab) 1,000 mg PO DAILY [facility] Last Admin: 03/01/21 08:36 Dose: 1,000 mg Documented by: Discontinued Medications Acetaminophen (Acetaminophen 500 Mg Tab) 1,000 mg PO ONETIME ONE Stop: 02/21/21 09:01 Last Admin: 02/21/21 09:00 Dose: 1,000 mg Documented by: Acetaminophen (Acetaminophen 500 Mg Tab) 1,000 mg PO Q8H PRN PRN Reason: Pain Last Admin: 02/22/21 01:00 Dose: 1,000 mg Documented by: Acetazolamide (Acetazolamide 250 Mg Tab) 500 mg PO ONETIME ONE Stop: 02/21/21 17:01 Last Admin: 02/21/21 17:16 Dose: 500 mg Documented by: Albuterol (Albuterol 0.083% 2.5 Mg/3 Ml Neb Soln) Confirm Administered Dose 2.5 mg .ROUTE .STK-MED ONE Stop: 02/20/21 23:11 Last Admin: 02/20/21 23:19 Dose: 2.5 mg Documented by: Albuterol/Ipratropium (Albuterol/Ipratropium 3.0-0.5 Mg/3 Ml Neb Soln) 3 ml NEB Q4HRRT PRN PRN Reason: Shortness Of Breath/wheezing Azithromycin (Azithromycin 500 Mg Vial) 250 mg IV Q24H [facility] Last Admin: 02/20/21 22:40 Dose: Not Given Documented by: Ceftriaxone Sodium (Ceftriaxone 1 Gm Vial) 1 gm IVPUSH Q24H [facility] Last Admin: 02/20/21 22:54 Dose: Not Given Documented by: Furosemide (Furosemide 40 Mg/4 Ml Vial) 20 mg IVPUSH NOW ONE Stop: 02/20/21 16:25 Last Admin: 02/20/21 16:54 Dose: 20 mg Documented by: Furosemide (Furosemide 40 Mg/4 Ml Vial) 40 mg IVPUSH BID [facility] Last Admin: 02/23/21 09:11 Dose: 40 mg Documented by: Furosemide (Furosemide 40 Mg/4 Ml Vial) 40 mg IVPUSH TID [facility] Last Admin: 02/25/21 06:24 Dose: 40 mg Documented by: Furosemide (Furosemide 40 Mg/4 Ml Vial) 40 mg IVPUSH BID [facility] Last Admin: 02/25/21 20:58 Dose: 40 mg Documented by: Gabapentin (Gabapentin 300 Mg Cap) 300 mg PO BID [facility] Last Admin: 02/28/21 12:26 Dose: Not Given Documented by: Heparin Sodium (Porcine) (Heparin Sodium 5,000 Units/Ml Vial) 5,000 units SUBCUT Q8H [facility] Last Admin: 02/22/21 04:31 Dose: Not Given Documented by: Azithromycin 500 mg/ Sodium (Chloride) 250 mls @ 250 mls/hr IV ONETIME [facility] Last Admin: 02/20/21 22:10 Dose: 250 mls/hr Documented by: Ceftriaxone Sodium/Dextrose 1 (gm/ Premix) 50 mls @ 100 mls/hr IV Q24H [facility] Last Admin: 02/21/21 22:53 Dose: 100 mls/hr Documented by: Azithromycin 500 mg/ Sodium (Chloride) 250 mls @ 250 mls/hr IV Q24H [facility] Last Admin: 02/21/21 20:42 Dose: 250 mls/hr Documented by: Lidocaine (Lidocaine 5% 700 Mg Patch) 700 mg TRDERM Q24H [facility] Last Admin: 02/22/21 09:01 Dose: Not Given Documented by: Metolazone (Metolazone 5 Mg Tab) 2.5 mg PO ONETIME ONE Stop: 02/23/21 09:55 Last Admin: 02/23/21 11:25 Dose: Not Given Documented by: Metolazone (Metolazone 5 Mg Tab) 2.5 mg PO ONETIME ONE Stop: 02/23/21 13:31 Last Admin: 02/23/21 13:35 Dose: 2.5 mg Documented by: Miscellaneous Information (Remove Patch) 1 ea TRDERM Q24H [facility] Last Admin: 02/21/21 21:03 Dose: Not Given Documented by: Morphine Sulfate (Morphine 2 Mg/Ml Syringe) 2 mg IVPUSH ONETIME ONE Stop: 02/20/21 18:14 Last Admin: 02/20/21 18:18 Dose: 2 mg Documented by: Morphine Sulfate (Morphine 2 Mg/Ml Syringe) 1 mg IVPUSH Q4H PRN PRN Reason: Pain Last Admin: 02/21/21 12:54 Dose: 1 mg Documented by: Mycophenolate Mofetil (Mycophenolate Mofetil 250 Mg Cap Own Med) 250 mg PO BID [facility] Last Admin: 02/21/21 10:14 Dose: Not Given Documented by: Oxycodone HCl (Oxycodone 5 Mg Tab) 5 mg PO Q4H PRN PRN Reason: Pain Last Admin: 02/23/21 09:11 Dose: 5 mg Documented by: Oxycodone HCl (Oxycodone 5 Mg Tab) 5 mg PO ONETIME ONE Stop: 02/23/21 10:11 Last Admin: 02/23/21 10:17 Dose: 5 mg Documented by: Oxycodone HCl (Oxycodone 5 Mg Tab) 10 mg PO Q4H PRN PRN Reason: Pain Last Admin: 02/24/21 11:34 Dose: 10 mg Documented by: Oxycodone HCl (Oxycodone 5 Mg Tab) 10 mg PO Q3H PRN PRN Reason: Pain Last Admin: 02/26/21 10:08 Dose: 5 mg Documented by: Potassium Chloride (Potassium Chloride 20 Meq Tab.Er) 40 meq PO ONETIME ONE Stop: 02/22/21 08:41 Last Admin: 02/22/21 08:54 Dose: 40 meq Documented by: Sodium Chloride (Sodium Chloride 0.9% 10 Ml Syringe) 10 ml FLUSH ASDIRECTED PRN PRN Reason: Keep Vein Open Last Admin: 02/20/21 15:47 Dose: 10 ml Documented by: Sodium Chloride (Sodium Chloride 0.9% 2.5 Ml Syringe) 2.5 ml FLUSH ASDIRECTED PRN PRN Reason: Keep Vein Open Last Admin: 02/20/21 15:47 Dose: 2.5 ml Documented by: Tacrolimus (Tacrolimus 0.75 Mg CapOwn Med) 0 mg PO DAILY [facility] Last Admin: 02/21/21 02:18 Dose: Not Given Documented by: Tacrolimus (Tacrolimus 0.75 Mg CapOwn Med) 0 mg PO DAILY [facility] Last Admin: 02/21/21 10:12 Dose: Not Given Documented by: - Exam Quality Assessment: Supplemental Oxygen (3 L), DVT Prophylaxis. No: Urine Catheter Urinary Catheter Total Time: 5Days 4Hours General: Alert, Oriented, Cooperative, No Acute Distress Lungs: Crackles (fine bibasilar) Cardiovascular: Regular Rate, Regular Rhythm GI/Abdominal Exam: Normal Bowel Sounds, Soft, Non-Tender Back Exam: Normal Inspection, Full Range of Motion Extremities: Normal Inspection, Normal Range of Motion, Non-Tender, No Pedal Edema Neurological: No New Focal Deficit Psy/Mental Status: Alert, Normal Affect, Normal Mood - Patient Data Lab Results Last 24 hrs: Laboratory Results - last 24 hr 03/01/21 03/01/21 Range/Units 05:40 05:40 WBC 3.45 L (4.0-11.0) K/uL RBC 3.02 L (4.50-5.90) M/uL Hgb 9.4 L (13.0-17.0) g/dL Hct 29.3 L (38.0-50.0) % MCV 97.0 (80.0-98.0) fL MCH 31.1 (27.0-32.0) pg MCHC 32.1 (31.0-37.0) g/dL RDW Std Deviation 63.9 H (28.0-62.0) fl RDW Coeff of Uday 18 H (11.0-15.0) % Plt Count 145 L (150-400) K/uL MPV 11.00 (7.40-12.00) fL Add Manual Diff YES Neutrophils % (Manual) 65 (48.0-80.0) % Band Neutrophils % 2 % Lymphocytes % (Manual) 23 (16.0-40.0) % Monocytes % (Manual) 8 (0.0-15.0) % Eosinophils % (Manual) 2 (0.0-7.0) % Nucleated RBC % 0.0 /100WBC Absolute Seg Neuts 2.2 (1.4-5.7) Band Neutrophils # 0.1 Lymphocytes # (Manual) 0.8 (0.6-2.4) Monocytes # (Manual) 0.3 (0.0-0.8) Eosinophils # (Manual) 0.1 (0.0-0.7) Nucleated RBCs # 0 K/uL Sodium 132 L (136-148) mmol/L Potassium 4.2 (3.5-5.1) mmol/L Chloride 94 L (98-107) mmol/L Carbon Dioxide 37.6 H (21.0-32.0) mmol/L BUN 96 H (7.0-18.0) mg/dL Creatinine 2.1 H (0.8-1.3) mg/dL Est Cr Clr Drug Dosing 37.55 mL/min Estimated GFR (MDRD) 32.7 ml/min Glucose 109 H (74-106) mg/dL Calcium 8.8 (8.5-10.1) mg/dL Result Diagrams: 03/01/21 05:40 03/01/21 05:40 Sepsis Event Note - Evaluation Sepsis Screening Result: No Definite Risk - Focused Exam Vital Signs: Vital Signs Temp Pulse Resp BP BP Pulse Ox 03/01/21 07:13 97.6 F 80 16 97 03/01/21 04:00 97.7 F 78 16 107/55 L 95 02/28/21 23:34 97.4 F 77 16 109/58 L 95 - Problem List & Annotations (1) Acute on chronic respiratory failure with hypoxia and hypercapnia SNOMED Code(s): 56387739889753 Code(s): J96.21 - ACUTE AND CHRONIC RESPIRATORY FAILURE WITH HYPOXIA; J96.22 - ACUTE AND CHRONIC RESPIRATORY FAILURE WITH HYPERCAPNIA Status: Acute Current Visit: Yes (2) Encephalopathy SNOMED Code(s): 43955586 Code(s): G93.40 - ENCEPHALOPATHY, UNSPECIFIED Status: Acute Current Visit: No (3) Pulmonary edema SNOMED Code(s): 54819733 Code(s): J81.1 - CHRONIC PULMONARY EDEMA Status: Acute Current Visit: Yes Qualifiers: Chronicity: acute Qualified Code(s): J81.0 - Acute pulmonary edema (4) Dyspnea SNOMED Code(s): 237543558 Code(s): R06.00 - DYSPNEA, UNSPECIFIED Status: Acute Current Visit: Yes Qualifiers: Dyspnea type: dyspnea on exertion Qualified Code(s): R06.00 - Dyspnea, unspecified (5) Bilateral lower extremity edema SNOMED Code(s): 931248243, 20759432, 369287150 Code(s): R60.0 - LOCALIZED EDEMA Status: Acute Current Visit: Yes (6) Shingles SNOMED Code(s): 2295482 Code(s): B02.9 - ZOSTER WITHOUT COMPLICATIONS Status: Acute Current Visit : Yes Qualifiers: Herpes zoster complications: without complications Qualified Code(s): B02.9 - Zoster without complications (7) Post herpetic neuralgia SNOMED Code(s): 0483300 Code(s): B02.29 - OTHER POSTHERPETIC NERVOUS SYSTEM INVOLVEMENT Status: Acute Current Visit: No (8) Diastolic heart failure SNOMED Code(s): 460310913 Code(s): I50.30 - UNSPECIFIED DIASTOLIC (CONGESTIVE) HEART FAILURE Status: Acute Current Visit: Yes Qualifiers: Heart failure chronicity: acute on chronic Qualified Code(s): I50.33 - Acute on chronic diastolic (congestive) heart failure (9) Immunosuppression SNOMED Code(s): 72683164 Code(s): D84.9 - IMMUNODEFICIENCY, UNSPECIFIED Status: Chronic Current Visit: Yes (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 Status: Chronic Current Visit: Yes (11) Liver transplant recipient SNOMED Code(s): 505527363 Code(s): Z94.4 - LIVER TRANSPLANT STATUS Status: Chronic Current Visit: Yes (12) S/P TIPS (transjugular intrahepatic portosystemic shunt) SNOMED Code(s): 214788931, 388546762 Code(s): Z95.828 - PRESENCE OF OTHER VASCULAR IMPLANTS AND GRAFTS Status: Chronic Current Visit: Yes (13) Depression SNOMED Code(s): 09773285 Code(s): F32.9 - MAJOR DEPRESSIVE DISORDER, SINGLE EPISODE, UNSPECIFIED Status: Chronic Current Visit: Yes Qualifiers: Depression Type: unspecified Qualified Code(s): F32.9 - Major depressive disorder, single episode, unspecified (14) Obesity SNOMED Code(s): 821860374, 360514441 Code(s): E66.9 - OBESITY, UNSPECIFIED Status: Chronic Current Visit: Yes (15) CKD (chronic kidney disease) SNOMED Code(s): 176705338 Code(s): N18.9 - CHRONIC KIDNEY DISEASE, UNSPECIFIED Status: Chronic Current Visit: Yes (16) Asthma SNOMED Code(s): 144652231 Code(s): J45.909 - UNSPECIFIED ASTHMA, UNCOMPLICATED Status: Chronic Current Visit: Yes Qualifiers: Asthma severity: mild Asthma persistence: intermittent (17) Oxygen dependent SNOMED Code(s): 939863751142 Code(s): Z99.81 - DEPENDENCE ON SUPPLEMENTAL OXYGEN Status: Chronic Current Visit: Yes (18) Esophageal varices SNOMED Code(s): 23346471 Code(s): I85.00 - ESOPHAGEAL VARICES WITHOUT BLEEDING Status: Chronic Current Visit: No Onset Date: 09/03/14 (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 Acute on chronic hypercapnic hypoxic respiratory failure -Stable, oxygen now at 3 L NC -Chest CT revealed pulmonary edema no infectious process. -Diuresis on hold today due to bump in creatinine to 2.3, BUN 88 -Hypercapnia stable, likely chronic in nature -Albuterol as needed -Reviewed records from [facility] in [facility] he did have a PFT which showed mixed disorder suggesting some obstructive and restrictive components. Respiratory muscle strength appears to be slightly reduced both expiratory and inspiratory. 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 - Arrange sleep study as outpatient. 2. Acute on chronic diastolic CHF exacerbation - Stable. -Echo EF 60%. Normal left ventricular systolic function, mild concentric LVH normal LV diastolic filling normal right ventricular size, wall thickness and systolic function. Trace aortic and mitral valve regurgitation trace tricuspid valve regurgitation right ventricular systolic pressure borderline at 26.6 no regional wall motion abnormalities. Has had history of diminished right jugular systolic function. -Holding diuresis -Low-sodium diet 1.8 L fluid restriction, encouraged to monitor fluids more -Daily weight, which has improved today -Peripheral edema likely multifactorial -BNP 15 3. Shingles herpetic neuralgia - Pain is steadily improving. -Gabapentin 100 mg BID -cont oxycodone 5-10 mg every 3h -Tylenol total of 3 g daily as needed -Continue antiviral medication 4. Renal/liver transplant recipient -Renal function stabilizing... BUN 96 Cr 2.1 - Monitor BUN closely hoping for decrease in coming days. Denies active bleeding. Continues with mild confusion/delirium at night otherwise during the day he is appropriate. - Codie from transplant team spoke with Dr Zafar, feels better that things are settling down. Hold off on transfer. Their team will try arrange close follow up in the next week. Will let me know. -Tacrolimus 2.4, MPA level pending -Monitor urine output closely, continues to produce urine well. -Continue mycophenolate and tacrolimus 5. IVC calcification - Talked with vascular surgeon regarding IVC calcification with collaterals. Dr. Lewis felt this is likely chronic and there is nothing urgent or emergent to do currently. She recommended venous duplex to evaluate patency and flow. Ultrasound obtained which revealed abdominal inferior vena cava to be patent with flow in the appropriate direction but small in caliber. Remainder of abdominal inferior vena cava cannot be visualized due to bowel gas. Ca lcification or high density within the proximal abdominal inferior vena cava on recent CT could be related to prior thrombus or postsurgical in nature. Hepatic venous system is patent with flow in an appropriate direction. Mid portal venous system is patent with flow in appropriate direction. At this time will continue to encourage lower extremity compression per vascular surgeon. No thrombus noted so no anticoagulation is needed at this time. VTE prophylaxis: Heparin CODE STATUS: Full code Dispo: 1-2 days pending. Codie transplant liaison at [facility] with Dr. Zafar is able to be reached at .
[2021-03-01] MEDS: Heparin Sodium 5,000 Units/ML Vial SUBCUT SCH ×2 (10:50→22:27)
[2021-03-01] MEDS: Polyethylene Glycol 3350 Powder 17 GM Packet PO PRN (20:56)
[2021-03-02] MEDS: oxyCODONE 5 MG Tab PO PRN ×4 (03:42→14:08)
[2021-03-02 05:47] LABS: CARBON DIOXIDE,CO2 39.8 mmol/L (21.0-32.0); POTASSIUM,K 4.2 mmol/L (3.5-5.1)
[2021-03-02] MEDS: MYCOPHENOLATE MOFETIL 250 MG PO SCH (08:01)
[2021-03-02] MEDS: TACROLIMUS 0.75 MG PO SCH (08:01)
[2021-03-02] MEDS: valACYclovir 500 MG Tab PO SCH (08:02)
[2021-03-02] MEDS: Gabapentin 100 MG Cap PO SCH (08:02)
[2021-03-02] MEDS ORDERED: Gabapentin 100 MG Cap PO ONE (09:45)
[2021-03-02] MEDS: Albuterol 0.083% 2.5 MG/3 ML Neb Soln NEB PRN (09:48)
[2021-03-02] MEDS: Heparin Sodium 5,000 Units/ML Vial SUBCUT SCH (10:41)
[2021-03-02 11:47] VITALS: BP 118/70; PULSE 77
--- NOTE | 2021-03-02 11:47 | PCM.DCSUM1 ---
Discharge Summary - Hospital Course Brief History: Patient is a 55-year-old male, with a history of coronary artery disease status post stent, asthma, diastolic dysfunction, possible COPD on 3 to 4 L nasal cannula at home per baseline, esophageal varices status post TIPS procedure, liver transplant x2 in 2014, renal transplant in 2015 and on immunosuppressive agents, who presents emergency room today via EMS with concern of shortness of breath worse with exertion and worsening bilateral lower extremity swelling. Patient states that he has been feeling increasingly short of breath with worsening pedal edema for last 2 days. He did the ER few days back and was sent home with instructions to increase his Lasix dose. Patient states that he uses oxygen at home as needed but for last 2 days he has been needing to use it more often. Patient had an telemetry appointment with his transplant team today and they recommended increasing Lasix to 80 mg daily, they were also concerned at the amount of the opioids and gabapentin he is taking. Patient is currently dealing with episode of shingles and is on valacyclovir for that. Patient states that he has been in significant amount of pain has been take Percocet to handle his pain. Patient was initially on Dilaudid but that was making more more confused so he was switched to Percocet by the ER physician. Patient denies fever, chills, chest pain, or cough. Denies headache, neck stiff ness, change in vision, syncope, or near syncope. Denies nausea, vomiting, abdominal pain, diarrhea, constipation, or dysuria. Has not noted any blood in urine or stool. Patient has been eating and drinking appropriately. Chest x-ray in the ER showed bilateral interstitial opacities suggestive of edema versus atypical infection, patient received 20 mg IV Lasix in the ER he had already taken 60 of p.o. Lasix today. Troponin was negative, EKG did not show any changes. Patient was admitted for acute on chronic hypoxic respiratory failure. Review of chart shows that patient does have diastolic heart failure demonstrated on 2D echo done in April 2020. - Discharge Data Discharge Date: 03/02/21 Discharge Disposition: Home, Self-Care 01 Condition: Good - Referral to Home Health Primary Care Physician: Kelby Huerta MD - Discharge Diagnosis/Problem(s) (1) Acute on chronic respiratory failure with hypoxia and hypercapnia SNOMED Code(s): 29521169646239 ICD Code: J96.21 - ACUTE AND CHRONIC RESPIRATORY FAILURE WITH HYPOXIA; J96.22 - ACUTE AND CHRONIC RESPIRATORY FAILURE WITH HYPERCAPNIA Status: Acute Current Visit: Yes (2) Encephalopathy SNOMED Code(s): 92901499 ICD Code: G93.40 - ENCEPHALOPATHY, UNSPECIFIED Status: Acute Current Visit: No (3) Pulmonary edema SNOMED Code(s): 75917528 ICD Code: J81.1 - CHRONIC PULMONARY EDEMA Status: Acute Current Visit: Yes Qualifiers: Chronicity: acute Qualified Code(s): J81.0 - Acute pulmonary edema (4) Dyspnea SNOMED Code(s): 516872627 ICD Code: R06.00 - DYSPNEA, UNSPECIFIED Status: Acute Current Visit: Yes Qualifiers: Dyspnea type: dyspnea on exertion Qualified Code(s): R06.00 - Dyspnea, unspecified (5) Bilateral lower extremity edema SNOMED Code(s): 778599476, 83721210, 787980882 ICD Code: R60.0 - LOCALIZED EDEMA Status: Acute Current Visit: Yes (6) Shingles SNOMED Code(s): 1084431 ICD Code: B02.9 - ZOSTER WITHOUT COMPLICATIONS Status: Acute Current Visit: Yes Qualifiers: Herpes zoster complications: without complications Qualified Code(s): B02.9 - Zoster without complications (7) Post herpetic neuralgia SNOMED Code(s): 5580454 ICD Code: B02.29 - OTHER POSTHERPETIC NERVOUS SYSTEM INVOLVEMENT Status: Acute Current Visit: No (8) Diastolic heart failure SNOMED Code(s): 243514555 ICD Code: I50.30 - UNSPECIFIED DIASTOLIC (CONGESTIVE) HEART FAILURE Status: Acute Current Visit: Yes Qualifiers: Heart failure chronicity: acute on chronic Qualified Code(s): I50.33 - Acute on chronic diastolic (congestive) heart failure (9) Immunosuppression SNOMED Code(s): 35213686 ICD Code: D84.9 - IMMUNODEFICIENCY, UNSPECIFIED Status: Chronic Current Visit: Yes (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 Status: Chronic Current Visit: Yes (11) Liver transplant recipient SNOMED Code(s): 359538118 ICD Code: Z94.4 - LIVER TRANSPLANT STATUS Status: Chronic Current Visit: Yes (12) S/P TIPS (transjugular intrahepatic portosystemic shunt) SNOMED Code(s): 423974866, 024525516 ICD Code: Z95.828 - PRESENCE OF OTHER VASCULAR IMPLANTS AND GRAFTS Status: Chronic Current Visit: Yes (13) Depression SNOMED Code(s): 51014051 ICD Code: F32.9 - MAJOR DEPRESSIVE DISORDER, SINGLE EPISODE, UNSPECIFIED Status: Chronic Current Visit: Yes Qualifiers: Depression Type: unspecified Qualified Code(s): F32.9 - Major depressive disorder, single episode, unspecified (14) Obesity SNOMED Code(s): 957321553, 772104575 ICD Code: E66.9 - OBESITY, UNSPECIFIED Status: Chronic Current Visit: Yes (15) CKD (chronic kidney disease) SNOMED Code(s): 785990297 ICD Code: N18.9 - CHRONIC KIDNEY DISEASE, UNSPECIFIED Status: Chronic Current Visit: Yes (16) Asthma SNOMED Code(s): 720374198 ICD Code: J45.909 - UNSPECIFIED ASTHMA, UNCOMPLICATED Status: Chronic Current Visit: Yes Qualifiers: Asthma severity: mild Asthma persistence: intermittent (17) Oxygen dependent SNOMED Code(s): 072497814893 ICD Code: Z99.81 - DEPENDENCE ON SUPPLEMENTAL OXYGEN Status: Chronic Current Visit: Yes (18) Esophageal varices SNOMED Code(s): 80215424 ICD Code: I85.00 - ESOPHAGEAL VARICES WITHOUT BLEEDING Status: Chronic Current Visit: No Onset Date: 09/03/14 (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 SNOMED Code(s): 009331087 ICD Code: I82.220 - ACUTE EMBOLISM AND THROMBOSIS OF INFERIOR VENA CAVA Status: Suspected Current Visit: Yes - Patient Summary/Data Consults: Consultations 02/23/21 10:40 PT Evaluation and Treatment [CONS] Routine Hospital Course: Admission diagnoses Acute hypercapnic hypoxic respiratory failure Possible CHF Anasarca Discharge diagnoses Acute hypercapnic hypoxic respiratory failure, stable/resolved Anasarca IVC calcification KURT on CKD Other PMH Liver transplant x2 Renal treatment x1 Recent shingles with herpetic neuralgia Chronic oxygen use Immunosuppression History of CMV Maco was admitted for acute hypercapnic hypoxic respiratory failure. Initially he was treated for significant anasarca which was thought to be secondary to CHF. Echo obtained which showed no significant heart failure. EF 55 to 60%. Normal left ventricular systolic function mild concentric LVH noted normal pattern of LV diastolic filling. Right ventricular systolic pressure borderline at 26.6. Otherwise no regional wall motion abnormalities. He was treated with Lasix 40 mg IV twice daily. On the day 2 of admission patient noted to have significant confusion and hypercapnia. He was transferred to ICU to be on BiPAP. Patient did not tolerate BiPAP well as the straps to the face mask or touch his left face which was affected by herpetic neuralgia. eICU was consulted. Patient was then weaned off BiPAP as ABGs revealed likely chronic hypercapnia due to mixed obstructive and restrictive lung disease. A CT was obtained to help rule out any infectious cause of hypoxia. Patient does have paralyzed right diaphragm which is no diagnosis. He had diffuse groundglass infiltrates and crowded lung markings. Likely secondary to some pulmonary edema. Pulmonary veins are engorged there is no obvious pleural effusion. 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 This was a new finding but was noted to have significant collaterals. I did end up speaking with vascular surgeon Dr. Lewis from [facility] who felt this was likely a chronic finding due to the calcification and significant collaterals. She recommended Memo wraps for lower extremity edema otherwise obtaining a venous duplex to check patency and flow. This was completed which show good flow no active thrombus but likely there had been arthritis in the past. No anticoagulation needed at this time patient and family updated on all these findings. During his stay he was also noted to develop KURT on CKD due to diuresis. Diuresis was placed on hold under supervision from his rotary furnace operator and transplant provider, Dr. Zafar. Our team was in constant contact with Dr. Zafar and transplant team during his stay in regards to his KURT. At peak his creatinine was 2.4 BUN 96. After holding diuretics BUN today is 80 and creatinine is 1.8. Patient's anasarca has improved though albeit as low base. Patient is reluctant to wear Memo wraps as he has neuropathy to his lower extrem ities. Today patient will be discharged home he has very close follow-up with transplant team on March 06, [address] [place] Zafar recommended holding torsemide until patient noticed 3 pound weight gain from today weight. And restarting toes on only if torsemide is not effective in managing his weight. Patient and his notified of this. During his stay he had significant pain related to postherpetic neuralgia from shingles. Many medication combinations were tried. Gabapentin was ultimately decreased to 300 mg twice daily with good results and he was kept on oxycodone 5 to 10 mg every 4 hours for regular pain. He was also given Tylenol with a max of 3 g daily. Is overall had the best pain control with very few minimal intermittent breakthrough pain events. I will send a new prescription for gabapentin 300 mg twice daily to his pharmacy along with oxycodone tablets. Maco and his family were counseled on monitoring his weight at home daily along with monitoring sodium and fluid intake keeping fluids to 1.8 to 2 L daily. If at any point you were to suddenly worsen with shortness breath chest pain or worsening edema he is to seek medical evaluation immediately. Through the transplant team they recommend transfer to their facility for further evaluation due to his recent hospitalization and KURT. Patient and family agree with this. He does have follow-up in the next few days. Patient and family plan to start making their way to [place] on Friday. He is to return to the ER clinic if concerns should arise sooner. PCP has been notified of plans. - Patient Instructions Diet: Renal Diet Activity: No Strenuous Activities Showering/Bathing: May Shower Notify Provider of: Fever, Increased Pain, Swelling and Redness, Drainage, Nausea and/or Vomiting Other/Special Instructions: Sleep study prescription provided to respiratory therapy. They will contact you to schedule date and time. - Discharge Plan *PRESCRIPTION DRUG MONITORING PROGRAM REVIEWED*: Not Applicable *COPY OF PRESCRIPTION DRUG MONITORING REPORT IN PATIENT RAMONE: Not Applicable Prescriptions/Med Rec: Gabapentin [Neurontin] 300 mg PO BID #60 cap oxyCODONE 5 - 10 mg PO Q4H PRN #60 tablet PRN Reason: Pain Home Medications: Home Meds Polyethylene Glycol 3350 [MiraLAX] 17 gm PO DAILY PRN 02/18/16 [History] Vitamin B Complex [B Complex] 1 each PO DAILY 02/18/16 [History] Cetirizine [ZyrTEC] 10 mg PO DAILY PRN 05/21/16 [History] Cholecalciferol (Vitamin D3) [Vitamin D3] 1,000 mg PO DAILY 05/21/16 [History] mycophenolate mofetiL [Cellcept] 250 mg PO Q12HR 02/20/21 [History] Tacrolimus [Envarsus Xr] 1.5 mg PO DAILY 02/21/21 [History] Acetaminophen [Tylenol Extra Strength] 500 mg PO Q4H PRN tablet 03/02/21 [Rx] Albuterol [Proventil Neb Soln] 2.5 mg NEB Q4HRRT PRN neb 03/02/21 [Rx] Gabapentin [Neurontin] 300 mg PO BID #60 cap 03/02/21 [Rx] Sodium Chloride 0.65% [Peerless Nasal Mercedes] 1 spray RASHMI Q4H PRN bottle 03/02/21 [ Rx] Torsemide 80 mg PO DAILY #0 03/02/21 [Rx] metOLazone [Zaroxolyn] 2.5 mg PO MOTH #0 03/02/21 [Rx] oxyCODONE 5 - 10 mg PO Q4H PRN #60 tablet 03/02/21 [Rx] Oxygen Therapy Mode: Nasal Cannula Oxygen Flow Rate (L/min): 3.5 Maintain SpO2% greater than: 90 Patient Handouts: Shingles, Gabapentin capsules or tablets, Oxycodone tablets or capsules, Postherpetic Neuralgia, Pulmonary Edema, [id number] Referrals: Tez Zafar MD [Ordering Only Provider] - 03/06/21 12:00 pm Kelby Huerta MD [Primary Care Provider] - 04/23/21 2:45 pm - Discharge Summary/Plan Comment DC Time >30 min.: No - Patient Data Vitals - Most Recent: Last Vital Signs Temp 98.4 F 03/02/21 11:42 Pulse 88 03/02/21 11:42 Resp 18 03/02/21 11:42 BP 99/67 03/02/21 11:42 Pulse Ox 97 03/02/21 11:42 Weight - Most Recent: 124.194 kg I&O - Last 24 hours: Intake & Output 03/01/21 03/02/21 03/02/21 22:59 06:59 14:59 Intake Total 1100 720 Output Total 1150 1200 Balance -50 -480 Lab Results - Last 24 hrs: Laboratory Results - last 24 hr 03/02/21 03/02/21 Range/Units 04:58 04:58 WBC 3.16 L (4.0-11.0) K/uL RBC 3.04 L (4.50-5.90) M/uL Hgb 9.6 L (13.0-17.0) g/dL Hct 29.8 L (38.0-50.0) % MCV 98.0 (80.0-98.0) fL MCH 31.6 (27.0-32.0) pg MCHC 32.2 (31.0-37.0) g/dL RDW Std Deviation 63.4 H (28.0-62.0) fl RDW Coeff of Uday 18 H (11.0-15.0) % Plt Count 150 (150-400) K/uL MPV 10.40 (7.40-12.00) fL Add Manual Diff YES Neutrophils % (Manual) 52 (48.0-80.0) % Band Neutrophils % 6 % Lymphocytes % (Manual) 30 (16.0-40.0) % Monocytes % (Manual) 10 (0.0-15.0) % Eosinophils % (Manual) 2 (0.0-7.0) % Nucleated RBC % 0.0 /100WBC Absolute Seg Neuts 1.6 (1.4-5.7) Band Neutrophils # 0.2 Lymphocytes # (Manual) 0.9 (0.6-2.4) Monocytes # (Manual) 0.3 (0.0-0.8) Eosinophils # (Manual) 0.1 (0.0-0.7) Nucleated RBCs # 0 K/uL Sodium 136 (136-148) mmol/L Potassium 4.2 (3.5-5.1) mmol/L Chloride 95 L (98-107) mmol/L Carbon Dioxide 39.8 H (21.0-32.0) mmol/L BUN 80 H (7.0-18.0) mg/dL Creatinine 1.8 H (0.8-1.3) mg/dL Est Cr Clr Drug Dosing 43.97 mL/min Estimated GFR (MDRD) 39.1 ml/min Glucose 106 (74-106) mg/dL Calcium 9.1 (8.5-10.1) mg/dL Med Orders - Current: Current Medications Acetaminophen (Acetaminophen 500 Mg Tab) 500 mg PO Q4H PRN PRN Reason: Pain Last Admin: 02/25/21 04:54 Dose: 500 mg Documented by: Albuterol (Albuterol 0.083% 2.5 Mg/3 Ml Neb Soln) 2.5 mg NEB Q4HRRT PRN PRN Reason: Shortness of Breath Last Admin: 03/02/21 09:48 Dose: 2.5 mg Documented by: Cetirizine HCl (Cetirizine 10 Mg Tab) 10 mg PO DAILY PRN PRN Reason: Allergies Gabapentin (Gabapentin 300 Mg Cap) 300 mg PO BID [facility] Heparin Sodium (Porcine) (Heparin Sodium 5,000 Units/Ml Vial) 5,000 units SUBCUT Q12H [facility] Last Admin: 03/02/21 10:41 Dose: 5,000 units Documented by: Ondansetron HCl (Ondansetron 4 Mg/2 Ml Sdv) 4 mg IVPUSH Q4H PRN PRN Reason: Nausea/Vomiting Oxycodone HCl (Oxycodone 5 Mg Tab) 5 - 10 mg PO Q3H PRN PRN Reason: Pain Last Admin: 03/02/21 11:11 Dose: 5 mg Documented by: Tacrolimus 0.75 Mg (Er Tablets) 2 each PO DAILY [facility] Last Admin: 03/02/21 08:01 Dose: 2 each Documented by: Mycophenolate Mofetil 250 Mg Cap * Own Med 1 each PO BID [facility] Last Admin: 03/02/21 08:01 Dose: 1 each Documented by: Polyethylene Glycol (Polyethylene Glycol 3350 Powder 17 Gm Packet) 17 gm PO DAILY PRN PRN Reason: Constipation Last Admin: 03/01/21 20:56 Dose: 17 gm Documented by: Sodium Chloride (Sodium Chloride 0.9% 2.5 Ml Syringe) 2.5 ml FLUSH ASDIRECTED PRN PRN Reason: Keep Vein Open Sodium Chloride (Sodium Chloride 0.65% Nasal Mercedes 45 Ml Bottle) 0 ml RASHMI Q4H PRN PRN Reason: nasal dryness/congestion Last Admin: 02/22/21 20:39 Dose: 2 spray Documented by: Valacyclovir HCl (Valacyclovir 500 Mg Tab) 1,000 mg PO DAILY [facility] Last Admin: 03/02/21 08:02 Dose: 1,000 mg Documented by: Discontinued Medications Acetaminophen (Acetaminophen 500 Mg Tab) 1,000 mg PO ONETIME ONE Stop: 02/21/21 09:01 Last Admin: 02/21/21 09:00 Dose: 1,000 mg Documented by: Acetaminophen (Acetaminophen 500 Mg Tab) 1,000 mg PO Q8H PRN PRN Reason: Pain Last Admin: 02/22/21 01:00 Dose: 1,000 mg Documented by: Acetazolamide (Acetazolamide 250 Mg Tab) 500 mg PO ONETIME ONE Stop: 02/21/21 17:01 Last Admin: 02/21/21 17:16 Dose: 500 mg Documented by: Albuterol (Albuterol 0.083% 2.5 Mg/3 Ml Neb Soln) Confirm Administered Dose 2.5 mg .ROUTE .STK-MED ONE Stop: 02/20/21 23:11 Last Admin: 02/20/21 23:19 Dose: 2.5 mg Documented by: Albuterol/Ipratropium (Albuterol/Ipratropium 3.0-0.5 Mg/3 Ml Neb Soln) 3 ml NEB Q4HRRT PRN PRN Reason: Shortness Of Breath/wheezing Azithromycin (Azithromycin 500 Mg Vial) 250 mg IV Q24H [facility] Last Admin: 02/20/21 22:40 Dose: Not Given Documented by: Ceftriaxone Sodium (Ceftriaxone 1 Gm Vial) 1 gm IVPUSH Q24H [facility] Last Admin: 02/20/21 22:54 Dose: Not Given Documented by: Furosemide (Furosemide 40 Mg/4 Ml Vial) 20 mg IVPUSH NOW ONE Stop: 02/20/21 16:25 Last Admin: 02/20/21 16:54 Dose: 20 mg Documented by: Furosemide (Furosemide 40 Mg/4 Ml Vial) 40 mg IVPUSH BID [facility] Last Admin: 02/23/21 09:11 Dose: 40 mg Documented by: Furosemide (Furosemide 40 Mg/4 Ml Vial) 40 mg IVPUSH TID [facility] Last Admin: 02/25/21 06:24 Dose: 40 mg Documented by: Furosemide (Furosemide 40 Mg/4 Ml Vial) 40 mg IVPUSH BID [facility] Last Admin: 02/25/21 20:58 Dose: 40 mg Documented by: Gabapentin (Gabapentin 300 Mg Cap) 300 mg PO BID [facility] Last Admin: 02/28/21 12:26 Dose: Not Given Documented by: Gabapentin (Gabapentin 100 Mg Cap) 100 mg PO BID [facility] Last Admin: 03/02/21 08:02 Dose: 100 mg Documented by: Gabapentin (Gabapentin 100 Mg Cap) 200 mg PO ONETIME ONE Stop: 03/02/21 09:46 Last Admin: 03/02/21 10:41 Dose: 200 mg Documented by: Heparin Sodium (Porcine) (Heparin Sodium 5,000 Units/Ml Vial) 5,000 units SUBCUT Q8H [facility] Last Admin: 02/22/21 04:31 Dose: Not Given Documented by: Azithromycin 500 mg/ Sodium (Chloride) 250 mls @ 250 mls/hr IV ONETIME [facility] Last Admin: 02/20/21 22:10 Dose: 250 mls/hr Documented by: Ceftriaxone Sodium/Dextrose 1 (gm/ Premix) 50 mls @ 100 mls/hr IV Q24H [facility] Last Admin: 02/21/21 22:53 Dose: 100 mls/hr Documented by: Azithromycin 500 mg/ Sodium (Chloride) 250 mls @ 250 mls/hr IV Q24H [facility] Last Admin: 02/21/21 20:42 Dose: 250 mls/hr Documented by: Lidocaine (Lidocaine 5% 700 Mg Patch) 700 mg TRDERM Q24H [facility] Last Admin: 02/22/21 09:01 Dose: Not Given Documented by: Metolazone (Metolazone 5 Mg Tab) 2.5 mg PO ONETIME ONE Stop: 02/23/21 09:55 Last Admin: 02/23/21 11:25 Dose: Not Given Documented by: Metolazone (Metolazone 5 Mg Tab) 2.5 mg PO ONETIME ONE Stop: 02/23/21 13:31 Last Admin: 02/23/21 13:35 Dose: 2.5 mg Documented by: Miscellaneous Information (Remove Patch) 1 ea TRDERM Q24H [facility] Last Admin: 02/21/21 21:03 Dose: Not Given Documented by: Morphine Sulfate (Morphine 2 Mg/Ml Syringe) 2 mg IVPUSH ONETIME ONE Stop: 02/20/21 18:14 Last Admin: 02/20/21 18:18 Dose: 2 mg Documented by: Morphine Sulfate (Morphine 2 Mg/Ml Syringe) 1 mg IVPUSH Q4H PRN PRN Reason: Pain Last Admin: 02/21/21 12:54 Dose: 1 mg Documented by: Mycophenolate Mofetil (Mycophenolate Mofetil 250 Mg Cap Own Med) 250 mg PO BID [facility] Last Admin: 02/21/21 10:14 Dose: Not Given Documented by: Oxycodone HCl (Oxycodone 5 Mg Tab) 5 mg PO Q4H PRN PRN Reason: Pain Last Admin: 02/23/21 09:11 Dose: 5 mg Documented by: Oxycodone HCl (Oxycodone 5 Mg Tab) 5 mg PO ONETIME ONE Stop: 02/23/21 10:11 Last Admin: 02/23/21 10:17 Dose: 5 mg Documented by: Oxycodone HCl (Oxycodone 5 Mg Tab) 10 mg PO Q4H PRN PRN Reason: Pain Last Admin: 02/24/21 11:34 Dose: 10 mg Documented by: Oxycodone HCl (Oxycodone 5 Mg Tab) 10 mg PO Q3H PRN PRN Reason: Pain Last Admin: 02/26/21 10:08 Dose: 5 mg Documented by: Potassium Chloride (Potassium Chloride 20 Meq Tab.Er) 40 meq PO ONETIME ONE Stop: 02/22/21 08:41 Last Admin: 02/22/21 08:54 Dose: 40 meq Documented by: Sodium Chloride (Sodium Chloride 0.9% 10 Ml Syringe) 10 ml FLUSH ASDIRECTED PRN PRN Reason: Keep Vein Open Last Admin: 02/20/21 15:47 Dose: 10 ml Documented by: Sodium Chloride (Sodium Chloride 0.9% 2.5 Ml Syringe) 2.5 ml FLUSH ASDIRECTED PRN PRN Reason: Keep Vein Open Last Admin: 02/20/21 15:47 Dose: 2.5 ml Documented by: Tacrolimus (Tacrolimus 0.75 Mg CapOwn Med) 0 mg PO DAILY [facility] Last Admin: 02/21/21 02:18 Dose: Not Given Documented by: Tacrolimus (Tacrolimus 0.75 Mg CapOwn Med) 0 mg PO DAILY [facility] Last Admin: 02/21/21 10:12 Dose: Not Given Documented by:
[2021-03-02] MEDS ORDERED: Gabapentin 300 MG Cap PO SCH (21:00)
== END 2021-03-02 14:35 | disposition home or self-care (01) | DRG 194 ==
LOC: MW.ED 15:30 → MW.MS 18:15 → OBSVTOIN 02-21 08:27 → MW.ICU 02-21 09:00 → MW.MS 02-24 13:24 → MW.ICU 02-24 13:24 → MW.MS 02-28 16:53
PROVIDERS: ADMIT Student in an Organized Health Care Education/Training Program; ATTEND Student in an Organized Health Care Education/Training Program
DX: I50.33 Acute on chronic diastolic (congestive) heart failure (principal); Z94.4 Liver transplant status; J96.22 Acute and chronic respiratory failure with hypercapnia; I85.00 Esophageal varices without bleeding; I82.220 Acute embolism and thrombosis of inferior vena cava; Z94.0 Kidney transplant status; Z20.822 Contact with and (suspected) exposure to COVID-19; G92 Toxic encephalopathy; T40.605A Adverse effect of unspecified narcotics, initial encounter; F32.9 Major depressive disorder, single episode, unspecified; J45.20 Mild intermittent asthma, uncomplicated; B02.29 Other postherpetic nervous system involvement; I25.10 Atherosclerotic heart disease of native coronary artery without angina pectoris; N18.9 Chronic kidney disease, unspecified; N17.9 Acute kidney failure, unspecified; D84.9 Immunodeficiency, unspecified; T86.19 Other complication of kidney transplant; J18.9 Pneumonia, unspecified organism; H54.7 Unspecified visual loss; I08.3 Combined rheumatic disorders of mitral, aortic and tricuspid valves; E66.2 Morbid (severe) obesity with alveolar hypoventilation; Z99.81 Dependence on supplemental oxygen; Z95.828 Presence of other vascular implants and grafts; Z95.5 Presence of coronary angioplasty implant and graft; Z88.8 Allergy status to other drugs, medicaments and biological substances; Z79.899 Other long term (current) drug therapy; Z86.14 Personal history of Methicillin resistant Staphylococcus aureus infection; Z68.41 Body mass index [BMI] 40.0-44.9, adult
CPT/HCPCS: 36415; 36600; 51702; 71045; 71045-26; 71250; 71250-26; 74176; 74176-26; 80048; 80053; 80180; 80197; 81003; 82803; 83735; 83880; 84100; 84484; 85025; 85379; 87040; 93005; 93010; 93306; 93978; 93978-26; 94640; 94660; 96374; 96375; 99284; 99285-25; A9270-GY; J0456; J0696; J1644; J1940; J2270; J7050; U0002

== ENCOUNTER 2022-05-08 23:40 | Emergency (ER) | payer BC, MEDICARE ==
[2022-05-09 00:36] VITALS: BP 120/67; PULSE 90
== END 2022-05-09 02:15 | disposition left against medical advice (07) ==
LOC: MW.ED 23:40
DX: Z53.21 Procedure and treatment not carried out due to patient leaving prior to being seen by health care provider (principal)

== ENCOUNTER 2022-05-10 19:55 | Emergency (ER) | payer BC, MEDICARE ==
[2022-05-11 04:40] VITALS: BP 138/87; PULSE 102
== END 2022-05-10 23:55 | disposition home or self-care (01) ==
LOC: MW.ED 19:55
DX: M54.2 Cervicalgia (principal); Z88.8 Allergy status to other drugs, medicaments and biological substances; Z79.899 Other long term (current) drug therapy
CPT/HCPCS: 99283

== ENCOUNTER 2022-08-05 20:06 | Emergency (ER) | payer MEDICARE, BC ==
[2022-08-05] MEDS ORDERED: Acetaminophen 325 MG Tab PO ONE (22:37)
[2022-08-05] MEDS: Ibuprofen 400 MG Tab PO ONE ×2 (22:52→22:55)
[2022-08-05] MEDS ORDERED: Lidocaine 5% 700 MG Patch TOP ONE (22:53)
[2022-08-06 00:35] LABS: CARBON DIOXIDE,CO2 29.2 mmol/L (21.0-32.0); POTASSIUM,K 4.5 mmol/L (3.5-5.1)
[2022-08-06] MEDS ORDERED: Cyclobenzaprine 5 MG Tab PO SCH (01:00)
[2022-08-06] MEDS ORDERED: Cyclobenzaprine 10 MG Tab ONE (01:04)
[2022-08-06] MEDS ORDERED: Cyclobenzaprine 10 MG Tab PO ONE (01:05)
[2022-08-06 01:26] VITALS: BP 119/64; PULSE 82
== END 2022-08-06 01:13 | disposition home or self-care (01) ==
LOC: MW.ED 20:06
DX: R10.9 Unspecified abdominal pain (principal); Z88.8 Allergy status to other drugs, medicaments and biological substances; Z79.899 Other long term (current) drug therapy
CPT/HCPCS: 36415; 71045; 71250; 74176; 80053; 81001; 85025; 99284; A9270

== ENCOUNTER 2024-05-06 20:07 | Emergency (ER) | payer BC ==
[2024-05-06 20:28] LABS: BASOPHILS ABSOLUTE AUTO 0.01 K/uL (0.00-0.20); BASOPHILS PERCENT AUTO 0.2 % (0.0-1.0); EOSINOPHILS ABSOLUTE AUTO 0.13 K/uL (0.00-0.45); EOSINOPHILS PERCENT AUTO 2.4 % (0.0-6.0); HEMATOCRIT 43.9 % (42.0-52.0); HEMOGLOBIN 14.6 g/dL (14.0-18.0); IMMATURE GRAN ABSOLUTE AUTO 0.04 K/uL (0.00-0.05); IMMATURE GRAN PERCENT AUTO 0.7 % (0.0-0.4); LYMPHOCYTES ABSOLUTE AUTO 1.15 K/uL (1.00-4.80); LYMPHOCYTES PERCENT AUTO 21.3 % (24.0-44.0); MEAN CORPUSCULAR HEMOGLOBIN 31.6 pg (28.0-32.0); MEAN CORPUSCULAR HGB CONC 33.3 g/dL (32.0-36.0); MEAN PLATELET VOLUME 10.9 fL (9.4-12.4); MONOCYTES ABSOLUTE AUTO 0.33 K/uL (0.00-0.80); MONOCYTES PERCENT AUTO 6.1 % (0.0-8.0); NEUTROPHILS ABSOLUTE AUTO 3.74 K/uL (1.80-7.70); NEUTROPHILS PERCENT AUTO 69.3 % (41.0-71.0); PLATELET COUNT,PLT 87 K/uL (150-400); RED BLOOD CELL COUNT 4.62 M/uL (4.52-5.90)
[2024-05-06 20:56] LABS: A/G RATIO 1.2 (0.9-1.6); ALBUMIN 4.1 g/dL (3.4-5.0); BILIRUBIN TOTAL 0.4 mg/dL (0.2-1.0); CALCIUM 9.6 mg/dL (8.5-10.1); CARBON DIOXIDE,CO2 40.7 mmol/L (21.0-32.0); CREATININE 1.6 mg/dL (0.8-1.3); EST CRCL DRUG DOSING (CG) 49.1 mL/min; POTASSIUM,K 4.5 mmol/L (3.5-5.1); PROTEIN TOTAL,TP 7.6 g/dL (6.4-8.2)
[2024-05-06] MEDS: Sodium Chloride 0.9% 2.5 ML Syringe FLUSH PRN (22:04)
[2024-05-06] MEDS: Sodium Chloride 0.9% 10 ML Syringe FLUSH PRN (22:04)
[2024-05-06] MEDS: Aspirin 81 MG Tab.Chew PO ONE (22:04)
[2024-05-06 23:26] VITALS: BP 155/89; PULSE 80
== END 2024-05-07 00:23 ==
LOC: MW.ED 20:07
DX: I21.4 Non-ST elevation (NSTEMI) myocardial infarction (principal); I20.0 Unstable angina; I10 Essential (primary) hypertension; Z88.8 Allergy status to other drugs, medicaments and biological substances; Z79.899 Other long term (current) drug therapy; Z75.8 Other problems related to medical facilities and other health care
CPT/HCPCS: 36415; 71046; 80053; 84484; 85025; 93005; 99285; A9270; J3490; 93010

== ENCOUNTER 2024-12-25 20:08 | Emergency (ER) | payer BC ==
[2024-12-25] MEDS: Sodium Chloride 0.9% 500 ML IV ONE (20:20)
[2024-12-25 20:49] LABS: BASOPHILS ABSOLUTE AUTO 0.01 K/uL (0.00-0.20); BASOPHILS PERCENT AUTO 0.1 % (0.0-1.0); EOSINOPHILS ABSOLUTE AUTO 0.09 K/uL (0.00-0.45); HEMATOCRIT 40.6 % (42.0-52.0); HEMOGLOBIN 13.4 g/dL (14.0-18.0); IMMATURE GRAN ABSOLUTE AUTO 0.02 K/uL (0.00-0.05); IMMATURE GRAN PERCENT AUTO 0.2 % (0.0-0.4); LYMPHOCYTES ABSOLUTE AUTO 0.56 K/uL (1.00-4.80); LYMPHOCYTES PERCENT AUTO 6.3 % (24.0-44.0); MEAN CORPUSCULAR HEMOGLOBIN 31.7 pg (28.0-32.0); MEAN PLATELET VOLUME 11.3 fL (9.4-12.4); MONOCYTES ABSOLUTE AUTO 0.32 K/uL (0.00-0.80); MONOCYTES PERCENT AUTO 3.6 % (0.0-8.0); NEUTROPHILS ABSOLUTE AUTO 7.82 K/uL (1.80-7.70); NEUTROPHILS PERCENT AUTO 88.8 % (41.0-71.0); PH,VENOUS 7.42 (7.32-7.43); PLATELET COUNT,PLT 69 K/uL (150-400); RED BLOOD CELL COUNT 4.23 M/uL (4.52-5.90); WHITE BLOOD CELL COUNT,WBC 8.82 K/uL (3.9-11.3)
[2024-12-25] MEDS: Cefepime 2 GM in Sodium Chloride 0.9% 50 ML IV ONE (20:51)
[2024-12-25 21:25] LABS: A/G RATIO 1.2 (0.9-1.6); ALBUMIN 4.1 g/dL (3.4-5.0); BILIRUBIN TOTAL 0.5 mg/dL (0.2-1.0); CALCIUM 8.6 mg/dL (8.5-10.1); CARBON DIOXIDE,CO2 36.7 mmol/L (21.0-32.0); CREATININE 1.5 mg/dL (0.8-1.3); EST CRCL DRUG DOSING (CG) 48.35 mL/min; MAGNESIUM 1.4 mg/dL (1.8-2.4); POTASSIUM,K 4.3 mmol/L (3.5-5.1); PROTEIN TOTAL,TP 7.4 g/dL (6.4-8.2)
[2024-12-25 21:41] LABS: CORONAVIRUS COVID-19 NAA NEGATIVE (NEGATIVE); INFLUENZA A NAA NEGATIVE (NEGATIVE); INFLUENZA B NAA NEGATIVE (NEGATIVE); RESPIRATORY SYNCYTIAL VIR NAA NEGATIVE (NEGATIVE)
[2024-12-25] MEDS: Acetaminophen 500 MG Tab PO ONE (21:45)
[2024-12-25] MEDS: Albuterol/Ipratropium 3.0-0.5 MG/3 ML Neb Soln NEB ONE (21:45)
[2024-12-25] MEDS: Norepinephrine Bit/D5W Premix 250 ML IV SCH (21:50)
[2024-12-25] MEDS: Sodium Chloride 0.9% 1,500 ML IV ONE (21:52)
[2024-12-25] MEDS: Magnesium Sulf/Wat 2 GM/50 mL 2 GM in Premix Bag 1 BAG IV ONE (21:52)
[2024-12-25] MEDS: VANCOmycin 1.75 GM/350 ML 1.75 GM in Premix Bag 1 BAG IV ONE (22:04)
[2024-12-25 22:08] LABS: BASE EXCESS VENOUS 11.1 (-2.0-3.0); PH,VENOUS 7.38 (7.32-7.43)
[2024-12-25] MEDS: LORazepam 2 MG/ML SDV IVPUSH ONE (22:17)
[2024-12-25] MEDS ORDERED: Sodium Chloride 0.9% 1,000 ML IV ONE (23:54)
[2024-12-26] MEDS: Sodium Chloride 0.9% 500 ML IV ONE (00:13)
[2024-12-26 00:14] LABS: INR 0.96 (0.86-1.11)
[2024-12-26 01:11] LABS: APPEARANCE,URINE CLEAR; BILIRUBIN,URINE NEGATIVE (NEGATIVE); COLOR,URINE YELLOW; GLUCOSE,URINE NEGATIVE (NEGATIVE); KETONES,URINE TRACE mg/dL (NEGATIVE); LEUKOCYTE ESTERASE,URINE NEGATIVE (NEGATIVE); NITRITE,URINE NEGATIVE (NEGATIVE); OCCULT BLOOD,URINE TRACE-INTACT (NEGATIVE); PH,URINE 5.5 (5.0-8.0); PROTEIN,URINE 30 mg/dL (NEGATIVE); UROBILINOGEN,URINE 0.2 EU/dL (<2.0)
[2024-12-26 01:20] LABS: BACTERIA,URINE FEW (NEGATIVE); EPITHELIAL CELLS,URINE RARE (NONE-FEW); MUCUS,URINE LIGHT (NONE-MOD); RBC,URINE 0-2 (0-2/HPF); WBC,URINE NONE SEEN (0-5/HPF)
[2024-12-26 02:13] VITALS: BP 104/57; PULSE 106
== END 2024-12-26 02:15 ==
LOC: MW.ED 20:08
DX: A41.9 Sepsis, unspecified organism (principal); R65.21 Severe sepsis with septic shock; J96.12 Chronic respiratory failure with hypercapnia; E83.42 Hypomagnesemia; D84.821 Immunodeficiency due to drugs; J18.9 Pneumonia, unspecified organism; I50.9 Heart failure, unspecified; N18.9 Chronic kidney disease, unspecified; Z91.041 Radiographic dye allergy status; Z79.899 Other long term (current) drug therapy; Z94.0 Kidney transplant status; Z95.5 Presence of coronary angioplasty implant and graft
CPT/HCPCS: 0241U; 36415; 36556; 70450; 71045; 71250; 74176; 80053; 81001; 82803; 83605; 83690; 83735; 83880; 84484; 85025; 85610; 87040; 93005; 94660; 96361; 96365; 96366; 96367; 96368; 96375; 99285; A9270; J0692; J2060; J3372; J3475; J7030; J7620; 93010